=== PATIENT | male | born 1955 | race Caucasian/White ===

== ENCOUNTER 2021-05-30 17:23 | Inpatient (IN) | payer MEDICARE, OTHER ==
[2021-05-30] MEDS ORDERED: Sodium Chloride 0.9% 10 ML Syringe FLUSH PRN (18:23)
[2021-05-30] MEDS ORDERED: Sodium Chloride 0.9% 2.5 ML Syringe FLUSH PRN (18:23)
[2021-05-30] MEDS: Sodium Chloride 0.9% 1,000 ML IV ONE ×2 (18:28→19:17)
[2021-05-30] MEDS ORDERED: Ketorolac 30 MG/ML SDV IVPUSH ONE (18:35)
[2021-05-30] MEDS ORDERED: Ondansetron 4 MG/2 ML SDV IVPUSH ONE (18:35)
[2021-05-30] MEDS ORDERED: HYDROmorphone 2 MG/ML Syringe IVPUSH ONE (18:35)
--- NOTE | 2021-05-30 18:45 | PCM.EKG ---
#1 Interpretation EKG Date: 05/30/21 Time: 18:44 EKG Interpretation Comments: 106, sinus tachycardia, nonspecific ST/T findings
[2021-05-30 19:02] LABS: BLOOD UREA NITROGEN,BUN 15 mg/dL (7.0-18.0); CARBON DIOXIDE,CO2 23.6 mmol/L (21.0-32.0); CHLORIDE,CL 102 mmol/L (98-107); GLUCOSE RANDOM 158 mg/dL (74-106); LIPASE 76 U/L (73-393); POTASSIUM,K 3.6 mmol/L (3.5-5.1); SODIUM,NA 137 mmol/L (136-148)
[2021-05-30] MEDS ORDERED: Sodium Chloride 0.9% 1,000 ML IV ONE ×2 (19:02→22:16)
--- NOTE | 2021-05-30 19:15 | EDM.PDOC ---
ED HPI GENERAL MEDICAL PROBLEM - General Chief Complaint: Abdominal Pain Stated Complaint: STOMACH PAIN Time Seen by Provider: 05/30/21 18:14 Source of Information: Reports: Patient History Limitations: Reports: No Limitations - History of Present Illness INITIAL COMMENTS - FREE TEXT/NARRATIVE: HISTORY AND PHYSICAL: History of present illness: Patient is a 65-year-old male who presents emergency room today with concern of right upper quadrant abdominal pain over the past 3 to 4 days with decrease in appetite and states that he has not been able to eat or drink due to decrease in appetite and nausea. Patient states that his symptoms started after eating a [employer] burger a few days ago. Patient states that he has continued to have worsening pain and nausea and states that he has not tried to eat or drink due to his symptoms. Patient states he has a history of hypertension, hyperlipidemia, and type 2 diabetes on Metformin and denies any other health history. Patient denies any abdominal surgeries. Patient does state the pain does radiate into his chest at times. Patient denies fever, chills, shortness of breath, or cough. Denies headache, neck stiff ness, change in vision, syncope, or near syncope. Denies vomiting, diarrhea, constipation, or dysuria. Has not noted any blood in urine or stool. Review of systems: As per history of present illness and below otherwise all systems reviewed and negative. Past medical history: As per history of present illness and as reviewed below otherwise noncontributory. Surgical history: As per history of present illness and as reviewed below otherwise noncontributory. Social history: See social history for further information Family history: As per history of present illness and as reviewed below otherwise noncontributory. Physical exam: General: Patient is alert, oriented, and in no acute distress. Patient sitting comfortably on exam table. Patient is tachycardic 115's on exam, otherwise vitally stable and reviewed by me. HEENT: Atraumatic, normocephalic, pupils equal and reactive bilaterally, negative for conjunctival pallor or scleral icterus, mucous membranes moist, TMs normal bilaterally, throat clear, neck supple, nontender, trachea midline. No drooling or trismus noted. No meningeal signs. No hot potato voice noted. Lungs: Clear to auscultation, breath sounds equal bilaterally, chest nontender. Heart: S1S2, regular rate and rhythm without overt murmur Abdomen: Soft, nondistended, severe right upper quadrant tenderness with positive Dumont sign and guarding, negative rebound tenderness. Negative for masses or hepatosplenomegaly. Negative for costovertebral tenderness. Pelvis: Stable nontender. Genitourinary: Deferred. Rectal: Deferred. Skin: Intact, warm, dry. No lesions or rashes noted. Extremities: Atraumatic, negative for cords or calf pain. Neurovascular unremarkable. Neuro: Awake, alert, oriented. Cranial nerves II through XII unremarkable. Cerebellum unremarkable. Motor and sensory unremarkable throughout. Exam nonfocal. Notes: Patient is a 65-year-old male who presents emergency room today secondary to right upper quadrant abdominal pain over the past 2 days and decrease in appetite. Upon arrival to the ED, patient is tachycardic 115's on exam otherwise vitally stable. Patient does have significant right upper quadrant tenderness with positive Dumont sign and guarding. Will obtain lab work as well as cardiac evaluation with plan to obtain a right upper quadrant ultrasound abdominal pelvic CT scan with contrast. CBC shows a leukocytosis of 23.32 (will obtain lactate and blood cultures), otherwise mild derangements of CBC unremarkable. CMP shows a mildly elevated glucose at 158, bilirubin elevated at 1.4, alk phos elevated at 121, otherwise CMP unremarkable. Troponin negative. Lipase within normal limits. Lactate within normal limits blood cultures pending. Abd/Pelvic CT shows findings consistent with acute cholecystitis in the correct clinical setting. Hepatomegaly with hepatic steatosis. Colonic diverticulosis without diverticulitis. Abdominal ultrasound shows hepatomegaly with diffuse fatty infiltration. Gallbladder sludge and an otherwise normal-appearing gallbladder. NormalCommon bile duct. Sonographic positive Dumont sign Upon reevaluation of patient, he has improvement of his symptoms with ther apeutics given today in the ED. His tachycardia has now resolved to 93 bpm with therapeutics given today in the emergency room. I did call and speak to the general surgeon on-call, Dr. Quinteros, and thoroughly discussed patient's case. She would like patient to be admitted to the hospitalist with consult to her due to his diabetes. I did call and speak to the hospitalist on-call, Dr. Lomeli, and thoroughly discussed patient's case. Will admit to inpatient to Dr. Lomeli with consult to Dr. Quinteros, general surgery Voices understanding and is agreeable to plan of care. Denies any further questi ons or concerns at this time. Diagnostics: EKG, CBC, CMP, UA, chest x-ray, troponin, abdominal pelvic CT with contrast, right upper quadrant ultrasound, lactate, blood cultures x 2 Therapeutics: Normal saline bolus x2, Zofran, Toradol, Dilaudid, Zosyn Impression: Acute cholecystitis Plan: Admit to inpatient to Dr. Lomeli with consult to general surgeon, Dr. Quinteros Definitive disposition and diagnosis as appropriate pending reevaluation and review of above. epigastric Pain Score (Numeric/FACES): 8 - Related Data Allergies Allergy/AdvReac Type Severity Reaction Status Date / Time No Known Allergies Allergy Verified 05/30/21 18:17 Past Medical History HEENT History: Reports: Impaired Vision Cardiovascular History: Reports: High Cholesterol, Hypertension Respiratory History: Reports: None Gastrointestinal History: Reports: Fatty Liver Genitourinary History: Reports: None Musculoskeletal History: Reports: None Neurological History: Reports: None Psychiatric History: Reports: None Endocrine/Metabolic History: Reports: Diabetes, Type II Hematologic History: Reports: None Immunologic History: Reports: None Oncologic (Cancer) History: Reports: None Dermatologic History: Reports: None - Infectious Disease History Infectious Disease History: Reports: None - Past Surgical History Head Surgeries/Procedures: Reports: None HEENT Surgical History: Reports: None Cardiovascular Surgical History: Reports: None Respiratory Surgical History: Reports: None GI Surgical History: Reports: None Male Surgical History: Reports: None Endocrine Surgical History: Reports: None Neurological Surgical History: Reports: None Musculoskeletal Surgical History: Reports: None Oncologic Surgical History: Reports: None Dermatological Surgical History: Reports: None Social & Family History - Family History Family Medical History: No Pertinent Family History - Tobacco Use Tobacco Use Status *Q: Never Tobacco User Second Hand Smoke Exposure: No - Caffeine Use Caffeine Use: Reports: Soda - Recreational Drug Use Recreational Drug Use: No ED ROS GENERAL - Review of Systems Review Of Systems: Comprehensive ROS is negative, except as noted in HPI. ED EXAM, GENERAL - Physical Exam Exam: See Below (see dictation) Course - Vital Signs Last Recorded V/S: Last Vital Signs Temp 96.8 F L 05/30/21 18:18 Pulse 93 05/30/21 22:55 Resp 16 05/30/21 22:55 BP 130/77 05/30/21 22:55 Pulse Ox 97 05/30/21 22:55 - Orders/Labs/Meds Orders: Active Orders 24 hr Category Date Time Status Admission Status [Patient Status] [ADT] Stat ADT 05/30/21 22:24 Active Cardiac Monitoring [RC] . DIRECTED Care 05/30/21 18:23 Active EKG Documentation Completion [RC] STAT Care 05/30/21 18:23 Active Notify Provider Consults [RC] ASDIRECTED Care 05/30/21 22:11 Active Consult to Physician [CONS] Stat Cons 05/30/21 22:10 Active CULTURE BLOOD [BC] Stat Lab 05/30/21 19:03 Received CULTURE BLOOD [BC] Stat Lab 05/30/21 19:03 Received UA RFX NORMA AND CULT IF INDIC [URIN] Stat Lab 05/30/21 18:23 Ordered Piperacillin/Tazobactam [Piperacil-Tazobact] 3.375 gm Med 05/31/21 04:00 Active Sodium Chloride 0.9% [Normal Saline] 50 ml IV Q6H Sodium Chloride 0.9% [Normal Saline] 1,000 ml Med 05/30/21 22:16 Active IV STAT Sodium Chloride 0.9% [Saline Flush] Med 05/30/21 18:23 Active 10 ml FLUSH ASDIRECTED PRN Sodium Chloride 0.9% [Saline Flush] Med 05/30/21 18:23 Active 2.5 ml FLUSH ASDIRECTED PRN Blood Culture x2 Reflex Set [OM.PC] Stat Oth 05/30/21 18:54 Ordered Saline Lock Insert [OM.PC] Stat Oth 05/30/21 18:23 Ordered Medication Orders Sodium Chloride (Normal Saline) 1,000 mls @ 125 mls/hr IV STAT ONE Stop: 05/31/21 06:15 Last Admin: 05/30/21 22:51 Dose: 125 mls/hr Documented by: [email or web address] Piperacillin Sod/Tazobactam (Sod 3.375 gm/ Sodium Chloride) 50 mls @ 100 mls/hr IV Q6H SHANTELL Sodium Chloride (Sodium Chloride 0.9% 2.5 Ml Syringe) 2.5 ml FLUSH ASDIRECTED PRN PRN Reason: Keep Vein Open Last Admin: 05/30/21 18:29 Dose: 2.5 ml Documented by: [email or web address] Sodium Chloride (Sodium Chloride 0.9% 10 Ml Syringe) 10 ml FLUSH ASDIRECTED PRN PRN Reason: Keep Vein Open Last Admin: 05/30/21 18:29 Dose: 10 ml Documented by: ERNST Labs: Laboratory Tests 05/30/21 05/30/21 05/30/21 Range/Units 18:30 18:30 18:30 WBC 23.32 H (4.0-11.0) K/uL RBC 5.33 (4.50-5.90) M/uL Hgb 15.5 (13.0-17.0) g/dL Hct 45.3 (38.0-50.0) % MCV 85.0 (80.0-98.0) fL MCH 29.1 (27.0-32.0) pg MCHC 34.2 (31.0-37.0) g/dL RDW Std Deviation 46.9 (28.0-62.0) fl RDW Coeff of Ortega 15 (11.0-15.0) % Plt Count 315 (150-400) K/uL MPV 10.30 (7.40-12.00) fL Neut % (Auto) 85.9 H (48.0-80.0) % Lymph % (Auto) 4.9 L (16.0-40.0) % Stevens % (Auto) 8.9 (0.0-15.0) % Eos % (Auto) 0.2 (0.0-7.0) % Baso % (Auto) 0.1 (0.0-1.5) % Neut # (Auto) 20.0 H (1.4-5.7) K/uL Lymph # (Auto) 1.2 (0.6-2.4) K/uL Stevens # (Auto) 2.1 H (0.0-0.8) K/uL Eos # (Auto) 0.0 (0.0-0.7) K/uL Baso # (Auto) 0.0 (0.0-0.1) K/uL Nucleated RBC % 0.0 /100WBC Nucleated RBCs # 0 K/uL Sodium 137 (136-148) mmol/L Potassium 3.6 (3.5-5.1) mmol/L Chloride 102 (98-107) mmol/L Carbon Dioxide 23.6 (21.0-32.0) mmol/L BUN 15 (7.0-18.0) mg/dL Creatinine 1.2 (0.8-1.3) mg/dL Est Cr Clr Drug Dosing 64.49 mL/min Estimated GFR (MDRD) > 60.0 ml/min Glucose 158 H (74-106) mg/dL Hemoglobin A1c (4.5 - 6.2) % Lactic Acid (0.4-2.0) mmol/L Calcium 8.9 (8.5-10.1) mg/dL Magnesium 1.9 (1.8-2.4) mg/dL Total Bilirubin 1.4 H (0.2-1.0) mg/dL AST 15 (15-37) IU/L ALT 29 (14-63) IU/L Alkaline Phosphatase 121 H (46-116) U/L Troponin I < 0.050 (0.000-0.056) ng/mL Total Protein 7.7 (6.4-8.2) g/dL Albumin 3.7 (3.4-5.0) g/dL Globulin 4.0 (2.6-4.0) g/dL Albumin/Globulin Ratio 0.9 (0.9-1.6) Lipase 76 (73-393) U/L 05/30/21 05/30/21 Range/Units 18:30 18:43 WBC (4.0-11.0) K/uL RBC (4.50-5.90) M/uL Hgb (13.0-17.0) g/dL Hct (38.0-50.0) % MCV (80.0-98.0) fL MCH (27.0-32.0) pg MCHC (31.0-37.0) g/dL RDW Std Deviation (28.0-62.0) fl RDW Coeff of Ortega (11.0-15.0) % Plt Count (150-400) K/uL MPV (7.40-12.00) fL Neut % (Auto) (48.0-80.0) % Lymph % (Auto) (16.0-40.0) % Stevens % (Auto) (0.0-15.0) % Eos % (Auto) (0.0-7.0) % Baso % (Auto) (0.0-1.5) % Neut # (Auto) (1.4-5.7) K/uL Lymph # (Auto) (0.6-2.4) K/uL Stevens # (Auto) (0.0-0.8) K/uL Eos # (Auto) (0.0-0.7) K/uL Baso # (Auto) (0.0-0.1) K/uL Nucleated RBC % /100WBC Nucleated RBCs # K/uL Sodium (136-148) mmol/L Potassium (3.5-5.1) mmol/L Chloride (98-107) mmol/L Carbon Dioxide (21.0-32.0) mmol/L BUN (7.0-18.0) mg/dL Creatinine (0.8-1.3) mg/dL Est Cr Clr Drug Dosing mL/min Estimated GFR (MDRD) ml/min Glucose (74-106) mg/dL Hemoglobin A1c 6.2 (4.5 - 6.2) % Lactic Acid 1.3 (0.4-2.0) mmol/L Calcium (8.5-10.1) mg/dL Magnesium (1.8-2.4) mg/dL Total Bilirubin (0.2-1.0) mg/dL AST (15-37) IU/L ALT (14-63) IU/L Alkaline Phosphatase (46-116) U/L Troponin I (0.000-0.056) ng/mL Total Protein (6.4-8.2) g/dL Albumin (3.4-5.0) g/dL Globulin (2.6-4.0) g/dL Albumin/Globulin Ratio (0.9-1.6) Lipase (73-393) U/L Meds: Medications Generic Name Dose Route Start Last Admin Trade Name Freq PRN Reason Stop Dose Admin Sodium Chloride 1,000 mls @ 125 mls/hr 05/30/21 22:16 05/30/21 22:51 Normal Saline IV 05/31/21 06:15 125 mls/hr STAT ONE Administration Piperacillin Sod/Tazobactam 50 mls @ 100 mls/hr 05/31/21 04:00 Sod 3.375 gm/ Sodium Chloride IV Q6H SHANTELL Sodium Chloride 2.5 ml 05/30/21 18:23 05/30/21 18:29 Sodium Chloride 0.9% 2.5 Ml Syringe FLUSH 2.5 ml ASDIRECTED PRN Administration Keep Vein Open Sodium Chloride 10 ml 05/30/21 18:23 05/30/21 18:29 Sodium Chloride 0.9% 10 Ml Syringe FLUSH 10 ml ASDIRECTED PRN Administration Keep Vein Open Discontinued Medications Generic Name Dose Route Start Last Admin Trade Name Freq PRN Reason Stop Dose Admin Hydromorphone HCl 0.5 mg 05/30/21 18:35 05/30/21 18:55 Hydromorphone 2 Mg/Ml Syringe IVPUSH 05/30/21 18:36 0.5 mg ONETIME ONE Administration Sodium Chloride 1,000 mls @ 999 mls/hr 05/30/21 18:24 05/30/21 19:17 Normal Saline IV 05/30/21 19:24 Infused STAT ONE Infusion Sodium Chloride 1,000 mls @ 999 mls/hr 05/30/21 19:02 05/30/21 19:18 Normal Saline IV 05/30/21 20:02 999 mls/hr STAT ONE Administration Piperacillin Sod/Tazobactam 50 mls @ 100 mls/hr 05/30/21 22:06 05/30/21 22:49 Sod 3.375 gm/ Sodium Chloride IV 05/30/21 22:35 100 mls/hr ONETIME ONE Administration Iopamidol 100 ml 05/30/21 20:51 05/30/21 20:51 Iopamidol 755 Mg/Ml 100 Ml Bottle IVPUSH 05/30/21 20:52 100 ml ONETIME ONE Administration Ketorolac Tromethamine 30 mg 05/30/21 18:35 05/30/21 18:56 Ketorolac 30 Mg/Ml Sdv IVPUSH 05/30/21 18:36 30 mg ONETIME ONE Administration Ondansetron HCl 4 mg 05/30/21 18:35 05/30/21 18:57 Ondansetron 4 Mg/2 Ml Sdv IVPUSH 05/30/21 18:36 4 mg ONETIME ONE Administration Departure - Departure Time of Disposition: 22:52 Disposition: Admitted As Inpatient 65 Clinical Impression: Acute cholecystitis - Discharge Information Referrals: PCP,Not In Area [Primary Care Provider] - Forms: ED Department Discharge Sepsis Event Note (ED) - Evaluation Sepsis Screening Result: No Definite Risk - Focused Exam Vital Signs: Vital Signs Temp Pulse Resp BP Pulse Ox 05/30/21 22:55 93 16 130/77 97 05/30/21 18:18 96.8 F L 114 H 18 136/96 H 94 L - My Orders Last 24 Hours: My Active Orders 05/30/21 18:23 Cardiac Monitoring [RC] . DIRECTED EKG Documentation Completion [RC] STAT UA RFX NORMA AND CULT IF INDIC [URIN] Stat Sodium Chloride 0.9% [Saline Flush] 10 ml FLUSH ASDIRECTED PRN Sodium Chloride 0.9% [Saline Flush] 2.5 ml FLUSH ASDIRECTED PRN Saline Lock Insert [OM.PC] Stat 05/30/21 18:54 Blood Culture x2 Reflex Set [OM.PC] Stat 05/30/21 19:03 CULTURE BLOOD [BC] Stat CULTURE BLOOD [BC] Stat 05/30/21 22:10 Consult to Physician [CONS] Stat 05/30/21 22:11 Notify Provider Consults [RC] ASDIRECTED 05/30/21 22:16 Sodium Chloride 0.9% [Normal Saline] 1,000 ml IV STAT 05/30/21 22:24 Admission Status [Patient Status] [ADT] Stat - Assessment/Plan Last 24 Hours: My Active Orders 05/30/21 18:23 Cardiac Monitoring [RC] . DIRECTED EKG Documentation Completion [RC] STAT UA RFX NORMA AND CULT IF INDIC [URIN] Stat Sodium Chloride 0.9% [Saline Flush] 10 ml FLUSH ASDIRECTED PRN Sodium Chloride 0.9% [Saline Flush] 2.5 ml FLUSH ASDIRECTED PRN Saline Lock Insert [OM.PC] Stat 05/30/21 18:54 Blood Culture x2 Reflex Set [OM.PC] Stat 05/30/21 19:03 CULTURE BLOOD [BC] Stat CULTURE BLOOD [BC] Stat 05/30/21 22:10 Consult to Physician [CONS] Stat 05/30/21 22:11 Notify Provider Consults [RC] ASDIRECTED 05/30/21 22:16 Sodium Chloride 0.9% [Normal Saline] 1,000 ml IV STAT 05/30/21 22:24 Admission Status [Patient Status] [ADT] Stat
[2021-05-30] MEDS ORDERED: Iopamidol 755 Mg/ML 100 ML Bottle IVPUSH ONE (20:51)
--- NOTE | 2021-05-30 21:12 | CR ---
INDICATION: Pain and shortness of breath. TECHNIQUE: AP portable chest x-ray. FINDINGS: Prominent fat pad at the cardiac apex. Heart size normal. Tortuous descending thoracic aorta. No focal infiltrate or consolidation in either lung. Mild elevation right hemidiaphragm. Chest otherwise negative without acute disease. Dictated by Anthony Yousif MD @ 05/30/2021 9:09:[address] Anthony Yousif @ May 30 2021 9:09PM
--- NOTE | 2021-05-30 21:43 | CT ---
INDICATION: Abdominal pain TECHNIQUE: CT abdomen and pelvis acquired with IV contrast. 100 mL of Isovue 370 administered. COMPARISON: None available FINDINGS: Lower chest: A 2-3 mm right lower lobe nodule on image 20 of series 201, statistically postinflammatory by size, without history of neoplasm or high risk factors. Sub centimeter distal periesophageal lymph nodes, nonspecific. Liver: Hepatomegaly measuring 22 cm. Hepatic steatosis. Spleen: Unremarkable. Pancreas: Unremarkable. Gallbladder and bile ducts: A distended gallbladder with gallbladder wall thickening, pericholecystic stranding and edema, as well as small regional fluid. Apparent gallbladder sludge, and focal increased attenuation in the proximal cystic duct on image 53 of series 201 and images 50 and 51 of series 203. A small ovoid high attenuation focus near the gallbladder neck on image 55 of series 201 could be pericholecystic and may represent a small enhancing reactive lymph node. No biliary dilatation. Adrenal glands: Unremarkable. Kidneys: Partial duplication of the right renal collecting system. No hydronephrosis. Subcentimeter left renal low-density lesions, statistically small cysts. GI tract: No bowel obstruction. A normal appendix. Left colonic diverticulosis without diverticulitis. Vascular structures: Atherosclerotic changes. Lymph nodes: No abnormally enlarged lymph nodes. Miscellaneous: No free air. Small fat containing inguinal hernias. Pelvic Organs: Mild bladder wall prominence could be related to incomplete distention. A grossly unremarkable prostate. Bones: Degenerative changes in the spine and slight lumbar scoliosis. Mild, early degenerative changes in the hips. IMPRESSION: Findings consistent with acute cholecystitis in the correct clinical setting. Hepatomegaly and hepatic steatosis. Colonic diverticulosis without diverticulitis. Other findings as above. Please note that all CT scans at this facility use dose modulation, iterative reconstruction, and/or weight-based dosing when appropriate to reduce radiation dose to as low as reasonably achievable. Dictated by Rnezo Burroughs MD @ 05/30/2021 9:41:[address] Renzo Burroughs @ May 30 2021 9:41PM
[2021-05-30] MEDS ORDERED: Piperacillin/Tazobactam 3.375 GM in Sodium Chloride 0.9% 50 ML IV ONE (22:06)
--- NOTE | 2021-05-30 22:23 | US ---
INDICATION: Right upper quadrant pain TECHNIQUE: Ultrasound abdomen limited. Sonographic images of the right upper quadrant were obtained using yan-scale and color Doppler images. COMPARISON: None FINDINGS: Liver: Hepatomegaly at 19.2 centimeters with diffuse fatty infiltration. No masses. No intrahepatic biliary dilatation. Hepatopetal portal flow. Gallbladder: Gallbladder sludge is present. Normal wall thickness. No pericholecystic fluid. Positive sonographic Dumont sign. Common bile duct: 2 mm. Pancreas: Normal. Right kidney: 11.4 cm. Normal echotexture and cortex. No masses, stones, or hydronephrosis. IMPRESSION: Hepatomegaly with diffuse fatty infiltration. Gallbladder sludge in an otherwise normal appearing gallbladder. Normal common bile duct. Positive sonographic Dumont sign. Dictated by Loc Lopez MD @ 05/30/2021 10:20:[address] Loc Lopez @ May 30 2021 10:20PM
[2021-05-30 22:24] LABS: HEMOGLOBIN A1C 6.2 %
--- NOTE | 2021-05-30 23:58 | PCM.HP.2 ---
H&P History of Present Illness - General Date of Service: 05/31/21 Admit Problem/Dx: Admission Diagnosis/Problem Admission Diagnosis/Problem Acute cholecystitis - History of Present Illness Initial Comments - Free Text/Narative: 65 yo male with pmh of DM and HTN who presents with three day history of right upper quadrant pain. Patient denies any fevers, nausea or vomiting. CT scan in the ED was suggestive of cholecystitis. epigastric Pain Score (Numeric/FACES): 8 - Related Data Allergies/Adverse Reactions: Allergies Allergy/AdvReac Type Severity Reaction Status Date / Time No Known Allergies Allergy Verified 05/31/21 01:49 Home Medications: Home Meds Aspirin [Ecotrin EC] 81 mg PO DAILY 05/31/21 [History] Escitalopram [Lexapro] 20 mg PO DAILY 05/31/21 [History] Meloxicam PO DAILY 05/31/21 [History] Naproxen Sodium [Naproxen Sodium ER] 500 mg PO BID 05/31/21 [History] atorvaSTATin [Lipitor] 40 mg PO DAILY 05/31/21 [History] metFORMIN [Glucophage XR] 500 mg PO DAILY 05/31/21 [History] Past Medical History HEENT History: Reports: Impaired Vision Cardiovascular History: Reports: High Cholesterol, Hypertension Respiratory History: Reports: None Gastrointestinal History: Reports: Fatty Liver Genitourinary History: Reports: None Musculoskeletal History: Reports: None Neurological History: Reports: None Psychiatric History: Reports: None Endocrine/Metabolic History: Reports: Diabetes, Type II Hematologic History: Reports: None Immunologic History: Reports: None Oncologic (Cancer) History: Reports: None Dermatologic History: Reports: None - Infectious Disease History Infectious Disease History: Reports: None - Past Surgical History Head Surgeries/Procedures: Reports: None HEENT Surgical History: Reports: None Cardiovascular Surgical History: Reports: None Respiratory Surgical History: Reports: None GI Surgical History: Reports: None Male Surgical History: Reports: None Endocrine Surgical History: Reports: None Neurological Surgical History: Reports: None Musculoskeletal Surgical History: Reports: None Oncologic Surgical History: Reports: None Dermatological Surgical History: Reports: None Social & Family History - Family History Family Medical History: No Pertinent Family History - Tobacco Use Tobacco Use Status *Q: Never Tobacco User Second Hand Smoke Exposure: No - Caffeine Use Caffeine Use: Reports: Soda - Recreational Drug Use Recreational Drug Use: No H&P Review of Systems - Review of Systems: Review Of Systems: Comprehensive ROS is negative, except as noted in HPI. Exam - Exam Exam: See Below - Vital Signs Vital Signs: Last Vital Signs Temp 36.0 C L 05/30/21 18:18 Pulse 93 05/30/21 22:55 Resp 16 05/30/21 22:55 BP 130/77 05/30/21 22:55 Pulse Ox 97 05/30/21 22:55 Weight: 102.058 kg - Exam General: Alert, Oriented HEENT: Mucosa Moist & [place] Neck: Supple Lungs: Clear to Auscultation Cardiovascular: Regular Rate, Regular Rhythm GI/Abdominal Exam: Soft, Tender (RUQ). No: No Distention Extremities: Non-Tender, No Pedal Edema - Patient Data Lab Results Last 24 hrs: Laboratory Results - last 24 hr 05/30/21 05/30/21 05/30/21 Range/Units 18:30 18:30 18:30 WBC 23.32 H (4.0-11.0) K/uL RBC 5.33 (4.50-5.90) M/uL Hgb 15.5 (13.0-17.0) g/dL Hct 45.3 (38.0-50.0) % MCV 85.0 (80.0-98.0) fL MCH 29.1 (27.0-32.0) pg MCHC 34.2 (31.0-37.0) g/dL RDW Std Deviation 46.9 (28.0-62.0) fl RDW Coeff of Ortega 15 (11.0-15.0) % Plt Count 315 (150-400) K/uL MPV 10.30 (7.40-12.00) fL Neut % (Auto) 85.9 H (48.0-80.0) % Lymph % (Auto) 4.9 L (16.0-40.0) % [place] % (Auto) 8.9 (0.0-15.0) % Eos % (Auto) 0.2 (0.0-7.0) % Baso % (Auto) 0.1 (0.0-1.5) % Neut # (Auto) 20.0 H (1.4-5.7) K/uL Lymph # (Auto) 1.2 (0.6-2.4) K/uL [place] # (Auto) 2.1 H (0.0-0.8) K/uL Eos # (Auto) 0.0 (0.0-0.7) K/uL Baso # (Auto) 0.0 (0.0-0.1) K/uL Nucleated RBC % 0.0 /100WBC Nucleated RBCs # 0 K/uL Sodium 137 (136-148) mmol/L Potassium 3.6 (3.5-5.1) mmol/L Chloride 102 (98-107) mmol/L Carbon Dioxide 23.6 (21.0-32.0) mmol/L BUN 15 (7.0-18.0) mg/dL Creatinine 1.2 (0.8-1.3) mg/dL Est Cr Clr Drug Dosing 64.49 mL/min Estimated GFR (MDRD) > 60.0 ml/min Glucose 158 H (74-106) mg/dL Hemoglobin A1c (4.5 - 6.2) % Lactic Acid (0.4-2.0) mmol/L Calcium 8.9 (8.5-10.1) mg/dL Magnesium 1.9 (1.8-2.4) mg/dL Total Bilirubin 1.4 H (0.2-1.0) mg/dL AST 15 (15-37) IU/L ALT 29 (14-63) IU/L Alkaline Phosphatase 121 H (46-116) U/L Troponin I < 0.050 (0.000-0.056) ng/mL Total Protein 7.7 (6.4-8.2) g/dL Albumin 3.7 (3.4-5.0) g/dL Globulin 4.0 (2.6-4.0) g/dL Albumin/Globulin Ratio 0.9 (0.9-1.6) Lipase 76 (73-393) U/L 05/30/21 05/30/21 Range/Units 18:30 18:43 WBC (4.0-11.0) K/uL RBC (4.50-5.90) M/uL Hgb (13.0-17.0) g/dL Hct (38.0-50.0) % MCV (80.0-98.0) fL MCH (27.0-32.0) pg MCHC (31.0-37.0) g/dL RDW Std Deviation (28.0-62.0) fl RDW Coeff of Ortega (11.0-15.0) % Plt Count (150-400) K/uL MPV (7.40-12.00) fL Neut % (Auto) (48.0-80.0) % Lymph % (Auto) (16.0-40.0) % [place] % (Auto) (0.0-15.0) % Eos % (Auto) (0.0-7.0) % Baso % (Auto) (0.0-1.5) % Neut # (Auto) (1.4-5.7) K/uL Lymph # (Auto) (0.6-2.4) K/uL [place] # (Auto) (0.0-0.8) K/uL Eos # (Auto) (0.0-0.7) K/uL Baso # (Auto) (0.0-0.1) K/uL Nucleated RBC % /100WBC Nucleated RBCs # K/uL Sodium (136-148) mmol/L Potassium (3.5-5.1) mmol/L Chloride (98-107) mmol/L Carbon Dioxide (21.0-32.0) mmol/L BUN (7.0-18.0) mg/dL Creatinine (0.8-1.3) mg/dL Est Cr Clr Drug Dosing mL/min Estimated GFR (MDRD) ml/min Glucose (74-106) mg/dL Hemoglobin A1c 6.2 (4.5 - 6.2) % Lactic Acid 1.3 (0.4-2.0) mmol/L Calcium (8.5-10.1) mg/dL Magnesium (1.8-2.4) mg/dL Total Bilirubin (0.2-1.0) mg/dL AST (15-37) IU/L ALT (14-63) IU/L Alkaline Phosphatase (46-116) U/L Troponin I (0.000-0.056) ng/mL Total Protein (6.4-8.2) g/dL Albumin (3.4-5.0) g/dL Globulin (2.6-4.0) g/dL Albumin/Globulin Ratio (0.9-1.6) Lipase (73-393) U/L Result Diagrams: 06/01/21 05:00 06/01/21 05:00 Sepsis Event Note - Evaluation Sepsis Screening Result: No Definite Risk - Focused Exam Vital Signs: Vital Signs Temp Pulse Resp BP Pulse Ox 05/30/21 22:55 93 16 130/77 97 05/30/21 18:18 36.0 C L 114 H 18 136/96 H 94 L - Problem List (1) Sepsis SNOMED Code(s): 83574078 ICD Code: A41.9 - SEPSIS, UNSPECIFIED ORGANISM Status: Acute Current Visit: Yes Qualifiers: Sepsis type: sepsis due to unspecified organism Sepsis acute organ dysf unction status: without acute organ dysfunction Qualified Code(s): A41.9 - Sepsis, unspecified organism (2) Acute cholecystitis SNOMED Code(s): 62118822 ICD Code: K81.0 - ACUTE CHOLECYSTITIS Status: Acute Current Visit: Yes Problem List Initiated/Reviewed/Updated: Yes Orders Last 24hrs: Active Orders 24 hr Category Date Time Status Admission Status [Patient Status] [ADT] Stat ADT 05/30/21 22:24 Active Cardiac Monitoring [RC] . DIRECTED Care 05/30/21 18:23 Active Notify Provider Consults [RC] ASDIRECTED Care 05/30/21 22:11 Active Consult to Physician [CONS] Stat Cons 05/30/21 22:10 Active CULTURE BLOOD [BC] Stat Lab 05/30/21 19:03 Received CULTURE BLOOD [BC] Stat Lab 05/30/21 19:03 Received UA RFX NORMA AND CULT IF INDIC [URIN] Stat Lab 05/30/21 18:23 Ordered Piperacillin/Tazobactam [Piperacil-Tazobact] 3.375 gm Med 05/31/21 04:00 Acti ve Sodium Chloride 0.9% [Normal Saline] 50 ml IV Q6H Sodium Chloride 0.9% [Normal Saline] 1,000 ml Med 05/30/21 22:16 Active IV STAT Sodium Chloride 0.9% [Saline Flush] Med 05/30/21 18:23 Active 10 ml FLUSH ASDIRECTED PRN Sodium Chloride 0.9% [Saline Flush] Med 05/30/21 18:23 Active 2.5 ml FLUSH ASDIRECTED PRN Blood Culture x2 Reflex Set [OM.PC] Stat Oth 05/30/21 18:54 Ordered Saline Lock Insert [OM.PC] Stat Oth 05/30/21 18:23 Ordered Medication Orders Sodium Chloride (Normal Saline) 1,000 mls @ 125 mls/hr IV STAT ONE Stop: 05/31/21 06:15 Last Admin: 05/30/21 22:51 Dose: 125 mls/hr Documented by: GISELLE Piperacillin Sod/Tazobactam (Sod 3.375 gm/ Sodium Chloride) 50 mls @ 100 mls/hr IV Q6H SHANTELL Sodium Chloride (Sodium Chloride 0.9% 2.5 Ml Syringe) 2.5 ml FLUSH ASDIRECTED PRN PRN Reason: Keep Vein Open Last Admin: 05/30/21 18:29 Dose: 2.5 ml Documented by: ERNST Sodium Chloride (Sodium Chloride 0.9% 10 Ml Syringe) 10 ml FLUSH ASDIRECTED PRN PRN Reason: Keep Vein Open Last Admin: 05/30/21 18:29 Dose: 10 ml Documented by: ERNST Assessment/Plan Comment:: 65 yo male admitted with acute cholecystitis. We will treat with Zosyn. Will keep NPO for now. Dr. Quinteros was consulted by ED physician.
[2021-05-30] MEDS ORDERED: 50% Dextrose in Water 50 ML Syringe IVPUSH PRN (23:59)
[2021-05-30] MEDS ORDERED: Glucagon,Human Recombinant 1 MG Vial IM PRN (23:59)
[2021-05-31] MEDS ORDERED: Ondansetron 4 MG/2 ML SDV IVPUSH PRN ×2 (00:21→10:31)
[2021-05-31] MEDS: Sodium Chloride 0.9% 1,000 ML IV SCH ×2 (00:59→09:50)
[2021-05-31] MEDS: HYDROmorphone 2 MG/ML Syringe IVPUSH PRN ×3 (01:08→15:12)
[2021-05-31] MEDS: Insulin Aspart 100 Units/ML 3 ML Pen SUBCUT SCH ×4 (01:22→18:42)
[2021-05-31] MEDS: Piperacillin/Tazobactam 3.375 GM in Sodium Chloride 0.9% 50 ML IV SCH ×2 (04:47→19:56)
[2021-05-31 06:18] LABS: BLOOD UREA NITROGEN,BUN 11 mg/dL (7.0-18.0); CARBON DIOXIDE,CO2 21.3 mmol/L (21.0-32.0); CHLORIDE,CL 107 mmol/L (98-107); GLUCOSE RANDOM 111 mg/dL (74-106); POTASSIUM,K 3.5 mmol/L (3.5-5.1); SODIUM,NA 138 mmol/L (136-148)
[2021-05-31] MEDS ORDERED: Naloxone 0.4 MG/ML Syringe IVPUSH PRN (10:31)
[2021-05-31] MEDS ORDERED: HYDROmorphone 2 MG/ML Syringe IVPUSH PRN (10:31)
[2021-05-31] MEDS ORDERED: Metoclopramide 10 MG/2 ML SDV IVPUSH PRN (10:31)
[2021-05-31] MEDS ORDERED: Morphine 2 MG/ML SYRINGE IVPUSH PRN (10:31)
[2021-05-31] MEDS ORDERED: Albuterol 0.083% 2.5 MG/3 ML Neb Soln NEB PRN (10:31)
[2021-05-31] MEDS ORDERED: fentaNYL 100 MCG/2 ML SDV IVPUSH PRN (10:31)
[2021-05-31] MEDS: Piperacillin/Tazobactam 3.375 GM in Sodium Chloride 0.9% 100 ML IV SCH ×3 (10:41→23:05)
--- NOTE | 2021-05-31 10:41 | PCM.PREANE ---
Preanesthetic Assessment - Anesthesia/Transfusion/Family Hx Anesthesia History: Prior Anesthesia Without Reaction Transfusion History: No Prior Transfusion(s) - Review of Systems General: No Symptoms Pulmonary: No Symptoms Cardiovascular: No Symptoms Gastrointestinal: No Symptoms Neurological: No Symptoms Other: Reports: None - Physical Assessment NPO Status Date: 05/31/21 NPO Status Time: 00:00 Vital Signs: Last Vital Signs Temp 99.8 F 05/31/21 04:00 Pulse 89 05/31/21 04:00 Resp 18 05/31/21 04:00 BP 127/72 05/31/21 04:00 Pulse Ox 91 L 05/31/21 04:00 Height: 5 ft 11 in Weight: 226 lb 3.2 oz ASA Class: 3E Mental Status: Alert & Oriented x3 Airway Class: Mallampati = 2 Dentition: Reports: Dentures, Missing Tooth/Teeth, Caries Thyro-Mental Finger Breadths: 3 Mouth Opening Finger Breadths: 3 ROM/Head Extension: Full Lungs: Clear to Auscultation, Normal Respiratory Effort Cardiovascular: Regular Rate, Regular Rhythm - Lab Values: Laboratory Last Values WBC 19.03 K/uL (4.0-11.0) H 05/31/21 05:37 RBC 4.57 M/uL (4.50-5.90) 05/31/21 05:37 Hgb 13.2 g/dL (13.0-17.0) 05/31/21 05:37 Hct 39.0 % (38.0-50.0) 05/31/21 05:37 MCV 85.3 fL (80.0-98.0) 05/31/21 05:37 MCH 28.9 pg (27.0-32.0) 05/31/21 05:37 MCHC 33.8 g/dL (31.0-37.0) 05/31/21 05:37 RDW Std Deviation 47.5 fl (28.0-62.0) 05/31/21 05:37 RDW Coeff of Ortega 15 % (11.0-15.0) 05/31/21 05:37 Plt Count 228 K/uL (150-400) 05/31/21 05:37 MPV 9.90 fL (7.40-12.00) 05/31/21 05:37 Neut % (Auto) 87.3 % (48.0-80.0) H 05/31/21 05:37 Lymph % (Auto) 4.9 % (16.0-40.0) L 05/31/21 05:37 [place] % (Auto) 7.5 % (0.0-15.0) 05/31/21 05:37 Eos % (Auto) 0.2 % (0.0-7.0) 05/31/21 05:37 Baso % (Auto) 0.1 % (0.0-1.5) 05/31/21 05:37 Neut # (Auto) 16.6 K/uL (1.4-5.7) H 05/31/21 05:37 Lymph # (Auto) 0.9 K/uL (0.6-2.4) 05/31/21 05:37 [place] # (Auto) 1.4 K/uL (0.0-0.8) H 05/31/21 05:37 Eos # (Auto) 0.0 K/uL (0.0-0.7) 05/31/21 05:37 Baso # (Auto) 0.0 K/uL (0.0-0.1) 05/31/21 05:37 Nucleated RBC % 0.0 /100WBC 05/31/21 05:37 Nucleated RBCs # 0 K/uL 05/31/21 05:37 Sodium 138 mmol/L (136-148) 05/31/21 05:37 Potassium 3.5 mmol/L (3.5-5.1) 05/31/21 05:37 Chloride 107 mmol/L (98-107) 05/31/21 05:37 Carbon Dioxide 21.3 mmol/L (21.0-32.0) 05/31/21 05:37 BUN 11 mg/dL (7.0-18.0) 05/31/21 05:37 Creatinine 1.1 mg/dL (0.8-1.3) 05/31/21 05:37 Est Cr Clr Drug Dosing 70.36 mL/min 05/31/21 05:37 Estimated GFR (MDRD) > 60.0 ml/min 05/31/21 05:37 Glucose 111 mg/dL (74-106) H 05/31/21 05:37 POC Glucose 110 mg/dL (70-99) H 05/31/21 06:23 Hemoglobin A1c 6.2 % (4.5-6.2) 05/30/21 18:30 Lactic Acid 1.3 mmol/L (0.4-2.0) 05/30/21 18:43 Calcium 7.5 mg/dL (8.5-10.1) L 05/31/21 05:37 Magnesium 1.9 mg/dL (1.8-2.4) 05/30/21 18:30 Total Bilirubin 1.4 mg/dL (0.2-1.0) H 05/31/21 05:37 AST 15 IU/L (15-37) 05/31/21 05:37 ALT 23 IU/L (14-63) 05/31/21 05:37 Alkaline Phosphatase 102 U/L (46-116) 05/31/21 05:37 Troponin I < 0.050 ng/mL (0.000-0.056) 05/30/21 18:30 Total Protein 6.1 g/dL (6.4-8.2) L 05/31/21 05:37 Albumin 2.8 g/dL (3.4-5.0) L 05/31/21 05:37 Globulin 3.3 g/dL (2.6-4.0) 05/31/21 05:37 Albumin/Globulin Ratio 0.9 (0.9-1.6) 05/31/21 05:37 Lipase 76 U/L (73-393) 05/30/21 18:30 Urine Color ORANGE 05/31/21 01:15 Urine Appearance CLEAR 05/31/21 01:15 Urine pH 5.5 (5.0-8.0) 05/31/21 01:15 Ur Specific Bells 1.020 (1.001-1.035) 05/31/21 01:15 Urine Protein TRACE mg/dL (NEGATIVE) H 05/31/21 01:15 Urine Glucose (UA) NEGATIVE mg/dL (NEGATIVE) 05/31/21 01:15 Urine Ketones NEGATIVE mg/dL (NEGATIVE) 05/31/21 01:15 Urine Occult Blood NEGATIVE (NEGATIVE) 05/31/21 01:15 Urine Nitrite NEGATIVE (NEGATIVE) 05/31/21 01:15 Urine Bilirubin NEGATIVE (NEGATIVE) 05/31/21 01:15 Urine Urobilinogen 1.0 EU/dL (<2.0) 05/31/21 01:15 Ur Leukocyte Esterase NEGATIVE (NEGATIVE) 05/31/21 01:15 Urine RBC 0-1 (0-2/HPF) 05/31/21 01:15 Urine WBC 0-1 (0-5/HPF) 05/31/21 01:15 Ur Epithelial Cells RARE (NONE-FEW) 05/31/21 01:15 Urine Bacteria RARE (NEGATIVE) 05/31/21 01:15 - Allergies Allergies/Adverse Reactions: Allergies Allergy/AdvReac Type Severity Reaction Status Date / Time No Known Allergies Allergy Verified 05/31/21 01:49 - Acknowledgements Anesthesia Type Planned: General Anesthesia Pt an Appropriate Candidate for the Planned Anesthesia: Yes Alternatives and Risks of Anesthesia Discussed w Pt/Guardian: Yes Pt/Guardian Understands and Agrees with Anesthesia Plan: Yes PreAnesthesia Questionnaire HEENT History: Reports: Impaired Vision Cardiovascular History: Reports: High Cholesterol, Hypertension Respiratory History: Reports: None Gastrointestinal History: Reports: Fatty Liver Genitourinary History: Reports: None Musculoskeletal History: Reports: None Neurological History: Reports: None Psychiatric History: Reports: None Endocrine/Metabolic History: Reports: Diabetes, Type II Hematologic History: Reports: None Immunologic History: Reports: None Oncologic (Cancer) History: Reports: None Dermatologic History: Reports: None - Infectious Disease History Infectious Disease History: Reports: None - Past Surgical History Head Surgeries/Procedures: Reports: None HEENT Surgical History: Reports: None Cardiovascular Surgical History: Reports: None Respiratory Surgical History: Reports: None GI Surgical History: Reports: None Male Surgical History: Reports: None Endocrine Surgical History: Reports: None Neurological Surgical History: Reports: None Musculoskeletal Surgical History: Reports: None Oncologic Surgical History: Reports: None Dermatological Surgical History: Reports: None - SUBSTANCE USE Tobacco Use Status *Q: Former Tobacco User Tobacco Use Within Last Twelve Months: No Second Hand Smoke Exposure: No Recreational Drug Use History: No - HOME MEDS Home Medications: Home Meds Aspirin [Ecotrin EC] 81 mg PO DAILY 05/31/21 [History] Escitalopram [Lexapro] 20 mg PO DAILY 05/31/21 [History] Meloxicam PO DAILY 05/31/21 [History] Naproxen Sodium [Naproxen Sodium ER] 500 mg PO BID 05/31/21 [History] atorvaSTATin [Lipitor] 40 mg PO DAILY 05/31/21 [History] metFORMIN [Glucophage XR] 500 mg PO DAILY 05/31/21 [History] - CURRENT (IN HOUSE) MEDS Current Meds: Current Medications Albuterol (Albuterol 0.083% 2.5 Mg/3 Ml Neb Soln) 2.5 mg NEB ONETIME PRN PRN Reason: Wheezing Dextrose/Water (50% Dextrose In Water 50 Ml Syringe) 50 ml IVPUSH ASDIRECTED PRN PRN Reason: Hypoglycemia Droperidol (Droperidol 5 Mg/2 Ml Sdv) 0.625 mg IVPUSH ONETIME PRN PRN Reason: Nausea/Vomiting Fentanyl (Fentanyl 100 Mcg/2 Ml Sdv) 50 mcg IVPUSH Q5M PRN PRN Reason: Pain (mild 1-3) Glucagon (Glucagon,Human Recombinant 1 Mg Vial) 1 mg IM ASDIRECTED PRN PRN Reason: Hypoglycemia Hydromorphone HCl (Hydromorphone 2 Mg/Ml Syringe) 0.5 mg IVPUSH Q2H PRN PRN Reason: Pain (severe 7-10) Last Admin: 05/31/21 04:47 Dose: 0.5 mg Documented by: Hydromorphone HCl (Hydromorphone 2 Mg/Ml Syringe) 1 mg IVPUSH Q10M PRN PRN Reason: Pain (moderate 4-6) Sodium Chloride (Normal Saline) 1,000 mls @ 125 mls/hr IV ASDIRECTED [facility] Last Admin: 05/31/21 09:50 Dose: 125 mls/hr Documented by: Piperacillin Sod/Tazobactam (Sod 3.375 gm/ Sodium Chloride) 100 mls @ 200 mls/hr IV Q6H [facility] Insulin Aspart (Insulin Aspart 100 Units/Ml 3 Ml Pen) 0 unit SUBCUT Q6H [facility]; Protocol Last Admin: 05/31/21 06:31 Dose: Not Given Documented by: Metoclopramide HCl (Metoclopramide 10 Mg/2 Ml Sdv) 10 mg IVPUSH ONETIME PRN PRN Reason: Nausea/Vomiting Morphine Sulfate (Morphine 10 Mg/Ml Syringe) 2 mg IVPUSH Q10M PRN PRN Reason: Pain (severe 7-10) Naloxone HCl (Naloxone 0.4 Mg/Ml Syringe) 0.1 mg IVPUSH ASDIRECTED PRN PRN Reason: Respiratory Depression Ondansetron HCl (Ondansetron 4 Mg/2 Ml Sdv) 4 mg IVPUSH Q4H PRN PRN Reason: Nausea Ondansetron HCl (Ondansetron 4 Mg/2 Ml Sdv) 4 mg IVPUSH ONETIME PRN PRN Reason: Nausea/Vomiting Sodium Chloride (Sodium Chloride 0.9% 2.5 Ml Syringe) 2.5 ml FLUSH ASDIRECTED PRN PRN Reason: Keep Vein Open Last Admin: 05/30/21 18:29 Dose: 2.5 ml Documented by: Sodium Chloride (Sodium Chloride 0.9% 10 Ml Syringe) 10 ml FLUSH ASDIRECTED PRN PRN Reason: Keep Vein Open Last Admin: 05/30/21 18:29 Dose: 10 ml Documented by: Discontinued Medications Hydromorphone HCl (Hydromorphone 2 Mg/Ml Syringe) 0.5 mg IVPUSH ONETIME ONE Stop: 05/30/21 18:36 Last Admin: 05/30/21 18:55 Dose: 0.5 mg Documented by: Sodium Chloride (Normal Saline) 1,000 mls @ 999 mls/hr IV STAT ONE Stop: 05/30/21 19:24 Last Infusion: 05/30/21 19:17 Dose: Infused Documented by: Sodium Chloride (Normal Saline) 1,000 mls @ 999 mls/hr IV STAT ONE Stop: 05/30/21 20:02 Last Admin: 05/30/21 19:18 Dose: 999 mls/hr Documented by: Piperacillin Sod/Tazobactam (Sod 3.375 gm/ Sodium Chloride) 50 mls @ 100 mls/hr IV ONETIME ONE Stop: 05/30/21 22:35 Last Admin: 05/30/21 22:49 Dose: 100 mls/hr Documented by: Sodium Chloride (Normal Saline) 1,000 mls @ 125 mls/hr IV STAT ONE Stop: 05/31/21 06:15 Last Admin: 05/30/21 22:51 Dose: 125 mls/hr Documented by: Piperacillin Sod/Tazobactam (Sod 3.375 gm/ Sodium Chloride) 50 mls @ 100 mls/hr IV Q6H SHANTELL Last Admin: 05/31/21 04:47 Dose: 100 mls/hr Documented by: Iopamidol (Iopamidol 755 Mg/Ml 100 Ml Bottle) 100 ml IVPUSH ONETIME ONE Stop: 05/30/21 20:52 Last Admin: 05/30/21 20:51 Dose: 100 ml Documented by: Ketorolac Tromethamine (Ketorolac 30 Mg/Ml Sdv) 30 mg IVPUSH ONETIME ONE Stop: 05/30/21 18:36 Last Admin: 05/30/21 18:56 Dose: 30 mg Documented by: Ondansetron HCl (Ondansetron 4 Mg/2 Ml Sdv) 4 mg IVPUSH ONETIME ONE Stop: 05/30/21 18:36 Last Admin: 05/30/21 18:57 Dose: 4 mg Documented by:
--- NOTE | 2021-05-31 11:56 | PCM.CONS ---
H&P History of Present Illness - General Date of Service: 05/31/21 Admit Problem/Dx: Admission Diagnosis/Problem Admission Diagnosis/Problem Acute cholecystitis Source of Information: Patient History Limitations: Reports: No Limitations - History of Present Illness Initial Comments - Free Text/Narative: Patient is a 65 year old male with a history of DM II, HTN, HLD who presented to the ER with upper abdominal pain and early satiety. He ate at [employer] 2 days ago and afterwards developed upper abdominal pain. He had nausea and early satiety. No vomiting. He drove from [place] and had to make multiple stops because of the discomfort. He came to the ER. He was mildly tachycardic. His WBC was elevated at 23K with a left shift. His glucose was elevated. His bilirubin was 1.4. LFTs were normal. CT scan of the abdomen and pelvis showed a distended thickened edeamtous gallbladder with sludge consistent with acute cholecystitis. A RUQ US was performed which was read as normal other than a positive hart's sign. He was admitted to the hospitalists service. He was given IVF, IV zosyn and kept NPO after midnight. He feels slightly better this am. His wbc is down to 19K. His AST and ALT are mildly elevated. His bilirubin is the same. Vitals are stable. epigastric Pain Score (Numeric/FACES): 7 - Related Data Allergies/Adverse Reactions: Allergies Allergy/AdvReac Type Severity Reaction Status Date / Time No Known Allergies Allergy Verified 05/31/21 01:49 Home Medications: Home Meds Aspirin [Ecotrin EC] 81 mg PO DAILY 05/31/21 [History] Escitalopram [Lexapro] 20 mg PO DAILY 05/31/21 [History] Meloxicam PO DAILY 05/31/21 [History] Naproxen Sodium [Naproxen Sodium ER] 500 mg PO BID 05/31/21 [History] atorvaSTATin [Lipitor] 40 mg PO DAILY 05/31/21 [History] metFORMIN [Glucophage XR] 500 mg PO DAILY 05/31/21 [History] Past Medical History HEENT History: Reports: Impaired Vision Cardiovascular History: Reports: High Cholesterol, Hypertension Respiratory History: Reports: None Gastrointestinal History: Reports: Colon Polyp, Diverticulosis, Fatty Liver, GERD Genitourinary History: Reports: None Musculoskeletal History: Reports: None Neurological History: Reports: None Psychiatric History: Reports: None Endocrine/Metabolic History: Reports: Diabetes, Type II Hematologic History: Reports: None Immunologic History: Reports: None Oncologic (Cancer) History: Reports: None Dermatologic History: Reports: None - Infectious Disease History Infectious Disease History: Reports: None - Past Surgical History Head Surgeries/Procedures: Reports: None HEENT Surgical History: Reports: None Cardiovascular Surgical History: Reports: None Respiratory Surgical History: Reports: None GI Surgical History: Reports: None, Colonoscopy (with polypectomy) Male Surgical History: Reports: None Endocrine Surgical History: Reports: None Neurological Surgical History: Reports: None Musculoskeletal Surgical History: Reports: None Oncologic Surgical History: Reports: None Dermatological Surgical History: Reports: None Social & Family History - Family History Family Medical History: No Pertinent Family History - Tobacco Use Tobacco Use Status *Q: Former Tobacco User Years of Tobacco use: 20 Used Tobacco, but Quit: Yes Month/Year Tobacco Last Used: 8 years ago Second Hand Smoke Exposure: No - Caffeine Use Caffeine Use: Reports: Soda - Recreational Drug Use Recreational Drug Use: No H&P Review of Systems - Review of Systems: Review Of Systems: Comprehensive ROS is negative, except as noted in HPI. Exam - Exam Exam: See Below - Vital Signs Vital Signs: Last Vital Signs Temp 37.7 C 05/31/21 04:00 Pulse 89 05/31/21 04:00 Resp 18 05/31/21 04:00 BP 127/72 05/31/21 04:00 Pulse Ox 91 L 05/31/21 04:00 Weight: 102.603 kg - Exam Quality Assessment: Supplemental Oxygen General: Alert, Oriented HEENT: Conjunctiva Clear, Mucosa Moist & [place], Posterior Pharynx Clear Neck: Supple, Trachea Midline Lungs: Clear to Auscultation, Normal Respiratory Effort Cardiovascular: Regular Rate, Regular Rhythm GI/Abdominal Exam: Soft, Distended, Tender (RUQ) Back Exam: Normal Inspection, Full Range of Motion Extremities: Normal Inspection, Normal Range of Motion Skin: Warm, Dry, Intact Neuro Extensive - Mental Status: Alert, Oriented x3 - Patient Data Lab Results Last 24 hrs: Laboratory Results - last 24 hr 05/30/21 05/30/21 05/30/21 Range/Units 18:30 18:30 18:30 WBC 23.32 H (4.0-11.0) K/uL RBC 5.33 (4.50-5.90) M/uL Hgb 15.5 (13.0-17.0) g/dL Hct 45.3 (38.0-50.0) % MCV 85.0 (80.0-98.0) fL MCH 29.1 (27.0-32.0) pg MCHC 34.2 (31.0-37.0) g/dL RDW Std Deviation 46.9 (28.0-62.0) fl RDW Coeff of [place] 15 (11.0-15.0) % Plt Count 315 (150-400) K/uL MPV 10.30 (7.40-12.00) fL Neut % (Auto) 85.9 H (48.0-80.0) % Lymph % (Auto) 4.9 L (16.0-40.0) % [place] % (Auto) 8.9 (0.0-15.0) % Eos % (Auto) 0.2 (0.0-7.0) % Baso % (Auto) 0.1 (0.0-1.5) % Neut # (Auto) 20.0 H (1.4-5.7) K/uL Lymph # (Auto) 1.2 (0.6-2.4) K/uL [place] # (Auto) 2.1 H (0.0-0.8) K/uL Eos # (Auto) 0.0 (0.0-0.7) K/uL Baso # (Auto) 0.0 (0.0-0.1) K/uL Nucleated RBC % 0.0 /100WBC Nucleated RBCs # 0 K/uL Sodium 137 (136-148) mmol/L Potassium 3.6 (3.5-5.1) mmol/L Chloride 102 (98-107) mmol/L Carbon Dioxide 23.6 (21.0-32.0) mmol/L BUN 15 (7.0-18.0) mg/dL Creatinine 1.2 (0.8-1.3) mg/dL Est Cr Clr Drug Dosing 64.49 mL/min Estimated GFR (MDRD) > 60.0 ml/min Glucose 158 H (74-106) mg/dL POC Glucose (70-99) mg/dL Hemoglobin A1c (4.5 - 6.2) % Lactic Acid (0.4-2.0) mmol/L Calcium 8.9 (8.5-10.1) mg/dL Magnesium 1.9 (1.8-2.4) mg/dL Total Bilirubin 1.4 H (0.2-1.0) mg/dL AST 15 (15-37) IU/L ALT 29 (14-63) IU/L Alkaline Phosphatase 121 H (46-116) U/L Troponin I < 0.050 (0.000-0.056) ng/mL Total Protein 7.7 (6.4-8.2) g/dL Albumin 3.7 (3.4-5.0) g/dL Globulin 4.0 (2.6-4.0) g/dL Albumin/Globulin Ratio 0.9 (0.9-1.6) Lipase 76 (73-393) U/L Urine Color Urine Appearance Urine pH (5.0-8.0) Ur Specific [place] (1.001-1.035) Urine Protein (NEGATIVE) mg/dL Urine Glucose (UA) (NEGATIVE) mg/dL Urine Ketones (NEGATIVE) mg/dL Urine Occult Blood (NEGATIVE) Urine Nitrite (NEGATIVE) Urine Bilirubin (NEGATIVE) Urine Urobilinogen (<2.0) EU/dL Ur Leukocyte Esterase (NEGATIVE) Urine RBC (0-2/HPF) Urine WBC (0-5/HPF) Ur Epithelial Cells (NONE-FEW) Urine Bacteria (NEGATIVE) 05/30/21 05/30/21 05/31/21 Range/Units 18:30 18:43 00:41 WBC (4.0-11.0) K/uL RBC (4.50-5.90) M/uL Hgb (13.0-17.0) g/dL Hct (38.0-50.0) % MCV (80.0-98.0) fL MCH (27.0-32.0) pg MCHC (31.0-37.0) g/dL RDW Std Deviation (28.0-62.0) fl RDW Coeff of [place] (11.0-15.0) % Plt Count (150-400) K/uL MPV (7.40-12.00) fL Neut % (Auto) (48.0-80.0) % Lymph % (Auto) (16.0-40.0) % [place] % (Auto) (0.0-15.0) % Eos % (Auto) (0.0-7.0) % Baso % (Auto) (0.0-1.5) % Neut # (Auto) (1.4-5.7) K/uL Lymph # (Auto) (0.6-2.4) K/uL [place] # (Auto) (0.0-0.8) K/uL Eos # (Auto) (0.0-0.7) K/uL Baso # (Auto) (0.0-0.1) K/uL Nucleated RBC % /100WBC Nucleated RBCs # K/uL Sodium (136-148) mmol/L Potassium (3.5-5.1) mmol/L Chloride (98-107) mmol/L Carbon Dioxide (21.0-32.0) mmol/L BUN (7.0-18.0) mg/dL Creatinine (0.8-1.3) mg/dL Est Cr Clr Drug Dosing mL/min Estimated GFR (MDRD) ml/min Glucose (74-106) mg/dL POC Glucose 113 H (70-99) mg/dL Hemoglobin A1c 6.2 (4.5 - 6.2) % Lactic Acid 1.3 (0.4-2.0) mmol/L Calcium (8.5-10.1) mg/dL Magnesium (1.8-2.4) mg/dL Total Bilirubin (0.2-1.0) mg/dL AST (15-37) IU/L ALT (14-63) IU/L Alkaline Phosphatase (46-116) U/L Troponin I (0.000-0.056) ng/mL Total Protein (6.4-8.2) g/dL Albumin (3.4-5.0) g/dL Globulin (2.6-4.0) g/dL Albumin/Globulin Ratio (0.9-1.6) Lipase (73-393) U/L Urine Color Urine Appearance Urine pH (5.0-8.0) Ur Specific [place] (1.001-1.035) Urine Protein (NEGATIVE) mg/dL Urine Glucose (UA) (NEGATIVE) mg/dL Urine Ketones (NEGATIVE) mg/dL Urine Occult Blood (NEGATIVE) Urine Nitrite (NEGATIVE) Urine Bilirubin (NEGATIVE) Urine Urobilinogen (<2.0) EU/dL Ur Leukocyte Esterase (NEGATIVE) Urine RBC (0-2/HPF) Urine WBC (0-5/HPF) Ur Epithelial Cells (NONE-FEW) Urine Bacteria (NEGATIVE) 05/31/21 05/31/21 05/31/21 Range/Units 01:15 05:37 05:37 WBC 19.03 H (4.0-11.0) K/uL RBC 4.57 (4.50-5.90) M/uL Hgb 13.2 (13.0-17.0) g/dL Hct 39.0 (38.0-50.0) % MCV 85.3 (80.0-98.0) fL MCH 28.9 (27.0-32.0) pg MCHC 33.8 (31.0-37.0) g/dL RDW Std Deviation 47.5 (28.0-62.0) fl RDW Coeff of [place] 15 (11.0-15.0) % Plt Count 228 (150-400) K/uL MPV 9.90 (7.40-12.00) fL Neut % (Auto) 87.3 H (48.0-80.0) % Lymph % (Auto) 4.9 L (16.0-40.0) % [place] % (Auto) 7.5 (0.0-15.0) % Eos % (Auto) 0.2 (0.0-7.0) % Baso % (Auto) 0.1 (0.0-1.5) % Neut # (Auto) 16.6 H (1.4-5.7) K/uL Lymph # (Auto) 0.9 (0.6-2.4) K/uL [place] # (Auto) 1.4 H (0.0-0.8) K/uL Eos # (Auto) 0.0 (0.0-0.7) K/uL Baso # (Auto) 0.0 (0.0-0.1) K/uL Nucleated RBC % 0.0 /100WBC Nucleated RBCs # 0 K/uL Sodium 138 (136-148) mmol/L Potassium 3.5 (3.5-5.1) mmol/L Chloride 107 (98-107) mmol/L Carbon Dioxide 21.3 (21.0-32.0) mmol/L BUN 11 (7.0-18.0) mg/dL Creatinine 1.1 (0.8-1.3) mg/dL Est Cr Clr Drug Dosing 70.36 mL/min Estimated GFR (MDRD) > 60.0 ml/min Glucose 111 H (74-106) mg/dL POC Glucose (70-99) mg/dL Hemoglobin A1c (4.5 - 6.2) % Lactic Acid (0.4-2.0) mmol/L Calcium 7.5 L (8.5-10.1) mg/dL Magnesium (1.8-2.4) mg/dL Total Bilirubin 1.4 H (0.2-1.0) mg/dL AST 15 (15-37) IU/L ALT 23 (14-63) IU/L Alkaline Phosphatase 102 (46-116) U/L Troponin I (0.000-0.056) ng/mL Total Protein 6.1 L (6.4-8.2) g/dL Albumin 2.8 L (3.4-5.0) g/dL Globulin 3.3 (2.6-4.0) g/dL Albumin/Globulin Ratio 0.9 (0.9-1.6) Lipase (73-393) U/L Urine Color ORANGE Urine Appearance CLEAR Urine pH 5.5 (5.0-8.0) Ur Specific [place] 1.020 (1.001-1.035) Urine Protein TRACE H (NEGATIVE) mg/dL Urine Glucose (UA) NEGATIVE (NEGATIVE) mg/dL Urine Ketones NEGATIVE (NEGATIVE) mg/dL Urine Occult Blood NEGATIVE (NEGATIVE) Urine Nitrite NEGATIVE (NEGATIVE) Urine Bilirubin NEGATIVE (NEGATIVE) Urine Urobilinogen 1.0 (<2.0) EU/dL Ur Leukocyte Esterase NEGATIVE (NEGATIVE) Urine RBC 0-1 (0-2/HPF) Urine WBC 0-1 (0-5/HPF) Ur Epithelial Cells RARE (NONE-FEW) Urine Bacteria RARE (NEGATIVE) 05/31/21 Range/Units 06:23 WBC (4.0-11.0) K/uL RBC (4.50-5.90) M/uL Hgb (13.0-17.0) g/dL Hct (38.0-50.0) % MCV (80.0-98.0) fL MCH (27.0-32.0) pg MCHC (31.0-37.0) g/dL RDW Std Deviation (28.0-62.0) fl RDW Coeff of [place] (11.0-15.0) % Plt Count (150-400) K/uL MPV (7.40-12.00) fL Neut % (Auto) (48.0-80.0) % Lymph % (Auto) (16.0-40.0) % [place] % (Auto) (0.0-15.0) % Eos % (Auto) (0.0-7.0) % Baso % (Auto) (0.0-1.5) % Neut # (Auto) (1.4-5.7) K/uL Lymph # (Auto) (0.6-2.4) K/uL [place] # (Auto) (0.0-0.8) K/uL Eos # (Auto) (0.0-0.7) K/uL Baso # (Auto) (0.0-0.1) K/uL Nucleated RBC % /100WBC Nucleated RBCs # K/uL Sodium (136-148) mmol/L Potassium (3.5-5.1) mmol/L Chloride (98-107) mmol/L Carbon Dioxide (21.0-32.0) mmol/L BUN (7.0-18.0) mg/dL Creatinine (0.8-1.3) mg/dL Est Cr Clr Drug Dosing mL/min Estimated GFR (MDRD) ml/min Glucose (74-106) mg/dL POC Glucose 110 H (70-99) mg/dL Hemoglobin A1c (4.5 - 6.2) % Lactic Acid (0.4-2.0) mmol/L Calcium (8.5-10.1) mg/dL Magnesium (1.8-2.4) mg/dL Total Bilirubin (0.2-1.0) mg/dL AST (15-37) IU/L ALT (14-63) IU/L Alkaline Phosphatase (46-116) U/L Troponin I (0.000-0.056) ng/mL Total Protein (6.4-8.2) g/dL Albumin (3.4-5.0) g/dL Globulin (2.6-4.0) g/dL Albumin/Globulin Ratio (0.9-1.6) Lipase (73-393) U/L Urine Color Urine Appearance Urine pH (5.0-8.0) Ur Specific [place] (1.001-1.035) Urine Protein (NEGATIVE) mg/dL Urine Glucose (UA) (NEGATIVE) mg/dL Urine Ketones (NEGATIVE) mg/dL Urine Occult Blood (NEGATIVE) Urine Nitrite (NEGATIVE) Urine Bilirubin (NEGATIVE) Urine Urobilinogen (<2.0) EU/dL Ur Leukocyte Esterase (NEGATIVE) Urine RBC (0-2/HPF) Urine WBC (0-5/HPF) Ur Epithelial Cells (NONE-FEW) Urine Bacteria (NEGATIVE) Result Diagrams: 05/31/21 05:37 05/31/21 05:37 Sepsis Event Note - Evaluation Sepsis Screening Result: No Definite Risk - Focused Exam Vital Signs: Vital Signs Temp Pulse Resp BP Pulse Ox Pulse Ox 05/31/21 04:00 37.7 C 89 18 127/72 91 L 05/31/21 01:00 98 05/31/21 00:40 36.6 C 82 18 151/90 H 97 05/31/21 00:17 84 17 128/71 96 Consult PN Assessment/Plan (1) Acute cholecystitis SNOMED Code(s): 57347324 Code(s): K81.0 - ACUTE CHOLECYSTITIS Current Visit: Yes (2) Sepsis SNOMED Code(s): 71785456 Code(s): A41.9 - SEPSIS, UNSPECIFIED ORGANISM Current Visit: Yes Qualifiers: Sepsis type: sepsis due to unspecified organism Sepsis acute organ dysfunction status: without acute organ dysfunction Qualified Code(s): A41.9 - Sepsis, unspecified organism Problem List Initiated/Reviewed/Updated: Yes Plan: I explained to the patient that he likely has gangrenous cholecystitis given his leukocytosis and history of diabetes. He will need to undergo a cholecystec norma. I will attempt this laparoscopically but will convert to open should I be unable to perform this safely. If his gallbladder is necrotic, there is a possibility I may have to perform a partial cholecystectomy and we discussed the possibility of developing a bile leak with necrotic tissue. We discussed the expected perioperative course and the risks including bleeding infection or damage to surrounding structures. He verbalized understanding and wishes to proceed.
[2021-05-31] MEDS ORDERED: Bupivacaine 0.5% 30 ML SDV ONE ×2 (12:02→14:05)
[2021-05-31] MEDS ORDERED: Octyl 2-Cyanoacrylate 1 Tube ONE (12:03)
[2021-05-31] MEDS ORDERED: Rocuronium Bromide 50 MG/5 ML Syringe ONE ×2 (12:05→13:50)
[2021-05-31] MEDS ORDERED: Propofol 200 MG/20 ML SDV ONE (12:05)
[2021-05-31] MEDS ORDERED: Midazolam 1 MG/ML 2 ML SDV ONE (12:05)
[2021-05-31] MEDS ORDERED: fentaNYL 100 MCG/2 ML SDV ONE ×2 (12:05→13:25)
[2021-05-31] MEDS ORDERED: Succinylcholine/Sod PF 100 MG/5 ML SYRINGE IV ONE (12:05)
[2021-05-31] MEDS ORDERED: Lidocaine 2% 5 ML SDV ONE (12:05)
[2021-05-31] MEDS ORDERED: Ondansetron 4 MG/2 ML SDV ONE (12:06)
[2021-05-31] MEDS ORDERED: Dexamethasone 4 MG/ML 5 ML MDV ONE (12:06)
[2021-05-31] MEDS ORDERED: ceFAZolin 1 GM Vial ONE (13:21)
[2021-05-31] MEDS ORDERED: Sugammadex Sodium 200 MG/2 ML VIAL ONE (14:34)
[2021-05-31] MEDS ORDERED: Ketorolac 30 MG/ML SDV ONE (14:35)
--- NOTE | 2021-05-31 14:55 | PCM.OPNOTE ---
- General Post-Op/Procedure Note Date of Surgery/Procedure: 05/31/21 Operative Procedure(s): Laparoscopic converted to open cholecystectomy Findings: Severe inflammation of the gallbladder. Gallbladder encased in thickened and inflamed omentum. Lumen containing purulent material Pre Op Diagnosis: Acute cholecystitis Post-Op Diagnosis: Same Anesthesia Technique: General ET Tube Primary Surgeon: Cee Quinteros Secondary Surgeon: Robert Stauffer Pathology: gallbladder Fluid Replacement, Intraop: 1,100 Output, Urine Amount: 90 EBL in mLs: 500 Surgical Drain/Tube Type: Hima Drain Condition: Stable Free Text/Narrative:: Intake & Output 05/30/21 05/31/21 05/31/21 22:59 06:59 14:59 Intake Total 0 Output Total 520 Balance -520
--- NOTE | 2021-05-31 14:59 | PCM.POSTAN ---
POST ANESTHESIA ASSESSMENT - MENTAL STATUS Mental Status: Somnolent - VITAL SIGNS Vital Signs: Last Vital Signs Temp 97.0 F 05/31/21 12:00 Pulse 81 05/31/21 12:00 Resp 16 05/31/21 12:00 BP 149/86 H 05/31/21 12:00 Pulse Ox 94 L 05/31/21 12:00 - RESPIRATORY Respiratory Status: Respiratory Rate WNL, Airway Patent, O2 Saturation Stable - CARDIOVASCULAR CV Status: Pulse Rate WNL, Blood Pressure Stable - GASTROINTESTINAL GI Status: No Symptoms - POST OP HYDRATION Hydration Status: Adequate & Stable
[2021-05-31 15:10] LABS: BLOOD UREA NITROGEN,BUN 11 mg/dL (7.0-18.0); CHLORIDE,CL 108 mmol/L (98-107); GLUCOSE RANDOM 106 mg/dL (74-106); POTASSIUM,K 4.1 mmol/L (3.5-5.1); SODIUM,NA 138 mmol/L (136-148)
--- NOTE | 2021-05-31 15:11 | PCM48HPAN ---
Post Anesthesia Note - EVALUATION WITHIN 48HRS OF ANESTHETIC Vital Signs in Normal Range: Yes Patient Participated in Evaluation: Yes Respiratory Function Stable: Yes Airway Patent: Yes Cardiovascular Function Stable: Yes Hydration Status Stable: Yes Pain Control Satisfactory: Yes Nausea and Vomiting Control Satisfactory: Yes Mental Status Recovered: Yes Vital Signs: Last Vital Signs Temp 97.0 F 05/31/21 12:00 Pulse 81 05/31/21 12:00 Resp 16 05/31/21 12:00 BP 149/86 H 05/31/21 12:00 Pulse Ox 94 L 05/31/21 12:00
--- NOTE | 2021-05-31 16:00 | PCM.PN ---
- General Info Date of Service: 05/31/21 Admission Dx/Problem (Free Text): Admission Diagnosis/Problem Admission Diagnosis/Problem Acute cholecystitis Subjective Update: 65-year-old male with a history of diabetes mellitus and hypertension presents to the ED complaining of 3 days of right upper quadrant pain. Patient denies history of cholelithiasis or abdominal pain after greasy meals. 3 days ago he had a hamburger which triggered his right upper quadrant pain. He was admitted for acute cholecystitis. Patient on Zosyn. Patient has been n.p.o. Normal saline at 125 mL/h. Patient's pain is well controlled with Dilaudid 0.5 mg every 2 hours as needed. Blood cultures are pending. Surgery has been consulted and will be taking the patient for a cholecystectomy later today. Patient reports pain is well controlled. Home medications include Metformin, lisinopril, and baby aspirin. Patient has a smoking history of a pack per day for 25 years. Patient stopped smoking 5 years ago. Patient denies alcohol use. Patient denies drug use. Patient is . - Review of Systems General: Denies: Fever, Chills HEENT: Reports: No Symptoms Pulmonary: Denies: Shortness of Breath, Pleuritic Chest Pain, Cough, Wheezing Cardiovascular: Denies: Chest Pain, Palpitations, Edema Gastrointestinal: Reports: Abdominal Pain. Denies: Diarrhea, Difficulty Swallowing, Melena, Nausea, Vomiting Genitourinary: Denies: Dysuria Musculoskeletal: Reports: No Symptoms Skin: Reports: No Symptoms. Denies: Jaundice Neurological: Reports: No Symptoms - Patient Data Vitals - Most Recent: Last Vital Signs Temp 99.0 F 05/31/21 14:54 Pulse 94 05/31/21 15:35 Resp 18 05/31/21 15:35 BP 122/59 L 05/31/21 15:35 Pulse Ox 96 05/31/21 15:35 Weight - Most Recent: 226 lb 3.2 oz I&O - Last 24 Hours: Intake & Output 05/31/21 05/31/21 05/31/21 06:59 14:59 22:59 Intake Total 0 1100 Output Total 520 180 Balance -520 920 Lab Results Last 24 Hours: Laboratory Results - last 24 hr 05/30/21 05/30/21 05/30/21 Range/Units 18:30 18:30 18:30 WBC 23.32 H (4.0-11.0) K/uL RBC 5.33 (4.50-5.90) M/uL Hgb 15.5 (13.0-17.0) g/dL Hct 45.3 (38.0-50.0) % MCV 85.0 (80.0-98.0) fL MCH 29.1 (27.0-32.0) pg MCHC 34.2 (31.0-37.0) g/dL RDW Std Deviation 46.9 (28.0-62.0) fl RDW Coeff of Ortega 15 (11.0-15.0) % Plt Count 315 (150-400) K/uL MPV 10.30 (7.40-12.00) fL Neut % (Auto) 85.9 H (48.0-80.0) % Lymph % (Auto) 4.9 L (16.0-40.0) % Mineral % (Auto) 8.9 (0.0-15.0) % Eos % (Auto) 0.2 (0.0-7.0) % Baso % (Auto) 0.1 (0.0-1.5) % Neut # (Auto) 20.0 H (1.4-5.7) K/uL Lymph # (Auto) 1.2 (0.6-2.4) K/uL Mineral # (Auto) 2.1 H (0.0-0.8) K/uL Eos # (Auto) 0.0 (0.0-0.7) K/uL Baso # (Auto) 0.0 (0.0-0.1) K/uL Nucleated RBC % 0.0 /100WBC Nucleated RBCs # 0 K/uL Sodium 137 (136-148) mmol/L Potassium 3.6 (3.5-5.1) mmol/L Chloride 102 (98-107) mmol/L Carbon Dioxide 23.6 (21.0-32.0) mmol/L BUN 15 (7.0-18.0) mg/dL Creatinine 1.2 (0.8-1.3) mg/dL Est Cr Clr Drug Dosing 64.49 mL/min Estimated GFR (MDRD) > 60.0 ml/min Glucose 158 H (74-106) mg/dL POC Glucose (70-99) mg/dL Hemoglobin A1c (4.5 - 6.2) % Lactic Acid (0.4-2.0) mmol/L Calcium 8.9 (8.5-10.1) mg/dL Magnesium 1.9 (1.8-2.4) mg/dL Total Bilirubin 1.4 H (0.2-1.0) mg/dL AST 15 (15-37) IU/L ALT 29 (14-63) IU/L Alkaline Phosphatase 121 H (46-116) U/L Troponin I < 0.050 (0.000-0.056) ng/mL Total Protein 7.7 (6.4-8.2) g/dL Albumin 3.7 (3.4-5.0) g/dL Globulin 4.0 (2.6-4.0) g/dL Albumin/Globulin Ratio 0.9 (0.9-1.6) Lipase 76 (73-393) U/L Urine Color Urine Appearance Urine pH (5.0-8.0) Ur Specific [place] (1.001-1.035) Urine Protein (NEGATIVE) mg/dL Urine Glucose (UA) (NEGATIVE) mg/dL Urine Ketones (NEGATIVE) mg/dL Urine Occult Blood (NEGATIVE) Urine Nitrite (NEGATIVE) Urine Bilirubin (NEGATIVE) Urine Urobilinogen (<2.0) EU/dL Ur Leukocyte Esterase (NEGATIVE) Urine RBC (0-2/HPF) Urine WBC (0-5/HPF) Ur Epithelial Cells (NONE-FEW) Urine Bacteria (NEGATIVE) Blood Type Antibody Screen 05/30/21 05/30/21 05/31/21 Range/Units 18:30 18:43 00:41 WBC (4.0-11.0) K/uL RBC (4.50-5.90) M/uL Hgb (13.0-17.0) g/dL Hct (38.0-50.0) % MCV (80.0-98.0) fL MCH (27.0-32.0) pg MCHC (31.0-37.0) g/dL RDW Std Deviation (28.0-62.0) fl RDW Coeff of Ortega (11.0-15.0) % Plt Count (150-400) K/uL MPV (7.40-12.00) fL Neut % (Auto) (48.0-80.0) % Lymph % (Auto) (16.0-40.0) % Mineral % (Auto) (0.0-15.0) % Eos % (Auto) (0.0-7.0) % Baso % (Auto) (0.0-1.5) % Neut # (Auto) (1.4-5.7) K/uL Lymph # (Auto) (0.6-2.4) K/uL Mineral # (Auto) (0.0-0.8) K/uL Eos # (Auto) (0.0-0.7) K/uL Baso # (Auto) (0.0-0.1) K/uL Nucleated RBC % /100WBC Nucleated RBCs # K/uL Sodium (136-148) mmol/L Potassium (3.5-5.1) mmol/L Chloride (98-107) mmol/L Carbon Dioxide (21.0-32.0) mmol/L BUN (7.0-18.0) mg/dL Creatinine (0.8-1.3) mg/dL Est Cr Clr Drug Dosing mL/min Estimated GFR (MDRD) ml/min Glucose (74-106) mg/dL POC Glucose 113 H (70-99) mg/dL Hemoglobin A1c 6.2 (4.5 - 6.2) % Lactic Acid 1.3 (0.4-2.0) mmol/L Calcium (8.5-10.1) mg/dL Magnesium (1.8-2.4) mg/dL Total Bilirubin (0.2-1.0) mg/dL AST (15-37) IU/L ALT (14-63) IU/L Alkaline Phosphatase (46-116) U/L Troponin I (0.000-0.056) ng/mL Total Protein (6.4-8.2) g/dL Albumin (3.4-5.0) g/dL Globulin (2.6-4.0) g/dL Albumin/Globulin Ratio (0.9-1.6) Lipase (73-393) U/L Urine Color Urine Appearance Urine pH (5.0-8.0) Ur Specific [place] (1.001-1.035) Urine Protein (NEGATIVE) mg/dL Urine Glucose (UA) (NEGATIVE) mg/dL Urine Ketones (NEGATIVE) mg/dL Urine Occult Blood (NEGATIVE) Urine Nitrite (NEGATIVE) Urine Bilirubin (NEGATIVE) Urine Urobilinogen (<2.0) EU/dL Ur Leukocyte Esterase (NEGATIVE) Urine RBC (0-2/HPF) Urine WBC (0-5/HPF) Ur Epithelial Cells (NONE-FEW) Urine Bacteria (NEGATIVE) Blood Type Antibody Screen 05/31/21 05/31/21 05/31/21 Range/Units 01:15 05:37 05:37 WBC 19.03 H (4.0-11.0) K/uL RBC 4.57 (4.50-5.90) M/uL Hgb 13.2 (13.0-17.0) g/dL Hct 39.0 (38.0-50.0) % MCV 85.3 (80.0-98.0) fL MCH 28.9 (27.0-32.0) pg MCHC 33.8 (31.0-37.0) g/dL RDW Std Deviation 47.5 (28.0-62.0) fl RDW Coeff of Ortega 15 (11.0-15.0) % Plt Count 228 (150-400) K/uL MPV 9.90 (7.40-12.00) fL Neut % (Auto) 87.3 H (48.0-80.0) % Lymph % (Auto) 4.9 L (16.0-40.0) % Mineral % (Auto) 7.5 (0.0-15.0) % Eos % (Auto) 0.2 (0.0-7.0) % Baso % (Auto) 0.1 (0.0-1.5) % Neut # (Auto) 16.6 H (1.4-5.7) K/uL Lymph # (Auto) 0.9 (0.6-2.4) K/uL Mineral # (Auto) 1.4 H (0.0-0.8) K/uL Eos # (Auto) 0.0 (0.0-0.7) K/uL Baso # (Auto) 0.0 (0.0-0.1) K/uL Nucleated RBC % 0.0 /100WBC Nucleated RBCs # 0 K/uL Sodium 138 (136-148) mmol/L Potassium 3.5 (3.5-5.1) mmol/L Chloride 107 (98-107) mmol/L Carbon Dioxide 21.3 (21.0-32.0) mmol/L BUN 11 (7.0-18.0) mg/dL Creatinine 1.1 (0.8-1.3) mg/dL Est Cr Clr Drug Dosing 70.36 mL/min Estimated GFR (MDRD) > 60.0 ml/min Glucose 111 H (74-106) mg/dL POC Glucose (70-99) mg/dL Hemoglobin A1c (4.5 - 6.2) % Lactic Acid (0.4-2.0) mmol/L Calcium 7.5 L (8.5-10.1) mg/dL Magnesium (1.8-2.4) mg/dL Total Bilirubin 1.4 H (0.2-1.0) mg/dL AST 15 (15-37) IU/L ALT 23 (14-63) IU/L Alkaline Phosphatase 102 (46-116) U/L Troponin I (0.000-0.056) ng/mL Total Protein 6.1 L (6.4-8.2) g/dL Albumin 2.8 L (3.4-5.0) g/dL Globulin 3.3 (2.6-4.0) g/dL Albumin/Globulin Ratio 0.9 (0.9-1.6) Lipase (73-393) U/L Urine Color ORANGE Urine Appearance CLEAR Urine pH 5.5 (5.0-8.0) Ur Specific [place] 1.020 (1.001-1.035) Urine Protein TRACE H (NEGATIVE) mg/dL Urine Glucose (UA) NEGATIVE (NEGATIVE) mg/dL Urine Ketones NEGATIVE (NEGATIVE) mg/dL Urine Occult Blood NEGATIVE (NEGATIVE) Urine Nitrite NEGATIVE (NEGATIVE) Urine Bilirubin NEGATIVE (NEGATIVE) Urine Urobilinogen 1.0 (<2.0) EU/dL Ur Leukocyte Esterase NEGATIVE (NEGATIVE) Urine RBC 0-1 (0-2/HPF) Urine WBC 0-1 (0-5/HPF) Ur Epithelial Cells RARE (NONE-FEW) Urine Bacteria RARE (NEGATIVE) Blood Type Antibody Screen 05/31/21 05/31/21 05/31/21 Range/Units 06:23 13:44 13:44 WBC 19.59 H (4.0-11.0) K/uL RBC 4.39 L (4.50-5.90) M/uL Hgb 12.9 L (13.0-17.0) g/dL Hct 38.0 (38.0-50.0) % MCV 86.6 (80.0-98.0) fL MCH 29.4 (27.0-32.0) pg MCHC 33.9 (31.0-37.0) g/dL RDW Std Deviation 49.2 (28.0-62.0) fl RDW Coeff of Ortega 16 H (11.0-15.0) % Plt Count 223 (150-400) K/uL MPV 9.60 (7.40-12.00) fL Neut % (Auto) (48.0-80.0) % Lymph % (Auto) (16.0-40.0) % Mineral % (Auto) (0.0-15.0) % Eos % (Auto) (0.0-7.0) % Baso % (Auto) (0.0-1.5) % Neut # (Auto) (1.4-5.7) K/uL Lymph # (Auto) (0.6-2.4) K/uL Mineral # (Auto) (0.0-0.8) K/uL Eos # (Auto) (0.0-0.7) K/uL Baso # (Auto) (0.0-0.1) K/uL Nucleated RBC % 0.0 /100WBC Nucleated RBCs # 0 K/uL Sodium (136-148) mmol/L Potassium (3.5-5.1) mmol/L Chloride (98-107) mmol/L Carbon Dioxide (21.0-32.0) mmol/L BUN (7.0-18.0) mg/dL Creatinine (0.8-1.3) mg/dL Est Cr Clr Drug Dosing mL/min Estimated GFR (MDRD) ml/min Glucose (74-106) mg/dL POC Glucose 110 H (70-99) mg/dL Hemoglobin A1c (4.5 - 6.2) % Lactic Acid (0.4-2.0) mmol/L Calcium (8.5-10.1) mg/dL Magnesium (1.8-2.4) mg/dL Total Bilirubin (0.2-1.0) mg/dL AST (15-37) IU/L ALT (14-63) IU/L Alkaline Phosphatase (46-116) U/L Troponin I (0.000-0.056) ng/mL Total Protein (6.4-8.2) g/dL Albumin (3.4-5.0) g/dL Globulin (2.6-4.0) g/dL Albumin/Globulin Ratio (0.9-1.6) Lipase (73-393) U/L Urine Color Urine Appearance Urine pH (5.0-8.0) Ur Specific [place] (1.001-1.035) Urine Protein (NEGATIVE) mg/dL Urine Glucose (UA) (NEGATIVE) mg/dL Urine Ketones (NEGATIVE) mg/dL Urine Occult Blood (NEGATIVE) Urine Nitrite (NEGATIVE) Urine Bilirubin (NEGATIVE) Urine Urobilinogen (<2.0) EU/dL Ur Leukocyte Esterase (NEGATIVE) Urine RBC (0-2/HPF) Urine WBC (0-5/HPF) Ur Epithelial Cells (NONE-FEW) Urine Bacteria (NEGATIVE) Blood Type O POSITIVE Antibody Screen NEGATIVE 05/31/21 Range/Units 13:44 WBC (4.0-11.0) K/uL RBC (4.50-5.90) M/uL Hgb (13.0-17.0) g/dL Hct (38.0-50.0) % MCV (80.0-98.0) fL MCH (27.0-32.0) pg MCHC (31.0-37.0) g/dL RDW Std Deviation (28.0-62.0) fl RDW Coeff of Ortega (11.0-15.0) % Plt Count (150-400) K/uL MPV (7.40-12.00) fL Neut % (Auto) (48.0-80.0) % Lymph % (Auto) (16.0-40.0) % Mineral % (Auto) (0.0-15.0) % Eos % (Auto) (0.0-7.0) % Baso % (Auto) (0.0-1.5) % Neut # (Auto) (1.4-5.7) K/uL Lymph # (Auto) (0.6-2.4) K/uL Mineral # (Auto) (0.0-0.8) K/uL Eos # (Auto) (0.0-0.7) K/uL Baso # (Auto) (0.0-0.1) K/uL Nucleated RBC % /100WBC Nucleated RBCs # K/uL Sodium 138 (136-148) mmol/L Potassium 4.1 (3.5-5.1) mmol/L Chloride 108 H (98-107) mmol/L Carbon Dioxide 19.0 L (21.0-32.0) mmol/L BUN 11 (7.0-18.0) mg/dL Creatinine 0.9 (0.8-1.3) mg/dL Est Cr Clr Drug Dosing 85.99 mL/min Estimated GFR (MDRD) > 60.0 ml/min Glucose 106 (74-106) mg/dL POC Glucose (70-99) mg/dL Hemoglobin A1c (4.5 - 6.2) % Lactic Acid (0.4-2.0) mmol/L Calcium 7.2 L (8.5-10.1) mg/dL Magnesium (1.8-2.4) mg/dL Total Bilirubin (0.2-1.0) mg/dL AST (15-37) IU/L ALT (14-63) IU/L Alkaline Phosphatase (46-116) U/L Troponin I (0.000-0.056) ng/mL Total Protein (6.4-8.2) g/dL Albumin (3.4-5.0) g/dL Globulin (2.6-4.0) g/dL Albumin/Globulin Ratio (0.9-1.6) Lipase (73-393) U/L Urine Color Urine Appearance Urine pH (5.0-8.0) Ur Specific [place] (1.001-1.035) Urine Protein (NEGATIVE) mg/dL Urine Glucose (UA) (NEGATIVE) mg/dL Urine Ketones (NEGATIVE) mg/dL Urine Occult Blood (NEGATIVE) Urine Nitrite (NEGATIVE) Urine Bilirubin (NEGATIVE) Urine Urobilinogen (<2.0) EU/dL Ur Leukocyte Esterase (NEGATIVE) Urine RBC (0-2/HPF) Urine WBC (0-5/HPF) Ur Epithelial Cells (NONE-FEW) Urine Bacteria (NEGATIVE) Blood Type Antibody Screen Med Orders - Current: Current Medications Albuterol (Albuterol 0.083% 2.5 Mg/3 Ml Neb Soln) 2.5 mg NEB ONETIME PRN PRN Reason: Wheezing Cyclobenzaprine HCl (Cyclobenzaprine 5 Mg Tab) 5 mg PO TID [facility] Dextrose/Water (50% Dextrose In Water 50 Ml Syringe) 50 ml IVPUSH ASDIRECTED PRN PRN Reason: Hypoglycemia Droperidol (Droperidol 5 Mg/2 Ml Sdv) 0.625 mg IVPUSH ONETIME PRN PRN Reason: Nausea/Vomiting Fentanyl (Fentanyl 100 Mcg/2 Ml Sdv) 50 mcg IVPUSH Q5M PRN PRN Reason: Pain (mild 1-3) Glucagon (Glucagon,Human Recombinant 1 Mg Vial) 1 mg IM ASDIRECTED PRN PRN Reason: Hypoglycemia Hydromorphone HCl (Hydromorphone 2 Mg/Ml Syringe) 0.5 mg IVPUSH Q2H PRN PRN Reason: Pain (severe 7-10) Last Admin: 05/31/21 15:12 Dose: 0.5 mg Documented by: Hydromorphone HCl (Hydromorphone 2 Mg/Ml Syringe) 1 mg IVPUSH Q10M PRN PRN Reason: Pain (moderate 4-6) Last Admin: 05/31/21 15:20 Dose: 0.5 mg Documented by: Sodium Chloride (Normal Saline) 1,000 mls @ 125 mls/hr IV ASDIRECTED [facility] Last Admin: 05/31/21 09:50 Dose: 125 mls/hr Documented by: Piperacillin Sod/Tazobactam (Sod 3.375 gm/ Sodium Chloride) 100 mls @ 200 mls/hr IV Q6H [facility] Last Admin: 05/31/21 10:41 Dose: 200 mls/hr Documented by: Insulin Aspart (Insulin Aspart 100 Units/Ml 3 Ml Pen) 0 unit SUBCUT Q6H [facility]; Protocol Last Admin: 05/31/21 11:43 Dose: Not Given Documented by: Ketorolac Tromethamine (Ketorolac 15 Mg/Ml Sdv) 15 mg IVPUSH Q6H [facility] Stop: 06/01/21 15:01 Metoclopramide HCl (Metoclopramide 10 Mg/2 Ml Sdv) 10 mg IVPUSH ONETIME PRN PRN Reason: Nausea/Vomiting Morphine Sulfate (Morphine 2 Mg/Ml Syringe) 2 mg IVPUSH Q10M PRN PRN Reason: Pain (severe 7-10) Naloxone HCl (Naloxone 0.4 Mg/Ml Syringe) 0.1 mg IVPUSH ASDIRECTED PRN PRN Reason: Respiratory Depression Ondansetron HCl (Ondansetron 4 Mg/2 Ml Sdv) 4 mg IVPUSH Q4H PRN PRN Reason: Nausea Ondansetron HCl (Ondansetron 4 Mg/2 Ml Sdv) 4 mg IVPUSH ONETIME PRN PRN Reason: Nausea/Vomiting Oxycodone/Acetaminophen (Acetaminophen/Oxycodone 325-5 Mg Tab) 2 tab PO Q4H PRN PRN Reason: Pain (severe 7-10) Sodium Chloride (Sodium Chloride 0.9% 2.5 Ml Syringe) 2.5 ml FLUSH ASDIRECTED PRN PRN Reason: Keep Vein Open Last Admin: 05/30/21 18:29 Dose: 2.5 ml Documented by: Sodium Chloride (Sodium Chloride 0.9% 10 Ml Syringe) 10 ml FLUSH ASDIRECTED PRN PRN Reason: Keep Vein Open Last Admin: 05/30/21 18:29 Dose: 10 ml Documented by: Discontinued Medications Bupivacaine HCl (Bupivacaine 0.5% 30 Ml Sdv) Confirm Administered Dose 30 ml .ROUTE .STK-MED ONE Stop: 05/31/21 12:03 Bupivacaine HCl (Bupivacaine 0.5% 30 Ml Sdv) Confirm Administered Dose 120 ml .ROUTE .STK-MED ONE Stop: 05/31/21 14:06 Cefazolin Sodium (Cefazolin 1 Gm Vial) Confirm Administered Dose 1 gm .ROUTE .STK-MED ONE Stop: 05/31/21 13:22 Dexamethasone (Dexamethasone 4 Mg/Ml 5 Ml Mdv) Confirm Administered Dose 20 mg .ROUTE .STK-MED ONE Stop: 05/31/21 12:07 Fentanyl (Fentanyl 100 Mcg/2 Ml Sdv) Confirm Administered Dose 100 mcg .ROUTE .STK-MED ONE Stop: 05/31/21 12:06 Fentanyl (Fentanyl 100 Mcg/2 Ml Sdv) Confirm Administered Dose 100 mcg .ROUTE .STK-MED ONE Stop: 05/31/21 13:26 Hydromorphone HCl (Hydromorphone 2 Mg/Ml Syringe) 0.5 mg IVPUSH ONETIME ONE Stop: 05/30/21 18:36 Last Admin: 05/30/21 18:55 Dose: 0.5 mg Documented by: Sodium Chloride (Normal Saline) 1,000 mls @ 999 mls/hr IV STAT ONE Stop: 05/30/21 19:24 Last Infusion: 05/30/21 19:17 Dose: Infused Documented by: Sodium Chloride (Normal Saline) 1,000 mls @ 999 mls/hr IV STAT ONE Stop: 05/30/21 20:02 Last Admin: 05/30/21 19:18 Dose: 999 mls/hr Documented by: Piperacillin Sod/Tazobactam (Sod 3.375 gm/ Sodium Chloride) 50 mls @ 100 mls/hr IV ONETIME ONE Stop: 05/30/21 22:35 Last Admin: 05/30/21 22:49 Dose: 100 mls/hr Documented by: Sodium Chloride (Normal Saline) 1,000 mls @ 125 mls/hr IV STAT ONE Stop: 05/31/21 06:15 Last Admin: 05/30/21 22:51 Dose: 125 mls/hr Documented by: Piperacillin Sod/Tazobactam (Sod 3.375 gm/ Sodium Chloride) 50 mls @ 100 mls/hr IV Q6H [facility] Last Admin: 05/31/21 04:47 Dose: 100 mls/hr Documented by: Acetaminophen (Ofirmev 1000 Mg/100 Ml) Confirm Administered Dose 100 mls @ as directed .ROUTE .STK-MED ONE Stop: 05/31/21 12:53 Iopamidol (Iopamidol 755 Mg/Ml 100 Ml Bottle) 100 ml IVPUSH ONETIME ONE Stop: 05/30/21 20:52 Last Admin: 05/30/21 20:51 Dose: 100 ml Documented by: Ketorolac Tromethamine (Ketorolac 30 Mg/Ml Sdv) 30 mg IVPUSH ONETIME ONE Stop: 05/30/21 18:36 Last Admin: 05/30/21 18:56 Dose: 30 mg Documented by: Ketorolac Tromethamine (Ketorolac 30 Mg/Ml Sdv) Confirm Administered Dose 30 mg .ROUTE .STK-MED ONE Stop: 05/31/21 14:36 Lidocaine (Lidocaine 2% 5 Ml Sdv) Confirm Administered Dose 5 ml .ROUTE .STK-MED ONE Stop: 05/31/21 12:06 Midazolam HCl (Midazolam 1 Mg/Ml 2 Ml Sdv) Confirm Administered Dose 2 mg .ROUTE .STK-MED ONE Stop: 05/31/21 12:06 Octyl Cyanoacrylate (Octyl 2-Cyanoacrylate 1 Tube) Confirm Administered Dose 1 applic .ROUTE .K-MED ONE Stop: 05/31/21 12:04 Ondansetron HCl (Ondansetron 4 Mg/2 Ml Sdv) 4 mg IVPUSH ONETIME ONE Stop: 05/30/21 18:36 Last Admin: 05/30/21 18:57 Dose: 4 mg Documented by: Ondansetron HCl (Ondansetron 4 Mg/2 Ml Sdv) Confirm Administered Dose 4 mg .ROUTE .K-MED ONE Stop: 05/31/21 12:07 Propofol (Propofol 200 Mg/20 Ml Sdv) Confirm Administered Dose 200 mg .ROUTE .[facility]-MED ONE Stop: 05/31/21 12:06 Rocuronium Sultan (Rocuronium [place] 50 Mg/5 Ml Syringe) Confirm Administered Dose 50 mg .ROUTE .STK-MED ONE Stop: 05/31/21 12:06 Rocuronium Sultan (Rocuronium [place] 50 Mg/5 Ml Syringe) Confirm Administered Dose 50 mg .ROUTE .[facility]-MED ONE Stop: 05/31/21 13:51 Sugammadex Sodium (Sugammadex Sodium 200 Mg/2 Ml Vial) Confirm Administered Dose 200 mg .ROUTE .[facility]-MED ONE Stop: 05/31/21 14:35 - Exam General: Alert, Oriented, Cooperative, No Acute Distress HEENT: EOMI. No: Scleral Icterus Neck: Supple Lungs: Clear to Auscultation, Normal Respiratory Effort. No: Wheezing Cardiovascular: Regular Rate, Regular Rhythm GI/Abdominal Exam: Guarding, Tender. No: Distended, Rigid, Rebound Extremities: Normal Inspection, Normal Range of Motion Peripheral Pulses: 2+: Dorsalis Pedis (L), Dorsalis Pedis (R) Skin: Warm, Dry, Intact Psy/Mental Status: Alert, Normal Affect - Patient Data Lab Results Last 24 hrs: Laboratory Results - last 24 hr 05/30/21 05/30/21 05/30/21 Range/Units 18:30 18:30 18:30 WBC 23.32 H (4.0-11.0) K/uL RBC 5.33 (4.50-5.90) M/uL Hgb 15.5 (13.0-17.0) g/dL Hct 45.3 (38.0-50.0) % MCV 85.0 (80.0-98.0) fL MCH 29.1 (27.0-32.0) pg MCHC 34.2 (31.0-37.0) g/dL RDW Std Deviation 46.9 (28.0-62.0) fl RDW Coeff of Ortega 15 (11.0-15.0) % Plt Count 315 (150-400) K/uL MPV 10.30 (7.40-12.00) fL Neut % (Auto) 85.9 H (48.0-80.0) % Lymph % (Auto) 4.9 L (16.0-40.0) % Mineral % (Auto) 8.9 (0.0-15.0) % Eos % (Auto) 0.2 (0.0-7.0) % Baso % (Auto) 0.1 (0.0-1.5) % Neut # (Auto) 20.0 H (1.4-5.7) K/uL Lymph # (Auto) 1.2 (0.6-2.4) K/uL Mineral # (Auto) 2.1 H (0.0-0.8) K/uL Eos # (Auto) 0.0 (0.0-0.7) K/uL Baso # (Auto) 0.0 (0.0-0.1) K/uL Nucleated RBC % 0.0 /100WBC Nucleated RBCs # 0 K/uL Sodium 137 (136-148) mmol/L Potassium 3.6 (3.5-5.1) mmol/L Chloride 102 (98-107) mmol/L Carbon Dioxide 23.6 (21.0-32.0) mmol/L BUN 15 (7.0-18.0) mg/dL Creatinine 1.2 (0.8-1.3) mg/dL Est Cr Clr Drug Dosing 64.49 mL/min Estimated GFR (MDRD) > 60.0 ml/min Glucose 158 H (74-106) mg/dL POC Glucose (70-99) mg/dL Hemoglobin A1c (4.5 - 6.2) % Lactic Acid (0.4-2.0) mmol/L Calcium 8.9 (8.5-10.1) mg/dL Magnesium 1.9 (1.8-2.4) mg/dL Total Bilirubin 1.4 H (0.2-1.0) mg/dL AST 15 (15-37) IU/L ALT 29 (14-63) IU/L Alkaline Phosphatase 121 H (46-116) U/L Troponin I < 0.050 (0.000-0.056) ng/mL Total Protein 7.7 (6.4-8.2) g/dL Albumin 3.7 (3.4-5.0) g/dL Globulin 4.0 (2.6-4.0) g/dL Albumin/Globulin Ratio 0.9 (0.9-1.6) Lipase 76 (73-393) U/L Urine Color Urine Appearance Urine pH (5.0-8.0) Ur Specific [place] (1.001-1.035) Urine Protein (NEGATIVE) mg/dL Urine Glucose (UA) (NEGATIVE) mg/dL Urine Ketones (NEGATIVE) mg/dL Urine Occult Blood (NEGATIVE) Urine Nitrite (NEGATIVE) Urine Bilirubin (NEGATIVE) Urine Urobilinogen (<2.0) EU/dL Ur Leukocyte Esterase (NEGATIVE) Urine RBC (0-2/HPF) Urine WBC (0-5/HPF) Ur Epithelial Cells (NONE-FEW) Urine Bacteria (NEGATIVE) Blood Type Antibody Screen 05/30/21 05/30/21 05/31/21 Range/Units 18:30 18:43 00:41 WBC (4.0-11.0) K/uL RBC (4.50-5.90) M/uL Hgb (13.0-17.0) g/dL Hct (38.0-50.0) % MCV (80.0-98.0) fL MCH (27.0-32.0) pg MCHC (31.0-37.0) g/dL RDW Std Deviation (28.0-62.0) fl RDW Coeff of Ortega (11.0-15.0) % Plt Count (150-400) K/uL MPV (7.40-12.00) fL Neut % (Auto) (48.0-80.0) % Lymph % (Auto) (16.0-40.0) % Mineral % (Auto) (0.0-15.0) % Eos % (Auto) (0.0-7.0) % Baso % (Auto) (0.0-1.5) % Neut # (Auto) (1.4-5.7) K/uL Lymph # (Auto) (0.6-2.4) K/uL Mineral # (Auto) (0.0-0.8) K/uL Eos # (Auto) (0.0-0.7) K/uL Baso # (Auto) (0.0-0.1) K/uL Nucleated RBC % /100WBC Nucleated RBCs # K/uL Sodium (136-148) mmol/L Potassium (3.5-5.1) mmol/L Chloride (98-107) mmol/L Carbon Dioxide (21.0-32.0) mmol/L BUN (7.0-18.0) mg/dL Creatinine (0.8-1.3) mg/dL Est Cr Clr Drug Dosing mL/min Estimated GFR (MDRD) ml/min Glucose (74-106) mg/dL POC Glucose 113 H (70-99) mg/dL Hemoglobin A1c 6.2 (4.5 - 6.2) % Lactic Acid 1.3 (0.4-2.0) mmol/L Calcium (8.5-10.1) mg/dL Magnesium (1.8-2.4) mg/dL Total Bilirubin (0.2-1.0) mg/dL AST (15-37) IU/L ALT (14-63) IU/L Alkaline Phosphatase (46-116) U/L Troponin I (0.000-0.056) ng/mL Total Protein (6.4-8.2) g/dL Albumin (3.4-5.0) g/dL Globulin (2.6-4.0) g/dL Albumin/Globulin Ratio (0.9-1.6) Lipase (73-393) U/L Urine Color Urine Appearance Urine pH (5.0-8.0) Ur Specific [place] (1.001-1.035) Urine Protein (NEGATIVE) mg/dL Urine Glucose (UA) (NEGATIVE) mg/dL Urine Ketones (NEGATIVE) mg/dL Urine Occult Blood (NEGATIVE) Urine Nitrite (NEGATIVE) Urine Bilirubin (NEGATIVE) Urine Urobilinogen (<2.0) EU/dL Ur Leukocyte Esterase (NEGATIVE) Urine RBC (0-2/HPF) Urine WBC (0-5/HPF) Ur Epithelial Cells (NONE-FEW) Urine Bacteria (NEGATIVE) Blood Type Antibody Screen 05/31/21 05/31/21 05/31/21 Range/Units 01:15 05:37 05:37 WBC 19.03 H (4.0-11.0) K/uL RBC 4.57 (4.50-5.90) M/uL Hgb 13.2 (13.0-17.0) g/dL Hct 39.0 (38.0-50.0) % MCV 85.3 (80.0-98.0) fL MCH 28.9 (27.0-32.0) pg MCHC 33.8 (31.0-37.0) g/dL RDW Std Deviation 47.5 (28.0-62.0) fl RDW Coeff of Ortega 15 (11.0-15.0) % Plt Count 228 (150-400) K/uL MPV 9.90 (7.40-12.00) fL Neut % (Auto) 87.3 H (48.0-80.0) % Lymph % (Auto) 4.9 L (16.0-40.0) % Mineral % (Auto) 7.5 (0.0-15.0) % Eos % (Auto) 0.2 (0.0-7.0) % Baso % (Auto) 0.1 (0.0-1.5) % Neut # (Auto) 16.6 H (1.4-5.7) K/uL Lymph # (Auto) 0.9 (0.6-2.4) K/uL Mineral # (Auto) 1.4 H (0.0-0.8) K/uL Eos # (Auto) 0.0 (0.0-0.7) K/uL Baso # (Auto) 0.0 (0.0-0.1) K/uL Nucleated RBC % 0.0 /100WBC Nucleated RBCs # 0 K/uL Sodium 138 (136-148) mmol/L Potassium 3.5 (3.5-5.1) mmol/L Chloride 107 (98-107) mmol/L Carbon Dioxide 21.3 (21.0-32.0) mmol/L BUN 11 (7.0-18.0) mg/dL Creatinine 1.1 (0.8-1.3) mg/dL Est Cr Clr Drug Dosing 70.36 mL/min Estimated GFR (MDRD) > 60.0 ml/min Glucose 111 H (74-106) mg/dL POC Glucose (70-99) mg/dL Hemoglobin A1c (4.5 - 6.2) % Lactic Acid (0.4-2.0) mmol/L Calcium 7.5 L (8.5-10.1) mg/dL Magnesium (1.8-2.4) mg/dL Total Bilirubin 1.4 H (0.2-1.0) mg/dL AST 15 (15-37) IU/L ALT 23 (14-63) IU/L Alkaline Phosphatase 102 (46-116) U/L Troponin I (0.000-0.056) ng/mL Total Protein 6.1 L (6.4-8.2) g/dL Albumin 2.8 L (3.4-5.0) g/dL Globulin 3.3 (2.6-4.0) g/dL Albumin/Globulin Ratio 0.9 (0.9-1.6) Lipase (73-393) U/L Urine Color ORANGE Urine Appearance CLEAR Urine pH 5.5 (5.0-8.0) Ur Specific [place] 1.020 (1.001-1.035) Urine Protein TRACE H (NEGATIVE) mg/dL Urine Glucose (UA) NEGATIVE (NEGATIVE) mg/dL Urine Ketones NEGATIVE (NEGATIVE) mg/dL Urine Occult Blood NEGATIVE (NEGATIVE) Urine Nitrite NEGATIVE (NEGATIVE) Urine Bilirubin NEGATIVE (NEGATIVE) Urine Urobilinogen 1.0 (<2.0) EU/dL Ur Leukocyte Esterase NEGATIVE (NEGATIVE) Urine RBC 0-1 (0-2/HPF) Urine WBC 0-1 (0-5/HPF) Ur Epithelial Cells RARE (NONE-FEW) Urine Bacteria RARE (NEGATIVE) Blood Type Antibody Screen 0705/31/21 05/31/21 Range/Units 06:23 13:44 13:44 WBC 19.59 H (4.0-11.0) K/uL RBC 4.39 L (4.50-5.90) M/uL Hgb 12.9 L (13.0-17.0) g/dL Hct 38.0 (38.0-50.0) % MCV 86.6 (80.0-98.0) fL MCH 29.4 (27.0-32.0) pg MCHC 33.9 (31.0-37.0) g/dL RDW Std Deviation 49.2 (28.0-62.0) fl RDW Coeff of Ortega 16 H (11.0-15.0) % Plt Count 223 (150-400) K/uL MPV 9.60 (7.40-12.00) fL Neut % (Auto) (48.0-80.0) % Lymph % (Auto) (16.0-40.0) % Mineral % (Auto) (0.0-15.0) % Eos % (Auto) (0.0-7.0) % Baso % (Auto) (0.0-1.5) % Neut # (Auto) (1.4-5.7) K/uL Lymph # (Auto) (0.6-2.4) K/uL Mineral # (Auto) (0.0-0.8) K/uL Eos # (Auto) (0.0-0.7) K/uL Baso # (Auto) (0.0-0.1) K/uL Nucleated RBC % 0.0 /100WBC Nucleated RBCs # 0 K/uL Sodium (136-148) mmol/L Potassium (3.5-5.1) mmol/L Chloride (98-107) mmol/L Carbon Dioxide (21.0-32.0) mmol/L BUN (7.0-18.0) mg/dL Creatinine (0.8-1.3) mg/dL Est Cr Clr Drug Dosing mL/min Estimated GFR (MDRD) ml/min Glucose (74-106) mg/dL POC Glucose 110 H (70-99) mg/dL Hemoglobin A1c (4.5 - 6.2) % Lactic Acid (0.4-2.0) mmol/L Calcium (8.5-10.1) mg/dL Magnesium (1.8-2.4) mg/dL Total Bilirubin (0.2-1.0) mg/dL AST (15-37) IU/L ALT (14-63) IU/L Alkaline Phosphatase (46-116) U/L Troponin I (0.000-0.056) ng/mL Total Protein (6.4-8.2) g/dL Albumin (3.4-5.0) g/dL Globulin (2.6-4.0) g/dL Albumin/Globulin Ratio (0.9-1.6) Lipase (73-393) U/L Urine Color Urine Appearance Urine pH (5.0-8.0) Ur Specific [place] (1.001-1.035) Urine Protein (NEGATIVE) mg/dL Urine Glucose (UA) (NEGATIVE) mg/dL Urine Ketones (NEGATIVE) mg/dL Urine Occult Blood (NEGATIVE) Urine Nitrite (NEGATIVE) Urine Bilirubin (NEGATIVE) Urine Urobilinogen (<2.0) EU/dL Ur Leukocyte Esterase (NEGATIVE) Urine RBC (0-2/HPF) Urine WBC (0-5/HPF) Ur Epithelial Cells (NONE-FEW) Urine Bacteria (NEGATIVE) Blood Type O POSITIVE Antibody Screen NEGATIVE 05/31/21 Range/Units 13:44 WBC (4.0-11.0) K/uL RBC (4.50-5.90) M/uL Hgb (13.0-17.0) g/dL Hct (38.0-50.0) % MCV (80.0-98.0) fL MCH (27.0-32.0) pg MCHC (31.0-37.0) g/dL RDW Std Deviation (28.0-62.0) fl RDW Coeff of Ortega (11.0-15.0) % Plt Count (150-400) K/uL MPV (7.40-12.00) fL Neut % (Auto) (48.0-80.0) % Lymph % (Auto) (16.0-40.0) % Mineral % (Auto) (0.0-15.0) % Eos % (Auto) (0.0-7.0) % Baso % (Auto) (0.0-1.5) % Neut # (Auto) (1.4-5.7) K/uL Lymph # (Auto) (0.6-2.4) K/uL Mineral # (Auto) (0.0-0.8) K/uL Eos # (Auto) (0.0-0.7) K/uL Baso # (Auto) (0.0-0.1) K/uL Nucleated RBC % /100WBC Nucleated RBCs # K/uL Sodium 138 (136-148) mmol/L Potassium 4.1 (3.5-5.1) mmol/L Chloride 108 H (98-107) mmol/L Carbon Dioxide 19.0 L (21.0-32.0) mmol/L BUN 11 (7.0-18.0) mg/dL Creatinine 0.9 (0.8-1.3) mg/dL Est Cr Clr Drug Dosing 85.99 mL/min Estimated GFR (MDRD) > 60.0 ml/min Glucose 106 (74-106) mg/dL POC Glucose (70-99) mg/dL Hemoglobin A1c (4.5 - 6.2) % Lactic Acid (0.4-2.0) mmol/L Calcium 7.2 L (8.5-10.1) mg/dL Magnesium (1.8-2.4) mg/dL Total Bilirubin (0.2-1.0) mg/dL AST (15-37) IU/L ALT (14-63) IU/L Alkaline Phosphatase (46-116) U/L Troponin I (0.000-0.056) ng/mL Total Protein (6.4-8.2) g/dL Albumin (3.4-5.0) g/dL Globulin (2.6-4.0) g/dL Albumin/Globulin Ratio (0.9-1.6) Lipase (73-393) U/L Urine Color Urine Appearance Urine pH (5.0-8.0) Ur Specific [place] (1.001-1.035) Urine Protein (NEGATIVE) mg/dL Urine Glucose (UA) (NEGATIVE) mg/dL Urine Ketones (NEGATIVE) mg/dL Urine Occult Blood (NEGATIVE) Urine Nitrite (NEGATIVE) Urine Bilirubin (NEGATIVE) Urine Urobilinogen (<2.0) EU/dL Ur Leukocyte Esterase (NEGATIVE) Urine RBC (0-2/HPF) Urine WBC (0-5/HPF) Ur Epithelial Cells (NONE-FEW) Urine Bacteria (NEGATIVE) Blood Type Antibody Screen Result Diagrams: 05/31/21 13:44 05/31/21 13:44 Sepsis Event Note - Evaluation Sepsis Screening Result: No Definite Risk - Focused Exam Vital Signs: Vital Signs Temp Pulse Resp BP Pulse Ox 05/31/21 15:35 94 18 122/59 L 96 05/31/21 15:20 96 18 123/55 L 94 L 05/31/21 15:10 95 18 122/63 96 05/31/21 15:05 78 24 H 151/96 H 95 05/31/21 14:59 91 22 H 171/84 H 95 05/31/21 14:54 99.0 F 84 16 96 05/31/21 12:00 97.0 F 81 16 149/86 H 94 L 05/31/21 08:00 99.4 F 74 16 151/76 H 94 L 05/31/21 04:00 99.8 F 89 18 127/72 91 L - Problem List & Annotations (1) Acute cholecystitis SNOMED Code(s): 93959869 Code(s): K81.0 - ACUTE CHOLECYSTITIS Status: Acute Current Visit: Yes - Problem List Review Problem List Initiated/Reviewed/Updated: Yes - Plan Plan:: 89-mok[age]-ohj-male admitted with acute cholecystitis. He is being treated with Z osyn, we will continue this. He remains NPO. Dr. Quinteros will be taking him for surgery later today. We will begin Lovenox after his surgery. Pain is managed with Dilaudid. Will follow up on blood cultures.
[2021-05-31] MEDS ORDERED: Enoxaparin 40 MG/0.4 ML Syringe SUBCUT SCH (18:00)
--- NOTE | 2021-05-31 18:33 | OR ---
SURGEON: CEE GARNER MD DATE OF PROCEDURE: 05/31/2021 PREOPERATIVE DIAGNOSIS: Acute cholecystitis. POSTOPERATIVE DIAGNOSIS: Acute cholecystitis. PROCEDURE PERFORMED: Laparoscopic converted to open cholecystectomy. PRIMARY SURGEON: Cee Garner MD SECONDARY SURGEON: Robert Stauffer MD FLUIDS: 1100 mL crystalloid. ESTIMATED BLOOD LOSS: 500 mL. URINE OUTPUT: 90 mL. FINDINGS: Severely inflamed gallbladder encased in thickened surrounding omentum. Gallbladder lumen contained purulent material. COMPLICATIONS: None. INDICATIONS: The patient is a 65-year-old male who presented to the emergency room last night with epigastric abdominal pain. Workup revealed acute cholecystitis. The patient and I discussed the need for a laparoscopic possible open cholecystectomy. His imaging showed severe inflammation, and I warned the patient that with these findings, there is a high probability we may end up going open. I would attempt the procedure laparoscopically, but convert to open should I be unable to perform it safely. I explained the expected perioperative course and the risks. The patient verbalized understanding and wished to proceed. PROCEDURE IN DETAIL: The patient was brought into the OR suite and placed on the OR table in supine position. A time-out was completed verifying the patient's name, age, date of , allergies, and procedure to be performed. General endotracheal anesthesia was induced. The left arm was tucked to the patient's side and a Smyth catheter placed. The abdomen was shaved, then prepped and draped in usual standard fashion. I anesthetized the infraumbilical fold with 0.5% Marcaine plain. An 11 blade was used to make an incision along the infraumbilical fold. Cautery was used to dissect down through the level of subcutaneous fat. I then reached the fascia using blunt dissection. The fascia was grasped with Kochers and incised sharply with curved Cheatham scissors. Entry into the abdomen was palpated digitally. Stay sutures were placed on either side of the fascia using 0 Vicryl suture. A 12 mm Glenis trocar was inserted in the abdomen and it was insufflated. I inspected the area underneath my initial trocar placement. No damage to surrounding structures was noted. The patient was placed into reverse Trendelenburg position and airplaned slightly to the left. 5 mm trocars were placed in the following locations under direct visualization; one in the epigastric area, one 2 fingerbreadths below the right subcostal margin in the midclavicular line, and one in the right flank. I attempted to sweep away the omentum overlying the gallbladder; however, it was thickly encased around the gallbladder itself. I tried using blunt dissection using a suction device as well as graspers, but I could not create a window between the gallbladder and the surrounding inflamed omentum. The decision was made to convert to open to allow better exposure and dissection along the gallbladder. The abdomen was desufflated and the 5 mm trocars were removed. The 12 mm Glenis trocar was removed as well. The fascia at the infraumbilical port site was closed with interrupted 0 Vicryl sutures. Using a 15 blade, I made an oblique incision along the right upper quadrant 2 fingerbreadths along the costal margin. Electrocautery was used to dissect down to the layer of the anterior fascia. The anterior fascia was incised sharply. I then opened the fascia using electrocautery. The rectus muscle was opened meticulously using electrocautery as well. The posterior fascia and peritoneum were grasped with hemostats and incised sharply with a Jesus. I then extended my incision both medially and laterally. Moistened laps were placed in the abdomen to retract the surrounding structures. Retractors were put in place to expose the gallbladder itself. Using finger dissection, I was able to dissect the gallbladder away from the surrounding encased omentum. A metal trocar was then placed through the dome of the gallbladder and this was placed on suction. Cloudy purulent material was aspirated from the gallbladder. The trocar was removed. I then grasped the gallbladder with a Carmalt in order to manipulate it. My partner, Dr. Robert Stauffer was called to assist on the case. Given how thickened and inflamed the tissue was along the proximal half of the gallbladder, I decided to start my dissection in a dome-down manner. Using a Metzenbaum scissors, I created a window between the gallbladder and the gallbladder fossa. Using gentle blunt dissection with a Kittner as well as finger dissection and cautery, I took down the adhesions of the gallbladder to the liver bed from distal to proximal. This allowed more mobilization of the gallbladder allowing me to better view the proximal half. Once I had taken the gallbladder down about two- thirds of the way, I turned my attention to the proximal gallbladder. The cystic duct and artery were encased in inflamed fatty tissue. Using a Kittner and a Jesus, we began to create a window along the structures. A right angle was used to separate the tissues. At one point, brisk arterial bleeding was noted. This appeared to be the cystic artery. This was grasped with a right angle and the bleeding controlled with a medium-sized clip. We then took down the remainder of the attachments of the gallbladder to the gallbladder fossa. We could then clearly see the cystic duct as it inserted on the gallbladder and see where it inserted on the common bile duct as well. We cleared away all the tissue around the cystic duct. We then ligated the cystic duct with 2, interrupted 0 Vicryl sutures. A clamp was placed along the proximal gallbladder and the Jesus used to cut the gallbladder where it inserted on the cystic duct. The gallbladder was then passed off the field and sent to Pathology. There was no evidence of bile leakage. Pressure was held within the gallbladder fossa for 2 minutes. Afterwards, there appeared to be hemostasis. Surgicel and Avitene were placed in the gallbladder fossa. We irrigated the right upper quadrant copiously with a normal saline Ancef solution. A 19-Nepali Hima drain was brought through the right lateral port site and placed along the gallbladder fossa. It was secured to the skin using a 2-0 silk suture. The peritoneum and posterior fascia were closed with running 0 Vicryl sutures. The anterior rectus sheath was closed with interrupted 0 Ethibond sutures. An On-Q pump was placed over the top of the anterior rectus sheath. The subcutaneous fat layer was closed with a running 3-0 Vicryl stitch. The skin was then closed with dominique. The infraumbilical port site was closed with interrupted 3-0 Vicryl suture in the subcutaneous fat layer and skin with dominique. Sterile dressings were applied. The patient was extubated and taken to PACU in stable condition. All counts were complete and correct at the end of the case. CHUCKIE / PARISH /[id number] NAKIA
[2021-05-31] MEDS: Ketorolac 15 MG/ML SDV IVPUSH SCH (20:44)
[2021-05-31] MEDS: atorvaSTATin 40 MG Tab PO SCH (20:45)
[2021-05-31] MEDS: Cyclobenzaprine 5 MG Tab PO SCH (23:04)
[2021-06-01] MEDS: Insulin Aspart 100 Units/ML 3 ML Pen SUBCUT SCH ×6 (00:36→23:50)
[2021-06-01] MEDS: Ketorolac 15 MG/ML SDV IVPUSH SCH ×3 (03:52→14:58)
[2021-06-01] MEDS: Piperacillin/Tazobactam 3.375 GM in Sodium Chloride 0.9% 100 ML IV SCH ×2 (03:53→09:39)
[2021-06-01] MEDS: Cyclobenzaprine 5 MG Tab PO SCH ×3 (06:19→21:00)
[2021-06-01 06:30] LABS: BLOOD UREA NITROGEN,BUN 16 mg/dL (7.0-18.0); CHLORIDE,CL 106 mmol/L (98-107); GLUCOSE RANDOM 154 mg/dL (74-106); SODIUM,NA 140 mmol/L (136-148)
[2021-06-01] MEDS: Escitalopram 10 MG Tab PO SCH (08:49)
[2021-06-01] MEDS: Polyethylene Glycol 3350 Powder 17 GM Packet PO SCH (08:51)
--- NOTE | 2021-06-01 09:32 | PCM.SURGPN ---
- General Info Date of Service: 06/01/21 Date of Surgery/Procedure: 05/31/21 POD#: 1 Functional Status: Reports: Pain Controlled, Tolerating Diet - Review of Systems General: Reports: No Symptoms HEENT: Reports: No Symptoms Pulmonary: Reports: No Symptoms Cardiovascular: Reports: No Symptoms Gastrointestinal: Reports: No Symptoms Musculoskeletal: Reports: No Symptoms Skin: Reports: No Symptoms - Patient Data Vitals - Most Recent: Last Vital Signs Temp 36.5 C 06/01/21 04:00 Pulse 64 06/01/21 04:00 Resp 19 06/01/21 04:00 BP 125/65 06/01/21 04:00 Pulse Ox 95 06/01/21 04:00 Weight - Most Recent: 102.603 kg I&O - Last 24 Hours: Intake & Output 05/31/21 06/01/21 06/01/21 22:59 06:59 14:59 Intake Total 1600 520 Output Total 880 840 Balance 720 -320 Lab Results Last 24 Hrs: Laboratory Results - last 24 hr 05/31/21 05/31/21 05/31/21 Range/Units 13:44 13:44 13:44 WBC 19.59 H (4.0-11.0) K/uL RBC 4.39 L (4.50-5.90) M/uL Hgb 12.9 L (13.0-17.0) g/dL Hct 38.0 (38.0-50.0) % MCV 86.6 (80.0-98.0) fL MCH 29.4 (27.0-32.0) pg MCHC 33.9 (31.0-37.0) g/dL RDW Std Deviation 49.2 (28.0-62.0) fl RDW Coeff of Ortega 16 H (11.0-15.0) % Plt Count 223 (150-400) K/uL MPV 9.60 (7.40-12.00) fL Nucleated RBC % 0.0 /100WBC Nucleated RBCs # 0 K/uL Sodium 138 (136-148) mmol/L Potassium 4.1 (3.5-5.1) mmol/L Chloride 108 H (98-107) mmol/L Carbon Dioxide 19.0 L (21.0-32.0) mmol/L BUN 11 (7.0-18.0) mg/dL Creatinine 0.9 (0.8-1.3) mg/dL Est Cr Clr Drug Dosing 85.99 mL/min Estimated GFR (MDRD) > 60.0 ml/min Glucose 106 (74-106) mg/dL POC Glucose (70-99) mg/dL Calcium 7.2 L (8.5-10.1) mg/dL Phosphorus (2.6-4.7) mg/dL Magnesium (1.8-2.4) mg/dL Total Bilirubin (0.2-1.0) mg/dL AST (15-37) IU/L ALT (14-63) IU/L Alkaline Phosphatase (46-116) U/L Total Protein (6.4-8.2) g/dL Albumin (3.4-5.0) g/dL Globulin (2.6-4.0) g/dL Albumin/Globulin Ratio (0.9-1.6) Blood Type O POSITIVE Antibody Screen NEGATIVE 05/31/21 06/01/21 06/01/21 Range/Units 17:39 00:03 05:00 WBC 16.16 H (4.0-11.0) K/uL RBC 4.25 L (4.50-5.90) M/uL Hgb 12.3 L (13.0-17.0) g/dL Hct 36.8 L (38.0-50.0) % MCV 86.6 (80.0-98.0) fL MCH 28.9 (27.0-32.0) pg MCHC 33.4 (31.0-37.0) g/dL RDW Std Deviation 49.4 (28.0-62.0) fl RDW Coeff of Ortega 16 H (11.0-15.0) % Plt Count 245 (150-400) K/uL MPV 10.30 (7.40-12.00) fL Nucleated RBC % 0.0 /100WBC Nucleated RBCs # 0 K/uL Sodium (136-148) mmol/L Potassium (3.5-5.1) mmol/L Chloride (98-107) mmol/L Carbon Dioxide (21.0-32.0) mmol/L BUN (7.0-18.0) mg/dL Creatinine (0.8-1.3) mg/dL Est Cr Clr Drug Dosing mL/min Estimated GFR (MDRD) ml/min Glucose (74-106) mg/dL POC Glucose 148 H 176 H (70-99) mg/dL Calcium (8.5-10.1) mg/dL Phosphorus (2.6-4.7) mg/dL Magnesium (1.8-2.4) mg/dL Total Bilirubin (0.2-1.0) mg/dL AST (15-37) IU/L ALT (14-63) IU/L Alkaline Phosphatase (46-116) U/L Total Protein (6.4-8.2) g/dL Albumin (3.4-5.0) g/dL Globulin (2.6-4.0) g/dL Albumin/Globulin Ratio (0.9-1.6) Blood Type Antibody Screen 06/01/21 06/01/21 Range/Units 05:00 06:16 WBC (4.0-11.0) K/uL RBC (4.50-5.90) M/uL Hgb (13.0-17.0) g/dL Hct (38.0-50.0) % MCV (80.0-98.0) fL MCH (27.0-32.0) pg MCHC (31.0-37.0) g/dL RDW Std Deviation (28.0-62.0) fl RDW Coeff of Ortega (11.0-15.0) % Plt Count (150-400) K/uL MPV (7.40-12.00) fL Nucleated RBC % /100WBC Nucleated RBCs # K/uL Sodium 140 (136-148) mmol/L Potassium 4.0 (3.5-5.1) mmol/L Chloride 106 (98-107) mmol/L Carbon Dioxide 25.0 (21.0-32.0) mmol/L BUN 16 (7.0-18.0) mg/dL Creatinine 1.2 (0.8-1.3) mg/dL Est Cr Clr Drug Dosing 64.49 mL/min Estimated GFR (MDRD) > 60.0 ml/min Glucose 154 H (74-106) mg/dL POC Glucose 150 H (70-99) mg/dL Calcium 7.7 L (8.5-10.1) mg/dL Phosphorus 2.2 L (2.6-4.7) mg/dL Magnesium 2.1 (1.8-2.4) mg/dL Total Bilirubin 0.7 (0.2-1.0) mg/dL AST 28 (15-37) IU/L ALT 37 (14-63) IU/L Alkaline Phosphatase 99 (46-116) U/L Total Protein 6.0 L (6.4-8.2) g/dL Albumin 2.5 L (3.4-5.0) g/dL Globulin 3.5 (2.6-4.0) g/dL Albumin/Globulin Ratio 0.7 L (0.9-1.6) Blood Type Antibody Screen Marvin Results Last 24 Hrs: Microbiology 05/30/21 19:03 Aerobic Blood Culture - Preliminary Blood - Venous - Lab Draw NO GROWTH AFTER 1 DAY Anaerobic Blood Culture - Preliminary NO GROWTH AFTER 1 DAY 05/30/21 19:03 Aerobic Blood Culture - Preliminary Blood - Venous NO GROWTH AFTER 1 DAY Anaerobic Blood Culture - Preliminary NO GROWTH AFTER 1 DAY Med Orders - Current: Current Medications Atorvastatin Calcium (Atorvastatin 40 Mg Tab) 40 mg PO BEDTIME [facility] Last Admin: 05/31/21 20:45 Dose: 40 mg Documented by: Cyclobenzaprine HCl (Cyclobenzaprine 5 Mg Tab) 5 mg PO TID [facility] Last Admin: 06/01/21 06:19 Dose: 5 mg Documented by: Dextrose/Water (50% Dextrose In Water 50 Ml Syringe) 50 ml IVPUSH ASDIRECTED PRN PRN Reason: Hypoglycemia Escitalopram Oxalate (Escitalopram 10 Mg Tab) 20 mg PO DAILY [facility] Last Admin: 06/01/21 08:49 Dose: 20 mg Documented by: Glucagon (Glucagon,Human Recombinant 1 Mg Vial) 1 mg IM ASDIRECTED PRN PRN Reason: Hypoglycemia Piperacillin Sod/Tazobactam (Sod 3.375 gm/ Sodium Chloride) 100 mls @ 200 mls/hr IV Q6H [facility] Last Admin: 06/01/21 03:53 Dose: 200 mls/hr Documented by: Insulin Aspart (Insulin Aspart 100 Units/Ml 3 Ml Pen) 0 unit SUBCUT Q6H [facility]; Protocol Last Admin: 06/01/21 06:36 Dose: Not Given Documented by: Ketorolac Tromethamine (Ketorolac 15 Mg/Ml Sdv) 15 mg IVPUSH Q6H [facility] Stop: 06/01/21 15:01 Last Admin: 06/01/21 08:50 Dose: 15 mg Documented by: Oxycodone/Acetaminophen (Acetaminophen/Oxycodone 325-5 Mg Tab) 2 tab PO Q4H PRN PRN Reason: Pain (severe 7-10) Polyethylene Glycol (Polyethylene Glycol 3350 Powder 17 Gm Packet) 17 gm PO DAILY [facility] Last Admin: 06/01/21 08:51 Dose: 17 gm Documented by: Sodium Chloride (Sodium Chloride 0.9% 2.5 Ml Syringe) 2.5 ml FLUSH ASDIRECTED PRN PRN Reason: Keep Vein Open Last Admin: 05/30/21 18:29 Dose: 2.5 ml Documented by: Sodium Chloride (Sodium Chloride 0.9% 10 Ml Syringe) 10 ml FLUSH ASDIRECTED PRN PRN Reason: Keep Vein Open Last Admin: 05/30/21 18:29 Dose: 10 ml Documented by: Discontinued Medications Albuterol (Albuterol 0.083% 2.5 Mg/3 Ml Neb Soln) 2.5 mg NEB ONETIME PRN PRN Reason: Wheezing Bupivacaine HCl (Bupivacaine 0.5% 30 Ml Sdv) Confirm Administered Dose 30 ml .ROUTE .STK-MED ONE Stop: 05/31/21 12:03 Bupivacaine HCl (Bupivacaine 0.5% 30 Ml Sdv) Confirm Administered Dose 120 ml .ROUTE .STK-MED ONE Stop: 05/31/21 14:06 Cefazolin Sodium (Cefazolin 1 Gm Vial) Confirm Administered Dose 1 gm .ROUTE .STK-MED ONE Stop: 05/31/21 13:22 Dexamethasone (Dexamethasone 4 Mg/Ml 5 Ml Mdv) Confirm Administered Dose 20 mg .ROUTE .STK-MED ONE Stop: 05/31/21 12:07 Droperidol (Droperidol 5 Mg/2 Ml Sdv) 0.625 mg IVPUSH ONETIME PRN PRN Reason: Nausea/Vomiting Enoxaparin Sodium (Enoxaparin 40 Mg/0.4 Ml Syringe) 40 mg SUBCUT Q24H [facility] Last Admin: 05/31/21 18:51 Dose: 40 mg Documented by: Fentanyl (Fentanyl 100 Mcg/2 Ml Sdv) 50 mcg IVPUSH Q5M PRN PRN Reason: Pain (mild 1-3) Fentanyl (Fentanyl 100 Mcg/2 Ml Sdv) Confirm Administered Dose 100 mcg .ROUTE .STK-MED ONE Stop: 05/31/21 12:06 Fentanyl (Fentanyl 100 Mcg/2 Ml Sdv) Confirm Administered Dose 100 mcg .ROUTE .STK-MED ONE Stop: 05/31/21 13:26 Hydromorphone HCl (Hydromorphone 2 Mg/Ml Syringe) 0.5 mg IVPUSH ONETIME ONE Stop: 05/30/21 18:36 Last Admin: 05/30/21 18:55 Dose: 0.5 mg Documented by: Hydromorphone HCl (Hydromorphone 2 Mg/Ml Syringe) 0.5 mg IVPUSH Q2H PRN PRN Reason: Pain (severe 7-10) Last Admin: 05/31/21 15:12 Dose: 0.5 mg Documented by: Hydromorphone HCl (Hydromorphone 2 Mg/Ml Syringe) 1 mg IVPUSH Q10M PRN PRN Reason: Pain (moderate 4-6) Last Admin: 05/31/21 15:20 Dose: 0.5 mg Documented by: Sodium Chloride (Normal Saline) 1,000 mls @ 999 mls/hr IV STAT ONE Stop: 05/30/21 19:24 Last Infusion: 05/30/21 19:17 Dose: Infused Documented by: Sodium Chloride (Normal Saline) 1,000 mls @ 999 mls/hr IV STAT ONE Stop: 05/30/21 20:02 Last Admin: 05/30/21 19:18 Dose: 999 mls/hr Documented by: Piperacillin Sod/Tazobactam (Sod 3.375 gm/ Sodium Chloride) 50 mls @ 100 mls/hr IV ONETIME ONE Stop: 05/30/21 22:35 Last Admin: 05/30/21 22:49 Dose: 100 mls/hr Documented by: Sodium Chloride (Normal Saline) 1,000 mls @ 125 mls/hr IV STAT ONE Stop: 05/31/21 06:15 Last Admin: 05/30/21 22:51 Dose: 125 mls/hr Documented by: Piperacillin Sod/Tazobactam (Sod 3.375 gm/ Sodium Chloride) 50 mls @ 100 mls/hr IV Q6H [facility] Last Admin: 05/31/21 19:56 Dose: Not Given Documented by: Sodium Chloride (Normal Saline) 1,000 mls @ 125 mls/hr IV ASDIRECTED [facility] Last Admin: 05/31/21 09:50 Dose: 125 mls/hr Documented by: Acetaminophen (Ofirmev 1000 Mg/100 Ml) Confirm Administered Dose 100 mls @ as directed .ROUTE .STK-MED ONE Stop: 05/31/21 12:53 Iopamidol (Iopamidol 755 Mg/Ml 100 Ml Bottle) 100 ml IVPUSH ONETIME ONE Stop: 05/30/21 20:52 Last Admin: 05/30/21 20:51 Dose: 100 ml Documented by: Ketorolac Tromethamine (Ketorolac 30 Mg/Ml Sdv) 30 mg IVPUSH ONETIME ONE Stop: 05/30/21 18:36 Last Admin: 05/30/21 18:56 Dose: 30 mg Documented by: Ketorolac Tromethamine (Ketorolac 30 Mg/Ml Sdv) Confirm Administered Dose 30 mg .ROUTE .STK-MED ONE Stop: 05/31/21 14:36 Lidocaine (Lidocaine 2% 5 Ml Sdv) Confirm Administered Dose 5 ml .ROUTE .STK-MED ONE Stop: 05/31/21 12:06 Metoclopramide HCl (Metoclopramide 10 Mg/2 Ml Sdv) 10 mg IVPUSH ONETIME PRN PRN Reason: Nausea/Vomiting Midazolam HCl (Midazolam 1 Mg/Ml 2 Ml Sdv) Confirm Administered Dose 2 mg .ROUTE .STK-MED ONE Stop: 05/31/21 12:06 Morphine Sulfate (Morphine 2 Mg/Ml Syringe) 2 mg IVPUSH Q10M PRN PRN Reason: Pain (severe 7-10) Naloxone HCl (Naloxone 0.4 Mg/Ml Syringe) 0.1 mg IVPUSH ASDIRECTED PRN PRN Reason: Respiratory Depression Octyl Cyanoacrylate (Octyl 2-Cyanoacrylate 1 Tube) Confirm Administered Dose 1 applic .ROUTE .STK-MED ONE Stop: 05/31/21 12:04 Ondansetron HCl (Ondansetron 4 Mg/2 Ml Sdv) 4 mg IVPUSH ONETIME ONE Stop: 05/30/21 18:36 Last Admin: 05/30/21 18:57 Dose: 4 mg Documented by: Ondansetron HCl (Ondansetron 4 Mg/2 Ml Sdv) 4 mg IVPUSH Q4H PRN PRN Reason: Nausea Ondansetron HCl (Ondansetron 4 Mg/2 Ml Sdv) 4 mg IVPUSH ONETIME PRN PRN Reason: Nausea/Vomiting Ondansetron HCl (Ondansetron 4 Mg/2 Ml Sdv) Confirm Administered Dose 4 mg .ROUTE .STK-MED ONE Stop: 05/31/21 12:07 Propofol (Propofol 200 Mg/20 Ml Sdv) Confirm Administered Dose 200 mg .ROUTE .STK-MED ONE Stop: 05/31/21 12:06 Rocuronium Lewis (Rocuronium Lewis 50 Mg/5 Ml Syringe) Confirm Administered Dose 50 mg .ROUTE .STK-MED ONE Stop: 05/31/21 12:06 Rocuronium Lewis (Rocuronium Lewis 50 Mg/5 Ml Syringe) Confirm Administered Dose 50 mg .ROUTE .STK-MED ONE Stop: 05/31/21 13:51 Sugammadex Sodium (Sugammadex Sodium 200 Mg/2 Ml Vial) Confirm Administered Dose 200 mg .ROUTE .STK-MED ONE Stop: 05/31/21 14:35 - Exam Wound/Incisions: Dressing Dry and Intact, Other (drain with scant serosanguinous drainage ) General: Alert, Oriented, Cooperative Lungs: Normal Respiratory Effort Cardiovascular: Regular Rate GI/Abdominal Exam: Soft, Non-Tender, No Distention, No Mass Extremities: Normal Inspection Skin: Warm, Dry, Intact Psy/Mental Status: Alert, Normal Affect, Normal Mood Sepsis Event Note - Evaluation Sepsis Screening Result: No Definite Risk - Focused Exam Vital Signs: Vital Signs Temp Pulse Resp BP Pulse Ox 06/01/21 04:00 36.5 C 64 19 125/65 95 06/01/21 00:00 37.2 C 62 18 135/68 97 - Problem List & Annotations (1) Acute cholecystitis SNOMED Code(s): 32430851 Code(s): K81.0 - ACUTE CHOLECYSTITIS Status: Acute Current Visit: Yes (2) Sepsis SNOMED Code(s): 11399114 Code(s): A41.9 - SEPSIS, UNSPECIFIED ORGANISM Status: Acute Current Visit: Yes Qualifiers: Sepsis type: sepsis due to unspecified organism Sepsis acute organ dysfunction status: without acute organ dysfunction Qualified Code(s): A41.9 - Sepsis, unspecified organism - Problem List Review Problem List Initiated/Reviewed/Updated: Yes - My Orders Last 24 Hours: Active Orders 24 hr Category Date Time Status Overnight Pulse Oximetry [RC] Click to Edit Care 05/31/21 10:31 Active Oxygen Therapy [RC] PRN Care 05/31/21 10:31 Active Remove Smyth Catheter [Urinary Catheter Removal] [RC] Care 06/01/21 07:42 Active PER UNIT ROUTINE Clear Liquid Diet [DIET] Diet 05/31/21 Dinner Active Regular Diet [DIET] Diet 06/01/21 Lunch Active CBC W/O DIFF,HEMOGRAM [HEME] AM Lab 06/02/21 05:11 Ordered CMP [COMPREHENSIVE METABOLIC PN,CMP] [CHEM] AM Lab 06/02/21 05:11 Ordered Acetaminophen/oxyCODONE [Percocet 325-5 MG] Med 05/31/21 14:52 Active 2 tab PO Q4H PRN Cyclobenzaprine [Flexeril] Med 05/31/21 22:00 Active 5 mg PO TID Escitalopram [Lexapro] Med 06/01/21 09:00 Active 20 mg PO DAILY Ketorolac [Toradol] Med 05/31/21 21:00 Active 15 mg IVPUSH Q6H Piperacillin/Tazobactam [Piperacil-Tazobact] 3.375 gm Med 05/31/21 10:30 Active Sodium Chloride 0.9% [Normal Saline] 100 ml IV Q6H atorvaSTATin [Lipitor] Med 05/31/21 21:00 Active 40 mg PO BEDTIME polyethylene glycoL 3350 [MiraLAX] Med 06/01/21 09:00 Active 17 gm PO DAILY Pulse Oximetry Continuous Monitoring [OM.PC] Routine Oth 05/31/21 10:31 Ordered Medication Orders Atorvastatin Calcium (Atorvastatin 40 Mg Tab) 40 mg PO BEDTIME [facility] Last Admin: 05/31/21 20:45 Dose: 40 mg Documented by: XENIA Cyclobenzaprine HCl (Cyclobenzaprine 5 Mg Tab) 5 mg PO TID [facility] Last Admin: 06/01/21 06:19 Dose: 5 mg Documented by: Admin: 05/31/21 23:04 Dose: 5 mg Documented by: XENIA Dextrose/Water (50% Dextrose In Water 50 Ml Syringe) 50 ml IVPUSH ASDIRECTED PRN PRN Reason: Hypoglycemia Escitalopram Oxalate (Escitalopram 10 Mg Tab) 20 mg PO DAILY [facility] Last Admin: 06/01/21 08:49 Dose: 20 mg Documented by: BENITO Glucagon (Glucagon,Human Recombinant 1 Mg Vial) 1 mg IM ASDIRECTED PRN PRN Reason: Hypoglycemia Piperacillin Sod/Tazobactam (Sod 3.375 gm/ Sodium Chloride) 100 mls @ 200 mls/hr IV Q6H [facility] Last Admin: 06/01/21 03:53 Dose: 200 mls/hr Documented by: Infusion: 05/31/21 23:35 Dose: 200 mls/hr Documented by: Admin: 05/31/21 23:05 Dose: 200 mls/hr Documented by: Infusion: 05/31/21 17:28 Dose: 200 mls/hr Documented by: Admin: 05/31/21 16:58 Dose: 200 mls/hr Documented by: Infusion: 05/31/21 11:11 Dose: 200 mls/hr Documented by: Admin: 05/31/21 10:41 Dose: 200 mls/hr Documented by: OCTAVIO Insulin Aspart (Insulin Aspart 100 Units/Ml 3 Ml Pen) 0 unit SUBCUT Q6H [facility]; Protocol Last Admin: 06/01/21 06:36 Dose: Not Given Documented by: Admin: 06/01/21 00:36 Dose: Not Given Documented by: Admin: 05/31/21 18:42 Dose: Not Given Documented by: Admin: 05/31/21 11:43 Dose: Not Given Documented by: Admin: 05/31/21 06:31 Dose: Not Given Documented by: Admin: 05/31/21 01:22 Dose: Not Given Documented by: XENIA Ketorolac Tromethamine (Ketorolac 15 Mg/Ml Sdv) 15 mg IVPUSH Q6H [facility] Stop: 06/01/21 15:01 Last Admin: 06/01/21 08:50 Dose: 15 mg Documented by: Admin: 06/01/21 03:52 Dose: 15 mg Documented by: Admin: 05/31/21 20:44 Dose: 15 mg Documented by: XENIA Oxycodone/Acetaminophen (Acetaminophen/Oxycodone 325-5 Mg Tab) 2 tab PO Q4H PRN PRN Reason: Pain (severe 7-10) Polyethylene Glycol (Polyethylene Glycol 3350 Powder 17 Gm Packet) 17 gm PO DAILY [facility] Last Admin: 06/01/21 08:51 Dose: 17 gm Documented by: BENITO Sodium Chloride (Sodium Chloride 0.9% 2.5 Ml Syringe) 2.5 ml FLUSH ASDIRECTED PRN PRN Reason: Keep Vein Open Last Admin: 05/30/21 18:29 Dose: 2.5 ml Documented by: ERNST Sodium Chloride (Sodium Chloride 0.9% 10 Ml Syringe) 10 ml FLUSH ASDIRECTED PRN PRN Reason: Keep Vein Open Last Admin: 05/30/21 18:29 Dose: 10 ml Documented by: ERNST - Plan Plan (Free Text/Narrative):: Patient is doing well on POD #1. I encouraged him to ambulate and be out of bed often today. Pain: Percocet 53 25 mg 1-2 tablets every 4 hours when necessary pain, scheduled Toradol for 4 doses. IV Dilaudid when necessary severe pain. Scheduled Flexeril. Okay to remove Smyth today. Regular diet. Started MiraLAX daily to begin a bowel regiment. Remainder of care as per medicine team. Greatly appreciate their assistance in caring for this patient. Okay to start Lovenox for DVT prophylaxis. Would place the patient on a daily PPI given his history of GERD.
[2021-06-01] MEDS: Ciprofloxacin 500 MG Tab PO SCH ×2 (12:36→21:00)
[2021-06-01] MEDS: metroNIDAZOLE 250 MG Tab PO SCH ×2 (12:36→20:59)
--- NOTE | 2021-06-01 14:30 | PCM.PN ---
- General Info Date of Service: 06/01/21 Admission Dx/Problem (Free Text): Admission Diagnosis/Problem Admission Diagnosis/Problem Acute cholecystitis Subjective Update: 65-year-old male with a history of diabetes mellitus and hypertension is postop day 1 for cholecystectomy done for acute cholecystitis. Patient tolerated the procedure well and denies abdominal pain this morning. He tolerated liquid diet yesterday. Patient's pain is well controlled. Patient denies fever, chills, chest pain, palpitations or leg pain. Dr. Quinteros has advance the patient to reg ular diet for lunch today. She would like to switch him to oral ciprofloxacin and Flagyl. Patient will likely be discharged tomorrow. - Review of Systems General: Denies: Fever, Chills HEENT: Reports: No Symptoms Pulmonary: Denies: Shortness of Breath, Pleuritic Chest Pain, Cough, Sputum Cardiovascular: Denies: Chest Pain, Palpitations Gastrointestinal: Reports: Abdominal Pain. Denies: Diarrhea, Difficulty Swallowing, Hematochezia, Melena, Nausea, Vomiting Genitourinary: Denies: Dysuria, Frequency Musculoskeletal: Denies: Leg Pain, Joint Pain, Joint Swelling Skin: Reports: No Symptoms Neurological: Reports: No Symptoms - Patient Data Vitals - Most Recent: Last Vital Signs Temp 96.1 F L 06/01/21 12:00 Pulse 56 L 06/01/21 12:00 Resp 16 06/01/21 12:00 BP 129/75 06/01/21 12:00 Pulse Ox 92 L 06/01/21 12:00 Weight - Most Recent: 226 lb 3.2 oz I&O - Last 24 Hours: Intake & Output 05/31/21 06/01/21 06/01/21 22:59 06:59 14:59 Intake Total 1600 520 150 Output Total 880 840 Balance 720 -320 150 Lab Results Last 24 Hours: Laboratory Results - last 24 hr 05/31/21 05/31/21 05/31/21 Range/Units 13:44 13:44 13:44 WBC 19.59 H (4.0-11.0) K/uL RBC 4.39 L (4.50-5.90) M/uL Hgb 12.9 L (13.0-17.0) g/dL Hct 38.0 (38.0-50.0) % MCV 86.6 (80.0-98.0) fL MCH 29.4 (27.0-32.0) pg MCHC 33.9 (31.0-37.0) g/dL RDW Std Deviation 49.2 (28.0-62.0) fl RDW Coeff of Ortega 16 H (11.0-15.0) % Plt Count 223 (150-400) K/uL MPV 9.60 (7.40-12.00) fL Nucleated RBC % 0.0 /100WBC Nucleated RBCs # 0 K/uL Sodium 138 (136-148) mmol/L Potassium 4.1 (3.5-5.1) mmol/L Chloride 108 H (98-107) mmol/L Carbon Dioxide 19.0 L (21.0-32.0) mmol/L BUN 11 (7.0-18.0) mg/dL Creatinine 0.9 (0.8-1.3) mg/dL Est Cr Clr Drug Dosing 85.99 mL/min Estimated GFR (MDRD) > 60.0 ml/min Glucose 106 (74-106) mg/dL POC Glucose (70-99) mg/dL Calcium 7.2 L (8.5-10.1) mg/dL Phosphorus (2.6-4.7) mg/dL Magnesium (1.8-2.4) mg/dL Total Bilirubin (0.2-1.0) mg/dL AST (15-37) IU/L ALT (14-63) IU/L Alkaline Phosphatase (46-116) U/L Total Protein (6.4-8.2) g/dL Albumin (3.4-5.0) g/dL Globulin (2.6-4.0) g/dL Albumin/Globulin Ratio (0.9-1.6) Blood Type O POSITIVE Antibody Screen NEGATIVE 05/31/21 06/01/21 06/01/21 Range/Units 17:39 00:03 05:00 WBC 16.16 H (4.0-11.0) K/uL RBC 4.25 L (4.50-5.90) M/uL Hgb 12.3 L (13.0-17.0) g/dL Hct 36.8 L (38.0-50.0) % MCV 86.6 (80.0-98.0) fL MCH 28.9 (27.0-32.0) pg MCHC 33.4 (31.0-37.0) g/dL RDW Std Deviation 49.4 (28.0-62.0) fl RDW Coeff of Ortega 16 H (11.0-15.0) % Plt Count 245 (150-400) K/uL MPV 10.30 (7.40-12.00) fL Nucleated RBC % 0.0 /100WBC Nucleated RBCs # 0 K/uL Sodium (136-148) mmol/L Potassium (3.5-5.1) mmol/L Chloride (98-107) mmol/L Carbon Dioxide (21.0-32.0) mmol/L BUN (7.0-18.0) mg/dL Creatinine (0.8-1.3) mg/dL Est Cr Clr Drug Dosing mL/min Estimated GFR (MDRD) ml/min Glucose (74-106) mg/dL POC Glucose 148 H 176 H (70-99) mg/dL Calcium (8.5-10.1) mg/dL Phosphorus (2.6-4.7) mg/dL Magnesium (1.8-2.4) mg/dL Total Bilirubin (0.2-1.0) mg/dL AST (15-37) IU/L ALT (14-63) IU/L Alkaline Phosphatase (46-116) U/L Total Protein (6.4-8.2) g/dL Albumin (3.4-5.0) g/dL Globulin (2.6-4.0) g/dL Albumin/Globulin Ratio (0.9-1.6) Blood Type Antibody Screen 06/01/21 06/01/21 06/01/21 Range/Units 05:00 06:16 11:58 WBC (4.0-11.0) K/uL RBC (4.50-5.90) M/uL Hgb (13.0-17.0) g/dL Hct (38.0-50.0) % MCV (80.0-98.0) fL MCH (27.0-32.0) pg MCHC (31.0-37.0) g/dL RDW Std Deviation (28.0-62.0) fl RDW Coeff of Ortega (11.0-15.0) % Plt Count (150-400) K/uL MPV (7.40-12.00) fL Nucleated RBC % /100WBC Nucleated RBCs # K/uL Sodium 140 (136-148) mmol/L Potassium 4.0 (3.5-5.1) mmol/L Chloride 106 (98-107) mmol/L Carbon Dioxide 25.0 (21.0-32.0) mmol/L BUN 16 (7.0-18.0) mg/dL Creatinine 1.2 (0.8-1.3) mg/dL Est Cr Clr Drug Dosing 64.49 mL/min Estimated GFR (MDRD) > 60.0 ml/min Glucose 154 H (74-106) mg/dL POC Glucose 150 H 228 H (70-99) mg/dL Calcium 7.7 L (8.5-10.1) mg/dL Phosphorus 2.2 L (2.6-4.7) mg/dL Magnesium 2.1 (1.8-2.4) mg/dL Total Bilirubin 0.7 (0.2-1.0) mg/dL AST 28 (15-37) IU/L ALT 37 (14-63) IU/L Alkaline Phosphatase 99 (46-116) U/L Total Protein 6.0 L (6.4-8.2) g/dL Albumin 2.5 L (3.4-5.0) g/dL Globulin 3.5 (2.6-4.0) g/dL Albumin/Globulin Ratio 0.7 L (0.9-1.6) Blood Type Antibody Screen Marvin Results Last 24 Hours: Microbiology 05/30/21 19:03 Aerobic Blood Culture - Preliminary Blood - Venous - Lab Draw NO GROWTH AFTER 1 DAY Anaerobic Blood Culture - Preliminary NO GROWTH AFTER 1 DAY 05/30/21 19:03 Aerobic Blood Culture - Preliminary Blood - Venous NO GROWTH AFTER 1 DAY Anaerobic Blood Culture - Preliminary NO GROWTH AFTER 1 DAY Med Orders - Current: Current Medications Atorvastatin Calcium (Atorvastatin 40 Mg Tab) 40 mg PO BEDTIME ON LICENSE OF [facility] Last Admin: 05/31/21 20:45 Dose: 40 mg Documented by: Ciprofloxacin (Ciprofloxacin 500 Mg Tab) 500 mg PO BID ON LICENSE OF [facility] Last Admin: 06/01/21 12:36 Dose: 500 mg Documented by: Cyclobenzaprine HCl (Cyclobenzaprine 5 Mg Tab) 5 mg PO TID ON LICENSE OF [facility] Last Admin: 06/01/21 13:47 Dose: 5 mg Documented by: Dextrose/Water (50% Dextrose In Water 50 Ml Syringe) 50 ml IVPUSH ASDIRECTED PRN PRN Reason: Hypoglycemia Enoxaparin Sodium (Enoxaparin 40 Mg/0.4 Ml Syringe) 40 mg SUBCUT Q24H ON LICENSE OF [facility] Escitalopram Oxalate (Escitalopram 10 Mg Tab) 20 mg PO DAILY ON LICENSE OF [facility] Last Admin: 06/01/21 08:49 Dose: 20 mg Documented by: Glucagon (Glucagon,Human Recombinant 1 Mg Vial) 1 mg IM ASDIRECTED PRN PRN Reason: Hypoglycemia Insulin Aspart (Insulin Aspart 100 Units/Ml 3 Ml Pen) 0 unit SUBCUT Q6H ON LICENSE OF [facility]; Protocol Last Admin: 06/01/21 12:01 Dose: 2 unit Documented by: Ketorolac Tromethamine (Ketorolac 15 Mg/Ml Sdv) 15 mg IVPUSH Q6H ON LICENSE OF [facility] Stop: 06/01/21 15:01 Last Admin: 06/01/21 08:50 Dose: 15 mg Documented by: Metronidazole (Metronidazole 250 Mg Tab) 500 mg PO Q8H ON LICENSE OF [facility] Last Admin: 06/01/21 12:36 Dose: 500 mg Documented by: Oxycodone/Acetaminophen (Acetaminophen/Oxycodone 325-5 Mg Tab) 2 tab PO Q4H PRN PRN Reason: Pain (severe 7-10) Polyethylene Glycol (Polyethylene Glycol 3350 Powder 17 Gm Packet) 17 gm PO DAILY ON LICENSE OF [facility] Last Admin: 06/01/21 08:51 Dose: 17 gm Documented by: Sodium Chloride (Sodium Chloride 0.9% 2.5 Ml Syringe) 2.5 ml FLUSH ASDIRECTED PRN PRN Reason: Keep Vein Open Last Admin: 05/30/21 18:29 Dose: 2.5 ml Documented by: Sodium Chloride (Sodium Chloride 0.9% 10 Ml Syringe) 10 ml FLUSH ASDIRECTED PRN PRN Reason: Keep Vein Open Last Admin: 05/30/21 18:29 Dose: 10 ml Documented by: Discontinued Medications Albuterol (Albuterol 0.083% 2.5 Mg/3 Ml Neb Soln) 2.5 mg NEB ONETIME PRN PRN Reason: Wheezing Bupivacaine HCl (Bupivacaine 0.5% 30 Ml Sdv) Confirm Administered Dose 30 ml .ROUTE .[facility]-MED ONE Stop: 05/31/21 12:03 Bupivacaine HCl (Bupivacaine 0.5% 30 Ml Sdv) Confirm Administered Dose 120 ml .ROUTE .[facility]-MED ONE Stop: 05/31/21 14:06 Cefazolin Sodium (Cefazolin 1 Gm Vial) Confirm Administered Dose 1 gm .ROUTE .STK-MED ONE Stop: 05/31/21 13:22 Dexamethasone (Dexamethasone 4 Mg/Ml 5 Ml Mdv) Confirm Administered Dose 20 mg .ROUTE .STK-MED ONE Stop: 05/31/21 12:07 Droperidol (Droperidol 5 Mg/2 Ml Sdv) 0.625 mg IVPUSH ONETIME PRN PRN Reason: Nausea/Vomiting Enoxaparin Sodium (Enoxaparin 40 Mg/0.4 Ml Syringe) 40 mg SUBCUT Q24H [facility] Last Admin: 05/31/21 18:51 Dose: 40 mg Documented by: Fentanyl (Fentanyl 100 Mcg/2 Ml Sdv) 50 mcg IVPUSH Q5M PRN PRN Reason: Pain (mild 1-3) Fentanyl (Fentanyl 100 Mcg/2 Ml Sdv) Confirm Administered Dose 100 mcg .ROUTE .ST[facility]-MED ONE Stop: 05/31/21 12:06 Fentanyl (Fentanyl 100 Mcg/2 Ml Sdv) Confirm Administered Dose 100 mcg .ROUTE .STK-MED ONE Stop: 05/31/21 13:26 Hydromorphone HCl (Hydromorphone 2 Mg/Ml Syringe) 0.5 mg IVPUSH ONETIME ONE Stop: 05/30/21 18:36 Last Admin: 05/30/21 18:55 Dose: 0.5 mg Documented by: Hydromorphone HCl (Hydromorphone 2 Mg/Ml Syringe) 0.5 mg IVPUSH Q2H PRN PRN Reason: Pain (severe 7-10) Last Admin: 05/31/21 15:12 Dose: 0.5 mg Documented by: Hydromorphone HCl (Hydromorphone 2 Mg/Ml Syringe) 1 mg IVPUSH Q10M PRN PRN Reason: Pain (moderate 4-6) Last Admin: 05/31/21 15:20 Dose: 0.5 mg Documented by: Sodium Chloride (Normal Saline) 1,000 mls @ 999 mls/hr IV STAT ONE Stop: 05/30/21 19:24 Last Infusion: 05/30/21 19:17 Dose: Infused Documented by: Sodium Chloride (Normal Saline) 1,000 mls @ 999 mls/hr IV STAT ONE Stop: 05/30/21 20:02 Last Admin: 05/30/21 19:18 Dose: 999 mls/hr Documented by: Piperacillin Sod/Tazobactam (Sod 3.375 gm/ Sodium Chloride) 50 mls @ 100 mls/hr IV ONETIME ONE Stop: 05/30/21 22:35 Last Admin: 05/30/21 22:49 Dose: 100 mls/hr Documented by: Sodium Chloride (Normal Saline) 1,000 mls @ 125 mls/hr IV STAT ONE Stop: 05/31/21 06:15 Last Admin: 05/30/21 22:51 Dose: 125 mls/hr Documented by: Piperacillin Sod/Tazobactam (Sod 3.375 gm/ Sodium Chloride) 50 mls @ 100 mls/hr IV Q6H ON LICENSE OF [facility] Last Admin: 05/31/21 19:56 Dose: Not Given Documented by: Sodium Chloride (Normal Saline) 1,000 mls @ 125 mls/hr IV ASDIRECTED ON LICENSE OF [facility] Last Admin: 05/31/21 09:50 Dose: 125 mls/hr Documented by: Piperacillin Sod/Tazobactam (Sod 3.375 gm/ Sodium Chloride) 100 mls @ 200 mls/hr IV Q6H ON LICENSE OF [facility] Last Admin: 06/01/21 09:39 Dose: 200 mls/hr Documented by: Acetaminophen (Ofirmev 1000 Mg/100 Ml) Confirm Administered Dose 100 mls @ as directed .ROUTE .STK-MED ONE Stop: 05/31/21 12:53 Iopamidol (Iopamidol 755 Mg/Ml 100 Ml Bottle) 100 ml IVPUSH ONETIME ONE Stop: 05/30/21 20:52 Last Admin: 05/30/21 20:51 Dose: 100 ml Documented by: Ketorolac Tromethamine (Ketorolac 30 Mg/Ml Sdv) 30 mg IVPUSH ONETIME ONE Stop: 05/30/21 18:36 Last Admin: 05/30/21 18:56 Dose: 30 mg Documented by: Ketorolac Tromethamine (Ketorolac 30 Mg/Ml Sdv) Confirm Administered Dose 30 mg .ROUTE .STK-MED ONE Stop: 05/31/21 14:36 Lidocaine (Lidocaine 2% 5 Ml Sdv) Confirm Administered Dose 5 ml .ROUTE .[employer]-MED ONE Stop: 05/31/21 12:06 Metoclopramide HCl (Metoclopramide 10 Mg/2 Ml Sdv) 10 mg IVPUSH ONETIME PRN PRN Reason: Nausea/Vomiting Midazolam HCl (Midazolam 1 Mg/Ml 2 Ml Sdv) Confirm Administered Dose 2 mg .ROUTE .[employer]-MED ONE Stop: 05/31/21 12:06 Morphine Sulfate (Morphine 2 Mg/Ml Syringe) 2 mg IVPUSH Q10M PRN PRN Reason: Pain (severe 7-10) Naloxone HCl (Naloxone 0.4 Mg/Ml Syringe) 0.1 mg IVPUSH ASDIRECTED PRN PRN Reason: Respiratory Depression Octyl Cyanoacrylate (Octyl 2-Cyanoacrylate 1 Tube) Confirm Administered Dose 1 applic .ROUTE .[employer] ONE Stop: 05/31/21 12:04 Ondansetron HCl (Ondansetron 4 Mg/2 Ml Sdv) 4 mg IVPUSH ONETIME ONE Stop: 05/30/21 18:36 Last Admin: 05/30/21 18:57 Dose: 4 mg Documented by: Ondansetron HCl (Ondansetron 4 Mg/2 Ml Sdv) 4 mg IVPUSH Q4H PRN PRN Reason: Nausea Ondansetron HCl (Ondansetron 4 Mg/2 Ml Sdv) 4 mg IVPUSH ONETIME PRN PRN Reason: Nausea/Vomiting Ondansetron HCl (Ondansetron 4 Mg/2 Ml Sdv) Confirm Administered Dose 4 mg .ROUTE .[employer]-MED ONE Stop: 05/31/21 12:07 Propofol (Propofol 200 Mg/20 Ml Sdv) Confirm Administered Dose 200 mg .ROUTE .[employer] ONE Stop: 05/31/21 12:06 Rocuronium Ruth (Rocuronium Ruth 50 Mg/5 Ml Syringe) Confirm Administered Dose 50 mg .ROUTE .[employer]-MED ONE Stop: 05/31/21 12:06 Rocuronium Ruth (Rocuronium Ruth 50 Mg/5 Ml Syringe) Confirm Administered Dose 50 mg .ROUTE .[employer]-MED ONE Stop: 05/31/21 13:51 Sugammadex Sodium (Sugammadex Sodium 200 Mg/2 Ml Vial) Confirm Administered Dose 200 mg .ROUTE .[employer] ONE Stop: 05/31/21 14:35 - Exam Urinary Catheter Total Time: 0Days 23Hours General: Alert, Oriented, Cooperative, No Acute Distress HEENT: Pupils Reactive Neck: Supple Lungs: Clear to Auscultation, Normal Respiratory Effort. No: Crackles, Rales Cardiovascular: Regular Rate, Regular Rhythm, No Murmurs GI/Abdominal Exam: No Distention, Other (Surgical incision is clean dry and intact. Patient has MAURICE drain in place.) Extremities: Normal Inspection, Non-Tender, No Pedal Edema. No: Del's Sign Peripheral Pulses: 2+: Dorsalis Pedis (L), Dorsalis Pedis (R) - Patient Data Lab Results Last 24 hrs: Laboratory Results - last 24 hr 05/31/21 05/31/21 05/31/21 Range/Units 13:44 13:44 13:44 WBC 19.59 H (4.0-11.0) K/uL RBC 4.39 L (4.50-5.90) M/uL Hgb 12.9 L (13.0-17.0) g/dL Hct 38.0 (38.0-50.0) % MCV 86.6 (80.0-98.0) fL MCH 29.4 (27.0-32.0) pg MCHC 33.9 (31.0-37.0) g/dL RDW Std Deviation 49.2 (28.0-62.0) fl RDW Coeff of Ortega 16 H (11.0-15.0) % Plt Count 223 (150-400) K/uL MPV 9.60 (7.40-12.00) fL Nucleated RBC % 0.0 /100WBC Nucleated RBCs # 0 K/uL Sodium 138 (136-148) mmol/L Potassium 4.1 (3.5-5.1) mmol/L Chloride 108 H (98-107) mmol/L Carbon Dioxide 19.0 L (21.0-32.0) mmol/L BUN 11 (7.0-18.0) mg/dL Creatinine 0.9 (0.8-1.3) mg/dL Est Cr Clr Drug Dosing 85.99 mL/min Estimated GFR (MDRD) > 60.0 ml/min Glucose 106 (74-106) mg/dL POC Glucose (70-99) mg/dL Calcium 7.2 L (8.5-10.1) mg/dL Phosphorus (2.6-4.7) mg/dL Magnesium (1.8-2.4) mg/dL Total Bilirubin (0.2-1.0) mg/dL AST (15-37) IU/L ALT (14-63) IU/L Alkaline Phosphatase (46-116) U/L Total Protein (6.4-8.2) g/dL Albumin (3.4-5.0) g/dL Globulin (2.6-4.0) g/dL Albumin/Globulin Ratio (0.9-1.6) Blood Type O POSITIVE Antibody Screen NEGATIVE 05/31/21 06/01/21 06/01/21 Range/Units 17:39 00:03 05:00 WBC 16.16 H (4.0-11.0) K/uL RBC 4.25 L (4.50-5.90) M/uL Hgb 12.3 L (13.0-17.0) g/dL Hct 36.8 L (38.0-50.0) % MCV 86.6 (80.0-98.0) fL MCH 28.9 (27.0-32.0) pg MCHC 33.4 (31.0-37.0) g/dL RDW Std Deviation 49.4 (28.0-62.0) fl RDW Coeff of Ortega 16 H (11.0-15.0) % Plt Count 245 (150-400) K/uL MPV 10.30 (7.40-12.00) fL Nucleated RBC % 0.0 /100WBC Nucleated RBCs # 0 K/uL Sodium (136-148) mmol/L Potassium (3.5-5.1) mmol/L Chloride (98-107) mmol/L Carbon Dioxide (21.0-32.0) mmol/L BUN (7.0-18.0) mg/dL Creatinine (0.8-1.3) mg/dL Est Cr Clr Drug Dosing mL/min Estimated GFR (MDRD) ml/min Glucose (74-106) mg/dL POC Glucose 148 H 176 H (70-99) mg/dL Calcium (8.5-10.1) mg/dL Phosphorus (2.6-4.7) mg/dL Magnesium (1.8-2.4) mg/dL Total Bilirubin (0.2-1.0) mg/dL AST (15-37) IU/L ALT (14-63) IU/L Alkaline Phosphatase (46-116) U/L Total Protein (6.4-8.2) g/dL Albumin (3.4-5.0) g/dL Globulin (2.6-4.0) g/dL Albumin/Globulin Ratio (0.9-1.6) Blood Type Antibody Screen 06/01/21 06/01/21 06/01/21 Range/Units 05:00 06:16 11:58 WBC (4.0-11.0) K/uL RBC (4.50-5.90) M/uL Hgb (13.0-17.0) g/dL Hct (38.0-50.0) % MCV (80.0-98.0) fL MCH (27.0-32.0) pg MCHC (31.0-37.0) g/dL RDW Std Deviation (28.0-62.0) fl RDW Coeff of Ortega (11.0-15.0) % Plt Count (150-400) K/uL MPV (7.40-12.00) fL Nucleated RBC % /100WBC Nucleated RBCs # K/uL Sodium 140 (136-148) mmol/L Potassium 4.0 (3.5-5.1) mmol/L Chloride 106 (98-107) mmol/L Carbon Dioxide 25.0 (21.0-32.0) mmol/L BUN 16 (7.0-18.0) mg/dL Creatinine 1.2 (0.8-1.3) mg/dL Est Cr Clr Drug Dosing 64.49 mL/min Estimated GFR (MDRD) > 60.0 ml/min Glucose 154 H (74-106) mg/dL POC Glucose 150 H 228 H (70-99) mg/dL Calcium 7.7 L (8.5-10.1) mg/dL Phosphorus 2.2 L (2.6-4.7) mg/dL Magnesium 2.1 (1.8-2.4) mg/dL Total Bilirubin 0.7 (0.2-1.0) mg/dL AST 28 (15-37) IU/L ALT 37 (14-63) IU/L Alkaline Phosphatase 99 (46-116) U/L Total Protein 6.0 L (6.4-8.2) g/dL Albumin 2.5 L (3.4-5.0) g/dL Globulin 3.5 (2.6-4.0) g/dL Albumin/Globulin Ratio 0.7 L (0.9-1.6) Blood Type Antibody Screen Result Diagrams: 06/01/21 05:00 06/01/21 05:00 Marvin Results Last 24 hrs: Microbiology 05/30/21 19:03 Aerobic Blood Culture - Preliminary Blood - Venous - Lab Draw NO GROWTH AFTER 1 DAY Anaerobic Blood Culture - Preliminary NO GROWTH AFTER 1 DAY 05/30/21 19:03 Aerobic Blood Culture - Preliminary Blood - Venous NO GROWTH AFTER 1 DAY Anaerobic Blood Culture - Preliminary NO GROWTH AFTER 1 DAY Sepsis Event Note - Evaluation Sepsis Screening Result: No Definite Risk - Focused Exam Vital Signs: Vital Signs Temp Pulse Resp BP Pulse Ox 06/01/21 12:00 96.1 F L 56 L 16 129/75 92 L 06/01/21 08:00 95.4 F L 62 16 123/73 94 L 06/01/21 04:00 97.7 F 64 19 125/65 95 - Problem List & Annotations (1) Acute cholecystitis SNOMED Code(s): 20204545 Code(s): K81.0 - ACUTE CHOLECYSTITIS Status: Acute Current Visit: Yes - Problem List Review Problem List Initiated/Reviewed/Updated: Yes - My Orders Last 24 Hours: My Active Orders 05/31/21 21:00 atorvaSTATin [Lipitor] 40 mg PO BEDTIME 06/01/21 09:00 Escitalopram [Lexapro] 20 mg PO DAILY 06/01/21 12:30 metroNIDAZOLE 500 mg PO Q8H 06/01/21 13:00 Ciprofloxacin [Ciprofloxacin HCl] 500 mg PO BID 06/01/21 18:00 Enoxaparin [Lovenox] 40 mg SUBCUT Q24H - Plan Plan:: 65-year-old male admitted for acute cholecystitis and is postop day 1 for cholecystectomy. Patient tolerated procedure well and denies abdominal pain. As per surgery, patient will be advanced to a regular diet at lunch today. We will start the patient on Lovenox 40 mg daily. We will switch the patient to p.o. ciprofloxacin and Flagyl. Patient is on a sliding scale for hyperglycemia. Blood cultures were negative. Patient likely to be discharged tomorrow.
[2021-06-01] MEDS: Enoxaparin 40 MG/0.4 ML Syringe SUBCUT SCH (18:27)
[2021-06-01] MEDS: Acetaminophen/oxyCODONE 325-5 MG Tab PO PRN (20:58)
[2021-06-01] MEDS: atorvaSTATin 40 MG Tab PO SCH (21:00)
[2021-06-02] MEDS: Cyclobenzaprine 5 MG Tab PO SCH ×3 (05:07→21:40)
[2021-06-02] MEDS: metroNIDAZOLE 250 MG Tab PO SCH ×3 (05:07→20:37)
[2021-06-02] MEDS: Pantoprazole 40 MG Tab.CR PO SCH (06:47)
[2021-06-02] MEDS: Insulin Aspart 100 Units/ML 3 ML Pen SUBCUT SCH ×3 (07:01→17:21)
[2021-06-02 07:20] LABS: CARBON DIOXIDE,CO2 25.4 mmol/L (21.0-32.0); POTASSIUM,K 3.9 mmol/L (3.5-5.1)
[2021-06-02] MEDS: Escitalopram 10 MG Tab PO SCH (08:33)
[2021-06-02] MEDS: Ciprofloxacin 500 MG Tab PO SCH ×2 (08:34→20:37)
[2021-06-02] MEDS: Polyethylene Glycol 3350 Powder 17 GM Packet PO SCH (08:34)
--- NOTE | 2021-06-02 11:52 | PCM.SURGPN ---
- General Info Date of Service: 06/02/21 Date of Surgery/Procedure: 05/31/21 POD#: 2 Functional Status: Reports: Pain Controlled, Tolerating Diet, Ambulating, Urinating. Denies: New Symptoms - Review of Systems General: Reports: No Symptoms HEENT: Reports: No Symptoms Pulmonary: Reports: No Symptoms Cardiovascular: Reports: No Symptoms Gastrointestinal: Reports: No Symptoms Genitourinary: Reports: No Symptoms Musculoskeletal: Reports: No Symptoms Skin: Reports: No Symptoms - Patient Data Vitals - Most Recent: Last Vital Signs Temp 35.4 C L 06/02/21 07:55 Pulse 69 06/02/21 07:55 Resp 22 H 06/02/21 07:55 BP 147/93 H 06/02/21 07:55 Pulse Ox 92 L 06/02/21 07:55 Weight - Most Recent: 102.603 kg I&O - Last 24 Hours: Intake & Output 06/01/21 06/02/21 06/02/21 22:59 06:59 14:59 Intake Total 200 420 Output Total 530 580 Balance -330 -160 Lab Results Last 24 Hrs: Laboratory Results - last 24 hr 06/01/21 06/01/21 06/02/21 Range/Units 11:58 17:29 06:20 WBC 12.07 H (4.0-11.0) K/uL RBC 4.31 L (4.50-5.90) M/uL Hgb 12.3 L (13.0-17.0) g/dL Hct 37.1 L (38.0-50.0) % MCV 86.1 (80.0-98.0) fL MCH 28.5 (27.0-32.0) pg MCHC 33.2 (31.0-37.0) g/dL RDW Std Deviation 48.7 (28.0-62.0) fl RDW Coeff of Ortega 15 (11.0-15.0) % Plt Count 300 (150-400) K/uL MPV 10.30 (7.40-12.00) fL Nucleated RBC % 0.0 /100WBC Nucleated RBCs # 0 K/uL Sodium (136-148) mmol/L Potassium (3.5-5.1) mmol/L Chloride (98-107) mmol/L Carbon Dioxide (21.0-32.0) mmol/L BUN (7.0-18.0) mg/dL Creatinine (0.8-1.3) mg/dL Est Cr Clr Drug Dosing mL/min Estimated GFR (MDRD) ml/min Glucose (74-106) mg/dL POC Glucose 228 H 146 H (70-99) mg/dL Calcium (8.5-10.1) mg/dL Total Bilirubin (0.2-1.0) mg/dL AST (15-37) IU/L ALT (14-63) IU/L Alkaline Phosphatase (46-116) U/L Total Protein (6.4-8.2) g/dL Albumin (3.4-5.0) g/dL Globulin (2.6-4.0) g/dL Albumin/Globulin Ratio (0.9-1.6) 06/02/21 06/02/21 Range/Units 06:20 06:46 WBC (4.0-11.0) K/uL RBC (4.50-5.90) M/uL Hgb (13.0-17.0) g/dL Hct (38.0-50.0) % MCV (80.0-98.0) fL MCH (27.0-32.0) pg MCHC (31.0-37.0) g/dL RDW Std Deviation (28.0-62.0) fl RDW Coeff of Ortega (11.0-15.0) % Plt Count (150-400) K/uL MPV (7.40-12.00) fL Nucleated RBC % /100WBC Nucleated RBCs # K/uL Sodium 141 (136-148) mmol/L Potassium 3.9 (3.5-5.1) mmol/L Chloride 108 H (98-107) mmol/L Carbon Dioxide 25.4 (21.0-32.0) mmol/L BUN 27 H (7.0-18.0) mg/dL Creatinine 1.3 (0.8-1.3) mg/dL Est Cr Clr Drug Dosing 59.53 mL/min Estimated GFR (MDRD) 55.2 ml/min Glucose 118 H (74-106) mg/dL POC Glucose 111 H (70-99) mg/dL Calcium 7.8 L (8.5-10.1) mg/dL Total Bilirubin 0.5 (0.2-1.0) mg/dL AST 27 (15-37) IU/L ALT 43 (14-63) IU/L Alkaline Phosphatase 98 (46-116) U/L Total Protein 6.0 L (6.4-8.2) g/dL Albumin 2.6 L (3.4-5.0) g/dL Globulin 3.4 (2.6-4.0) g/dL Albumin/Globulin Ratio 0.8 L (0.9-1.6) Marvin Results Last 24 Hrs: Microbiology 05/30/21 19:03 Aerobic Blood Culture - Preliminary Blood - Venous - Lab Draw NO GROWTH AFTER 2 DAYS Anaerobic Blood Culture - Preliminary NO GROWTH AFTER 2 DAYS 05/30/21 19:03 Aerobic Blood Culture - Preliminary Blood - Venous NO GROWTH AFTER 2 DAYS Anaerobic Blood Culture - Preliminary NO GROWTH AFTER 2 DAYS Med Orders - Current: Current Medications Atorvastatin Calcium (Atorvastatin 40 Mg Tab) 40 mg PO BEDTIME [facility] Last Admin: 06/01/21 21:00 Dose: 40 mg Documented by: Ciprofloxacin (Ciprofloxacin 500 Mg Tab) 500 mg PO BID [facility] Last Admin: 06/02/21 08:34 Dose: 500 mg Documented by: Cyclobenzaprine HCl (Cyclobenzaprine 5 Mg Tab) 5 mg PO TID [facility] Last Admin: 06/02/21 05:07 Dose: 5 mg Documented by: Dextrose/Water (50% Dextrose In Water 50 Ml Syringe) 50 ml IVPUSH ASDIRECTED PRN PRN Reason: Hypoglycemia Enoxaparin Sodium (Enoxaparin 40 Mg/0.4 Ml Syringe) 40 mg SUBCUT Q24H [facility] Last Admin: 06/01/21 18:27 Dose: 40 mg Documented by: Escitalopram Oxalate (Escitalopram 10 Mg Tab) 20 mg PO DAILY [facility] Last Admin: 06/02/21 08:33 Dose: 20 mg Documented by: Glucagon (Glucagon,Human Recombinant 1 Mg Vial) 1 mg IM ASDIRECTED PRN PRN Reason: Hypoglycemia Insulin Aspart (Insulin Aspart 100 Units/Ml 3 Ml Pen) 0 unit SUBCUT TIDAC [facility]; Protocol Last Admin: 06/02/21 07:01 Dose: Not Given Documented by: Metronidazole (Metronidazole 250 Mg Tab) 500 mg PO Q8H [facility] Last Admin: 06/02/21 05:07 Dose: 500 mg Documented by: Oxycodone/Acetaminophen (Acetaminophen/Oxycodone 325-5 Mg Tab) 2 tab PO Q4H PRN PRN Reason: Pain (severe 7-10) Last Admin: 06/01/21 20:58 Dose: 2 tab Documented by: Pantoprazole Sodium (Pantoprazole 40 Mg Tab.Cr) 40 mg PO ACBREAKFAST [facility] Last Admin: 06/02/21 06:47 Dose: 40 mg Documented by: Polyethylene Glycol (Polyethylene Glycol 3350 Powder 17 Gm Packet) 17 gm PO DAILY [facility] Last Admin: 06/02/21 08:34 Dose: 17 gm Documented by: Sodium Chloride (Sodium Chloride 0.9% 2.5 Ml Syringe) 2.5 ml FLUSH ASDIRECTED PRN PRN Reason: Keep Vein Open Last Admin: 05/30/21 18:29 Dose: 2.5 ml Documented by: Sodium Chloride (Sodium Chloride 0.9% 10 Ml Syringe) 10 ml FLUSH ASDIRECTED PRN PRN Reason: Keep Vein Open Last Admin: 05/30/21 18:29 Dose: 10 ml Documented by: Discontinued Medications Albuterol (Albuterol 0.083% 2.5 Mg/3 Ml Neb Soln) 2.5 mg NEB ONETIME PRN PRN Reason: Wheezing Bupivacaine HCl (Bupivacaine 0.5% 30 Ml Sdv) Confirm Administered Dose 30 ml .ROUTE .STK-MED ONE Stop: 05/31/21 12:03 Bupivacaine HCl (Bupivacaine 0.5% 30 Ml Sdv) Confirm Administered Dose 120 ml .ROUTE .STK-MED ONE Stop: 05/31/21 14:06 Cefazolin Sodium (Cefazolin 1 Gm Vial) Confirm Administered Dose 1 gm .ROUTE .STK-MED ONE Stop: 05/31/21 13:22 Dexamethasone (Dexamethasone 4 Mg/Ml 5 Ml Mdv) Confirm Administered Dose 20 mg .ROUTE .STK-MED ONE Stop: 05/31/21 12:07 Droperidol (Droperidol 5 Mg/2 Ml Sdv) 0.625 mg IVPUSH ONETIME PRN PRN Reason: Nausea/Vomiting Enoxaparin Sodium (Enoxaparin 40 Mg/0.4 Ml Syringe) 40 mg SUBCUT Q24H [facility] Last Admin: 05/31/21 18:51 Dose: 40 mg Documented by: Fentanyl (Fentanyl 100 Mcg/2 Ml Sdv) 50 mcg IVPUSH Q5M PRN PRN Reason: Pain (mild 1-3) Fentanyl (Fentanyl 100 Mcg/2 Ml Sdv) Confirm Administered Dose 100 mcg .ROUTE .STK-MED ONE Stop: 05/31/21 12:06 Fentanyl (Fentanyl 100 Mcg/2 Ml Sdv) Confirm Administered Dose 100 mcg .ROUTE .STK-MED ONE Stop: 05/31/21 13:26 Hydromorphone HCl (Hydromorphone 2 Mg/Ml Syringe) 0.5 mg IVPUSH ONETIME ONE Stop: 05/30/21 18:36 Last Admin: 05/30/21 18:55 Dose: 0.5 mg Documented by: Hydromorphone HCl (Hydromorphone 2 Mg/Ml Syringe) 0.5 mg IVPUSH Q2H PRN PRN Reason: Pain (severe 7-10) Last Admin: 05/31/21 15:12 Dose: 0.5 mg Documented by: Hydromorphone HCl (Hydromorphone 2 Mg/Ml Syringe) 1 mg IVPUSH Q10M PRN PRN Reason: Pain (moderate 4-6) Last Admin: 05/31/21 15:20 Dose: 0.5 mg Documented by: Sodium Chloride (Normal Saline) 1,000 mls @ 999 mls/hr IV STAT ONE Stop: 05/30/21 19:24 Last Infusion: 05/30/21 19:17 Dose: Infused Documented by: Sodium Chloride (Normal Saline) 1,000 mls @ 999 mls/hr IV STAT ONE Stop: 05/30/21 20:02 Last Admin: 05/30/21 19:18 Dose: 999 mls/hr Documented by: Piperacillin Sod/Tazobactam (Sod 3.375 gm/ Sodium Chloride) 50 mls @ 100 mls/hr IV ONETIME ONE Stop: 05/30/21 22:35 Last Admin: 05/30/21 22:49 Dose: 100 mls/hr Documented by: Sodium Chloride (Normal Saline) 1,000 mls @ 125 mls/hr IV STAT ONE Stop: 05/31/21 06:15 Last Admin: 05/30/21 22:51 Dose: 125 mls/hr Documented by: Piperacillin Sod/Tazobactam (Sod 3.375 gm/ Sodium Chloride) 50 mls @ 100 mls/hr IV Q6H [facility] Last Admin: 05/31/21 19:56 Dose: Not Given Documented by: Sodium Chloride (Normal Saline) 1,000 mls @ 125 mls/hr IV ASDIRECTED [facility] Last Admin: 05/31/21 09:50 Dose: 125 mls/hr Documented by: Piperacillin Sod/Tazobactam (Sod 3.375 gm/ Sodium Chloride) 100 mls @ 200 mls/hr IV Q6H [facility] Last Admin: 06/01/21 09:39 Dose: 200 mls/hr Documented by: Acetaminophen (Ofirmev 1000 Mg/100 Ml) Confirm Administered Dose 100 mls @ as directed .ROUTE .STK-MED ONE Stop: 05/31/21 12:53 Insulin Aspart (Insulin Aspart 100 Units/Ml 3 Ml Pen) 0 unit SUBCUT Q6H [facility]; Protocol Last Admin: 06/01/21 23:50 Dose: Not Given Documented by: Iopamidol (Iopamidol 755 Mg/Ml 100 Ml Bottle) 100 ml IVPUSH ONETIME ONE Stop: 05/30/21 20:52 Last Admin: 05/30/21 20:51 Dose: 100 ml Documented by: Ketorolac Tromethamine (Ketorolac 30 Mg/Ml Sdv) 30 mg IVPUSH ONETIME ONE Stop: 05/30/21 18:36 Last Admin: 05/30/21 18:56 Dose: 30 mg Documented by: Ketorolac Tromethamine (Ketorolac 30 Mg/Ml Sdv) Confirm Administered Dose 30 mg .ROUTE .STK-MED ONE Stop: 05/31/21 14:36 Ketorolac Tromethamine (Ketorolac 15 Mg/Ml Sdv) 15 mg IVPUSH Q6H [facility] Stop: 06/01/21 15:01 Last Admin: 06/01/21 14:58 Dose: 15 mg Documented by: Lidocaine (Lidocaine 2% 5 Ml Sdv) Confirm Administered Dose 5 ml .ROUTE .STK-MED ONE Stop: 05/31/21 12:06 Metoclopramide HCl (Metoclopramide 10 Mg/2 Ml Sdv) 10 mg IVPUSH ONETIME PRN PRN Reason: Nausea/Vomiting Midazolam HCl (Midazolam 1 Mg/Ml 2 Ml Sdv) Confirm Administered Dose 2 mg .ROUTE .STK-MED ONE Stop: 05/31/21 12:06 Morphine Sulfate (Morphine 2 Mg/Ml Syringe) 2 mg IVPUSH Q10M PRN PRN Reason: Pain (severe 7-10) Naloxone HCl (Naloxone 0.4 Mg/Ml Syringe) 0.1 mg IVPUSH ASDIRECTED PRN PRN Reason: Respiratory Depression Octyl Cyanoacrylate (Octyl 2-Cyanoacrylate 1 Tube) Confirm Administered Dose 1 applic .ROUTE .STK-MED ONE Stop: 05/31/21 12:04 Ondansetron HCl (Ondansetron 4 Mg/2 Ml Sdv) 4 mg IVPUSH ONETIME ONE Stop: 05/30/21 18:36 Last Admin: 05/30/21 18:57 Dose: 4 mg Documented by: Ondansetron HCl (Ondansetron 4 Mg/2 Ml Sdv) 4 mg IVPUSH Q4H PRN PRN Reason: Nausea Ondansetron HCl (Ondansetron 4 Mg/2 Ml Sdv) 4 mg IVPUSH ONETIME PRN PRN Reason: Nausea/Vomiting Ondansetron HCl (Ondansetron 4 Mg/2 Ml Sdv) Confirm Administered Dose 4 mg .ROUTE .STK-MED ONE Stop: 05/31/21 12:07 Propofol (Propofol 200 Mg/20 Ml Sdv) Confirm Administered Dose 200 mg .ROUTE .STK-MED ONE Stop: 05/31/21 12:06 Rocuronium [place] (Rocuronium [place] 50 Mg/5 Ml Syringe) Confirm Administered Dose 50 mg .ROUTE .STK-MED ONE Stop: 05/31/21 12:06 Rocuronium [place] (Rocuronium [place] 50 Mg/5 Ml Syringe) Confirm Administered Dose 50 mg .ROUTE .STK-MED ONE Stop: 05/31/21 13:51 Sugammadex Sodium (Sugammadex Sodium 200 Mg/2 Ml Vial) Confirm Administered Dose 200 mg .ROUTE .STK-MED ONE Stop: 05/31/21 14:35 - Exam Wound/Incisions: Healing Well, Dressing Dry and Intact HEENT: Pupils Equal, Pupils Reactive Lungs: Normal Respiratory Effort Cardiovascular: Regular Rate GI/Abdominal Exam: Soft, Non-Tender, No Distention Skin: Warm, Dry, Intact Sepsis Event Note - Evaluation Sepsis Screening Result: No Definite Risk - Focused Exam Vital Signs: Vital Signs Temp Pulse Resp BP Pulse Ox 06/02/21 07:55 35.4 C L 69 22 H 147/93 H 92 L 06/02/21 04:00 36.5 C 62 18 132/68 94 L 06/02/21 00:00 36.7 C 58 L 18 125/68 93 L - Problem List & Annotations (1) Acute cholecystitis SNOMED Code(s): 79990721 Code(s): K81.0 - ACUTE CHOLECYSTITIS Status: Acute Current Visit: Yes (2) Sepsis SNOMED Code(s): 49702511 Code(s): A41.9 - SEPSIS, UNSPECIFIED ORGANISM Status: Acute Current Visit: Yes Qualifiers: Sepsis type: sepsis due to unspecified organism Sepsis acute organ dysfunction status: without acute organ dysfunction Qualified Code(s): A41.9 - Sepsis, unspecified organism - Problem List Review Problem List Initiated/Reviewed/Updated: Yes - My Orders Last 24 Hours: Active Orders 24 hr Category Date Time Status Accu Check [Blood Glucose Check, Bedside] [RC] TIDAC Care 06/02/21 07:30 Active Activity as Tolerated [RC] .Routine Care 06/01/21 11:46 Active Regular Diet [DIET] Diet 06/01/21 Lunch Active Ciprofloxacin [Ciprofloxacin HCl] Med 06/01/21 13:00 Active 500 mg PO BID Enoxaparin [Lovenox] Med 06/01/21 18:00 Active 40 mg SUBCUT Q24H Insulin Aspart [NovoLOG] Med 06/02/21 07:30 Active See Protocol SUBCUT TIDAC Pantoprazole [ProTONIX] Med 06/02/21 07:30 Active 40 mg PO ACBREAKFAST metroNIDAZOLE Med 06/01/21 12:30 Active 500 mg PO Q8H Medication Orders Atorvastatin Calcium (Atorvastatin 40 Mg Tab) 40 mg PO BEDTIME [facility] Last Admin: 06/01/21 21:00 Dose: 40 mg Documented by: Admin: 05/31/21 20:45 Dose: 40 mg Documented by: XENIA Ciprofloxacin (Ciprofloxacin 500 Mg Tab) 500 mg PO BID [facility] Last Admin: 06/02/21 08:34 Dose: 500 mg Documented by: Admin: 06/01/21 21:00 Dose: 500 mg Documented by: Admin: 06/01/21 12:36 Dose: 500 mg Documented by: BENITO Cyclobenzaprine HCl (Cyclobenzaprine 5 Mg Tab) 5 mg PO TID [facility] Last Admin: 06/02/21 05:07 Dose: 5 mg Documented by: Admin: 06/01/21 21:00 Dose: 5 mg Documented by: Admin: 06/01/21 13:47 Dose: 5 mg Documented by: Admin: 06/01/21 06:19 Dose: 5 mg Documented by: Admin: 05/31/21 23:04 Dose: 5 mg Documented by: XENIA Dextrose/Water (50% Dextrose In Water 50 Ml Syringe) 50 ml IVPUSH ASDIRECTED PRN PRN Reason: Hypoglycemia Enoxaparin Sodium (Enoxaparin 40 Mg/0.4 Ml Syringe) 40 mg SUBCUT Q24H [facility] Last Admin: 06/01/21 18:27 Dose: 40 mg Documented by: BENITO Escitalopram Oxalate (Escitalopram 10 Mg Tab) 20 mg PO DAILY [facility] Last Admin: 06/02/21 08:33 Dose: 20 mg Documented by: Admin: 06/01/21 08:49 Dose: 20 mg Documented by: BENITO Glucagon (Glucagon,Human Recombinant 1 Mg Vial) 1 mg IM ASDIRECTED PRN PRN Reason: Hypoglycemia Insulin Aspart (Insulin Aspart 100 Units/Ml 3 Ml Pen) 0 unit SUBCUT TIDAC [facility]; Protocol Last Admin: 06/02/21 07:01 Dose: Not Given Documented by: XENIA Metronidazole (Metronidazole 250 Mg Tab) 500 mg PO Q8H [facility] Last Admin: 06/02/21 05:07 Dose: 500 mg Documented by: Admin: 06/01/21 20:59 Dose: 500 mg Documented by: Admin: 06/01/21 12:36 Dose: 500 mg Documented by: BENITO Oxycodone/Acetaminophen (Acetaminophen/Oxycodone 325-5 Mg Tab) 2 tab PO Q4H PRN PRN Reason: Pain (severe 7-10) Last Admin: 06/01/21 20:58 Dose: 2 tab Documented by: XENIA Pantoprazole Sodium (Pantoprazole 40 Mg Tab.Cr) 40 mg PO ACBREAKFAST [facility] Last Admin: 06/02/21 06:47 Dose: 40 mg Documented by: XENIA Polyethylene Glycol (Polyethylene Glycol 3350 Powder 17 Gm Packet) 17 gm PO DAILY [facility] Last Admin: 06/02/21 08:34 Dose: 17 gm Documented by: Admin: 06/01/21 08:51 Dose: 17 gm Documented by: BENITO Sodium Chloride (Sodium Chloride 0.9% 2.5 Ml Syringe) 2.5 ml FLUSH ASDIRECTED PRN PRN Reason: Keep Vein Open Last Admin: 05/30/21 18:29 Dose: 2.5 ml Documented by: ERNST Sodium Chloride (Sodium Chloride 0.9% 10 Ml Syringe) 10 ml FLUSH ASDIRECTED PRN PRN Reason: Keep Vein Open Last Admin: 05/30/21 18:29 Dose: 10 ml Documented by: ERNST - Plan Plan (Free Text/Narrative):: Drain removed today. OnQ pump will come out tomorrow. Ok to shower after that. Incisions appear to be healing well. WBC improving, but still elevated. D/C home likely tomorrow morning.
--- NOTE | 2021-06-02 12:22 | PCM.PN ---
- General Info Date of Service: 06/02/21 Admission Dx/Problem (Free Text): Admission Diagnosis/Problem Admission Diagnosis/Problem Acute cholecystitis Subjective Update: 65-year-old male with a history of diabetes mellitus and hypertension is postop day 2 for cholecystectomy done for acute cholecystitis. Patient has been up and walking around. Patient had a bowel movement. Patient's pain is well controlled. Patient complains of mild pain with movement. Patient is tolerating diet and denies diarrhea, nausea, vomiting or abdominal pain. Patient denies fever, chills, chest pain, palpitations or leg pain. Patient is tolerating ciprofloxacin and Flagyl. As per surgery patient will likely be discharged tomorrow. - Review of Systems General: Denies: Fever, Chills HEENT: Reports: No Symptoms Pulmonary: Denies: Shortness of Breath, Pleuritic Chest Pain, Cough Cardiovascular: Denies: Chest Pain, Palpitations, Edema Gastrointestinal: Reports: Abdominal Pain. Denies: Constipation, Decreased Appetite, Diarrhea, Difficulty Swallowing, Hematochezia, Melena, Nausea, Vomiting Genitourinary: Denies: Dysuria, Hematuria, Flank Pain Musculoskeletal: Reports: No Symptoms - Patient Data Vitals - Most Recent: Last Vital Signs Temp 97.0 F 06/02/21 11:00 Pulse 62 06/02/21 11:00 Resp 18 06/02/21 11:00 BP 156/93 H 06/02/21 11:00 Pulse Ox 92 L 06/02/21 11:00 Weight - Most Recent: 226 lb 3.2 oz I&O - Last 24 Hours: Intake & Output 06/01/21 06/02/21 06/02/21 22:59 06:59 14:59 Intake Total 200 420 Output Total 530 580 Balance -330 -160 Lab Results Last 24 Hours: Laboratory Results - last 24 hr 06/01/21 06/02/21 06/02/21 Range/Units 17:29 06:20 06:20 WBC 12.07 H (4.0-11.0) K/uL RBC 4.31 L (4.50-5.90) M/uL Hgb 12.3 L (13.0-17.0) g/dL Hct 37.1 L (38.0-50.0) % MCV 86.1 (80.0-98.0) fL MCH 28.5 (27.0-32.0) pg MCHC 33.2 (31.0-37.0) g/dL RDW Std Deviation 48.7 (28.0-62.0) fl RDW Coeff of Ortega 15 (11.0-15.0) % Plt Count 300 (150-400) K/uL MPV 10.30 (7.40-12.00) fL Nucleated RBC % 0.0 /100WBC Nucleated RBCs # 0 K/uL Sodium 141 (136-148) mmol/L Potassium 3.9 (3.5-5.1) mmol/L Chloride 108 H (98-107) mmol/L Carbon Dioxide 25.4 (21.0-32.0) mmol/L BUN 27 H (7.0-18.0) mg/dL Creatinine 1.3 (0.8-1.3) mg/dL Est Cr Clr Drug Dosing 59.53 mL/min Estimated GFR (MDRD) 55.2 ml/min Glucose 118 H (74-106) mg/dL POC Glucose 146 H (70-99) mg/dL Calcium 7.8 L (8.5-10.1) mg/dL Total Bilirubin 0.5 (0.2-1.0) mg/dL AST 27 (15-37) IU/L ALT 43 (14-63) IU/L Alkaline Phosphatase 98 (46-116) U/L Total Protein 6.0 L (6.4-8.2) g/dL Albumin 2.6 L (3.4-5.0) g/dL Globulin 3.4 (2.6-4.0) g/dL Albumin/Globulin Ratio 0.8 L (0.9-1.6) 06/02/21 Range/Units 06:46 WBC (4.0-11.0) K/uL RBC (4.50-5.90) M/uL Hgb (13.0-17.0) g/dL Hct (38.0-50.0) % MCV (80.0-98.0) fL MCH (27.0-32.0) pg MCHC (31.0-37.0) g/dL RDW Std Deviation (28.0-62.0) fl RDW Coeff of Ortega (11.0-15.0) % Plt Count (150-400) K/uL MPV (7.40-12.00) fL Nucleated RBC % /100WBC Nucleated RBCs # K/uL Sodium (136-148) mmol/L Potassium (3.5-5.1) mmol/L Chloride (98-107) mmol/L Carbon Dioxide (21.0-32.0) mmol/L BUN (7.0-18.0) mg/dL Creatinine (0.8-1.3) mg/dL Est Cr Clr Drug Dosing mL/min Estimated GFR (MDRD) ml/min Glucose (74-106) mg/dL POC Glucose 111 H (70-99) mg/dL Calcium (8.5-10.1) mg/dL Total Bilirubin (0.2-1.0) mg/dL AST (15-37) IU/L ALT (14-63) IU/L Alkaline Phosphatase (46-116) U/L Total Protein (6.4-8.2) g/dL Albumin (3.4-5.0) g/dL Globulin (2.6-4.0) g/dL Albumin/Globulin Ratio (0.9-1.6) Marvin Results Last 24 Hours: Microbiology 05/30/21 19:03 Aerobic Blood Culture - Preliminary Blood - Venous - Lab Draw NO GROWTH AFTER 2 DAYS Anaerobic Blood Culture - Preliminary NO GROWTH AFTER 2 DAYS 05/30/21 19:03 Aerobic Blood Culture - Preliminary Blood - Venous NO GROWTH AFTER 2 DAYS Anaerobic Blood Culture - Preliminary NO GROWTH AFTER 2 DAYS Med Orders - Current: Current Medications Atorvastatin Calcium (Atorvastatin 40 Mg Tab) 40 mg PO BEDTIME [facility] Last Admin: 06/01/21 21:00 Dose: 40 mg Documented by: Ciprofloxacin (Ciprofloxacin 500 Mg Tab) 500 mg PO BID [facility] Last Admin: 06/02/21 08:34 Dose: 500 mg Documented by: Cyclobenzaprine HCl (Cyclobenzaprine 5 Mg Tab) 5 mg PO TID [facility] Last Admin: 06/02/21 05:07 Dose: 5 mg Documented by: Dextrose/Water (50% Dextrose In Water 50 Ml Syringe) 50 ml IVPUSH ASDIRECTED PRN PRN Reason: Hypoglycemia Enoxaparin Sodium (Enoxaparin 40 Mg/0.4 Ml Syringe) 40 mg SUBCUT Q24H [facility] Last Admin: 06/01/21 18:27 Dose: 40 mg Documented by: Escitalopram Oxalate (Escitalopram 10 Mg Tab) 20 mg PO DAILY [facility] Last Admin: 06/02/21 08:33 Dose: 20 mg Documented by: Glucagon (Glucagon,Human Recombinant 1 Mg Vial) 1 mg IM ASDIRECTED PRN PRN Reason: Hypoglycemia Insulin Aspart (Insulin Aspart 100 Units/Ml 3 Ml Pen) 0 unit SUBCUT TIDAC [facility]; Protocol Last Admin: 06/02/21 07:01 Dose: Not Given Documented by: Metronidazole (Metronidazole 250 Mg Tab) 500 mg PO Q8H [facility] Last Admin: 06/02/21 05:07 Dose: 500 mg Documented by: Oxycodone/Acetaminophen (Acetaminophen/Oxycodone 325-5 Mg Tab) 2 tab PO Q4H PRN PRN Reason: Pain (severe 7-10) Last Admin: 06/01/21 20:58 Dose: 2 tab Documented by: Pantoprazole Sodium (Pantoprazole 40 Mg Tab.Cr) 40 mg PO ACBREAKFAST [facility] Last Admin: 06/02/21 06:47 Dose: 40 mg Documented by: Polyethylene Glycol (Polyethylene Glycol 3350 Powder 17 Gm Packet) 17 gm PO DAILY [facility] Last Admin: 06/02/21 08:34 Dose: 17 gm Documented by: Sodium Chloride (Sodium Chloride 0.9% 2.5 Ml Syringe) 2.5 ml FLUSH ASDIRECTED PRN PRN Reason: Keep Vein Open Last Admin: 05/30/21 18:29 Dose: 2.5 ml Documented by: Sodium Chloride (Sodium Chloride 0.9% 10 Ml Syringe) 10 ml FLUSH ASDIRECTED PRN PRN Reason: Keep Vein Open Last Admin: 05/30/21 18:29 Dose: 10 ml Documented by: Discontinued Medications Albuterol (Albuterol 0.083% 2.5 Mg/3 Ml Neb Soln) 2.5 mg NEB ONETIME PRN PRN Reason: Wheezing Bupivacaine HCl (Bupivacaine 0.5% 30 Ml Sdv) Confirm Administered Dose 30 ml .ROUTE .STK-MED ONE Stop: 05/31/21 12:03 Bupivacaine HCl (Bupivacaine 0.5% 30 Ml Sdv) Confirm Administered Dose 120 ml .ROUTE .STK-MED ONE Stop: 05/31/21 14:06 Cefazolin Sodium (Cefazolin 1 Gm Vial) Confirm Administered Dose 1 gm .ROUTE .STK-MED ONE Stop: 05/31/21 13:22 Dexamethasone (Dexamethasone 4 Mg/Ml 5 Ml Mdv) Confirm Administered Dose 20 mg .ROUTE .STK-MED ONE Stop: 05/31/21 12:07 Droperidol (Droperidol 5 Mg/2 Ml Sdv) 0.625 mg IVPUSH ONETIME PRN PRN Reason: Nausea/Vomiting Enoxaparin Sodium (Enoxaparin 40 Mg/0.4 Ml Syringe) 40 mg SUBCUT Q24H [facility] Last Admin: 05/31/21 18:51 Dose: 40 mg Documented by: Fentanyl (Fentanyl 100 Mcg/2 Ml Sdv) 50 mcg IVPUSH Q5M PRN PRN Reason: Pain (mild 1-3) Fentanyl (Fentanyl 100 Mcg/2 Ml Sdv) Confirm Administered Dose 100 mcg .ROUTE .STK-MED ONE Stop: 05/31/21 12:06 Fentanyl (Fentanyl 100 Mcg/2 Ml Sdv) Confirm Administered Dose 100 mcg .ROUTE .STK-MED ONE Stop: 05/31/21 13:26 Hydromorphone HCl (Hydromorphone 2 Mg/Ml Syringe) 0.5 mg IVPUSH ONETIME ONE Stop: 05/30/21 18:36 Last Admin: 05/30/21 18:55 Dose: 0.5 mg Documented by: Hydromorphone HCl (Hydromorphone 2 Mg/Ml Syringe) 0.5 mg IVPUSH Q2H PRN PRN Reason: Pain (severe 7-10) Last Admin: 05/31/21 15:12 Dose: 0.5 mg Documented by: Hydromorphone HCl (Hydromorphone 2 Mg/Ml Syringe) 1 mg IVPUSH Q10M PRN PRN Reason: Pain (moderate 4-6) Last Admin: 05/31/21 15:20 Dose: 0.5 mg Documented by: Sodium Chloride (Normal Saline) 1,000 mls @ 999 mls/hr IV STAT ONE Stop: 05/30/21 19:24 Last Infusion: 05/30/21 19:17 Dose: Infused Documented by: Sodium Chloride (Normal Saline) 1,000 mls @ 999 mls/hr IV STAT ONE Stop: 05/30/21 20:02 Last Admin: 05/30/21 19:18 Dose: 999 mls/hr Documented by: Piperacillin Sod/Tazobactam (Sod 3.375 gm/ Sodium Chloride) 50 mls @ 100 mls/hr IV ONETIME ONE Stop: 05/30/21 22:35 Last Admin: 05/30/21 22:49 Dose: 100 mls/hr Documented by: Sodium Chloride (Normal Saline) 1,000 mls @ 125 mls/hr IV STAT ONE Stop: 05/31/21 06:15 Last Admin: 05/30/21 22:51 Dose: 125 mls/hr Documented by: Piperacillin Sod/Tazobactam (Sod 3.375 gm/ Sodium Chloride) 50 mls @ 100 mls/hr IV Q6H [facility] Last Admin: 05/31/21 19:56 Dose: Not Given Documented by: Sodium Chloride (Normal Saline) 1,000 mls @ 125 mls/hr IV ASDIRECTED [facility] Last Admin: 05/31/21 09:50 Dose: 125 mls/hr Documented by: Piperacillin Sod/Tazobactam (Sod 3.375 gm/ Sodium Chloride) 100 mls @ 200 mls/hr IV Q6H [facility] Last Admin: 06/01/21 09:39 Dose: 200 mls/hr Documented by: Acetaminophen (Ofirmev 1000 Mg/100 Ml) Confirm Administered Dose 100 mls @ as directed .ROUTE .STK-MED ONE Stop: 05/31/21 12:53 Insulin Aspart (Insulin Aspart 100 Units/Ml 3 Ml Pen) 0 unit SUBCUT Q6H [facility]; Protocol Last Admin: 06/01/21 23:50 Dose: Not Given Documented by: Iopamidol (Iopamidol 755 Mg/Ml 100 Ml Bottle) 100 ml IVPUSH ONETIME ONE Stop: 05/30/21 20:52 Last Admin: 05/30/21 20:51 Dose: 100 ml Documented by: Ketorolac Tromethamine (Ketorolac 30 Mg/Ml Sdv) 30 mg IVPUSH ONETIME ONE Stop: 05/30/21 18:36 Last Admin: 05/30/21 18:56 Dose: 30 mg Documented by: Ketorolac Tromethamine (Ketorolac 30 Mg/Ml Sdv) Confirm Administered Dose 30 mg .ROUTE .STK-MED ONE Stop: 05/31/21 14:36 Ketorolac Tromethamine (Ketorolac 15 Mg/Ml Sdv) 15 mg IVPUSH Q6H [facility] Stop: 06/01/21 15:01 Last Admin: 06/01/21 14:58 Dose: 15 mg Documented by: Lidocaine (Lidocaine 2% 5 Ml Sdv) Confirm Administered Dose 5 ml .ROUTE .STK-MED ONE Stop: 05/31/21 12:06 Metoclopramide HCl (Metoclopramide 10 Mg/2 Ml Sdv) 10 mg IVPUSH ONETIME PRN PRN Reason: Nausea/Vomiting Midazolam HCl (Midazolam 1 Mg/Ml 2 Ml Sdv) Confirm Administered Dose 2 mg .ROUTE .STNovogen-MED ONE Stop: 05/31/21 12:06 Morphine Sulfate (Morphine 2 Mg/Ml Syringe) 2 mg IVPUSH Q10M PRN PRN Reason: Pain (severe 7-10) Naloxone HCl (Naloxone 0.4 Mg/Ml Syringe) 0.1 mg IVPUSH ASDIRECTED PRN PRN Reason: Respiratory Depression Octyl Cyanoacrylate (Octyl 2-Cyanoacrylate 1 Tube) Confirm Administered Dose 1 applic .ROUTE .STNovogen-MED ONE Stop: 05/31/21 12:04 Ondansetron HCl (Ondansetron 4 Mg/2 Ml Sdv) 4 mg IVPUSH ONETIME ONE Stop: 05/30/21 18:36 Last Admin: 05/30/21 18:57 Dose: 4 mg Documented by: Ondansetron HCl (Ondansetron 4 Mg/2 Ml Sdv) 4 mg IVPUSH Q4H PRN PRN Reason: Nausea Ondansetron HCl (Ondansetron 4 Mg/2 Ml Sdv) 4 mg IVPUSH ONETIME PRN PRN Reason: Nausea/Vomiting Ondansetron HCl (Ondansetron 4 Mg/2 Ml Sdv) Confirm Administered Dose 4 mg .ROUTE .STNovogen-MED ONE Stop: 05/31/21 12:07 Propofol (Propofol 200 Mg/20 Ml Sdv) Confirm Administered Dose 200 mg .ROUTE .STNovogen-MED ONE Stop: 05/31/21 12:06 Rocuronium [place] (Rocuronium [place] 50 Mg/5 Ml Syringe) Confirm Administered Dose 50 mg .ROUTE .STNovogen-MED ONE Stop: 05/31/21 12:06 Rocuronium [place] (Rocuronium [place] 50 Mg/5 Ml Syringe) Confirm Administered Dose 50 mg .ROUTE .STNovogen-MED ONE Stop: 05/31/21 13:51 Sugammadex Sodium (Sugammadex Sodium 200 Mg/2 Ml Vial) Confirm Administered Dose 200 mg .ROUTE .STK-MED ONE Stop: 05/31/21 14:35 - Exam Urinary Catheter Total Time: 0Days 23Hours General: Alert, Oriented, Cooperative HEENT: EOMI Neck: Supple Lungs: Clear to Auscultation Cardiovascular: Regular Rate, Regular Rhythm, No Murmurs GI/Abdominal Exam: Normal Bowel Sounds, Other (Dressing over umbilicus shows bloody discharge. Incision is clean dry and intact.) Extremities: Normal Inspection, No Pedal Edema. No: Joint Swelling, Del's Sign Peripheral Pulses: 2+: Dorsalis Pedis (L), Dorsalis Pedis (R) Wound/Incisions: Healing Well, Dressing Dry and Intact Neurological: No New Focal Deficit - Patient Data Lab Results Last 24 hrs: Laboratory Results - last 24 hr 06/01/21 06/02/21 06/02/21 Range/Units 17:29 06:20 06:20 WBC 12.07 H (4.0-11.0) K/uL RBC 4.31 L (4.50-5.90) M/uL Hgb 12.3 L (13.0-17.0) g/dL Hct 37.1 L (38.0-50.0) % MCV 86.1 (80.0-98.0) fL MCH 28.5 (27.0-32.0) pg MCHC 33.2 (31.0-37.0) g/dL RDW Std Deviation 48.7 (28.0-62.0) fl RDW Coeff of Ortega 15 (11.0-15.0) % Plt Count 300 (150-400) K/uL MPV 10.30 (7.40-12.00) fL Nucleated RBC % 0.0 /100WBC Nucleated RBCs # 0 K/uL Sodium 141 (136-148) mmol/L Potassium 3.9 (3.5-5.1) mmol/L Chloride 108 H (98-107) mmol/L Carbon Dioxide 25.4 (21.0-32.0) mmol/L BUN 27 H (7.0-18.0) mg/dL Creatinine 1.3 (0.8-1.3) mg/dL Est Cr Clr Drug Dosing 59.53 mL/min Estimated GFR (MDRD) 55.2 ml/min Glucose 118 H (74-106) mg/dL POC Glucose 146 H (70-99) mg/dL Calcium 7.8 L (8.5-10.1) mg/dL Total Bilirubin 0.5 (0.2-1.0) mg/dL AST 27 (15-37) IU/L ALT 43 (14-63) IU/L Alkaline Phosphatase 98 (46-116) U/L Total Protein 6.0 L (6.4-8.2) g/dL Albumin 2.6 L (3.4-5.0) g/dL Globulin 3.4 (2.6-4.0) g/dL Albumin/Globulin Ratio 0.8 L (0.9-1.6) 06/02/21 Range/Units 06:46 WBC (4.0-11.0) K/uL RBC (4.50-5.90) M/uL Hgb (13.0-17.0) g/dL Hct (38.0-50.0) % MCV (80.0-98.0) fL MCH (27.0-32.0) pg MCHC (31.0-37.0) g/dL RDW Std Deviation (28.0-62.0) fl RDW Coeff of Ortega (11.0-15.0) % Plt Count (150-400) K/uL MPV (7.40-12.00) fL Nucleated RBC % /100WBC Nucleated RBCs # K/uL Sodium (136-148) mmol/L Potassium (3.5-5.1) mmol/L Chloride (98-107) mmol/L Carbon Dioxide (21.0-32.0) mmol/L BUN (7.0-18.0) mg/dL Creatinine (0.8-1.3) mg/dL Est Cr Clr Drug Dosing mL/min Estimated GFR (MDRD) ml/min Glucose (74-106) mg/dL POC Glucose 111 H (70-99) mg/dL Calcium (8.5-10.1) mg/dL Total Bilirubin (0.2-1.0) mg/dL AST (15-37) IU/L ALT (14-63) IU/L Alkaline Phosphatase (46-116) U/L Total Protein (6.4-8.2) g/dL Albumin (3.4-5.0) g/dL Globulin (2.6-4.0) g/dL Albumin/Globulin Ratio (0.9-1.6) Result Diagrams: 06/02/21 06:20 06/02/21 06:20 Marvin Results Last 24 hrs: Microbiology 05/30/21 19:03 Aerobic Blood Culture - Preliminary Blood - Venous - Lab Draw NO GROWTH AFTER 2 DAYS Anaerobic Blood Culture - Preliminary NO GROWTH AFTER 2 DAYS 05/30/21 19:03 Aerobic Blood Culture - Preliminary Blood - Venous NO GROWTH AFTER 2 DAYS Anaerobic Blood Culture - Preliminary NO GROWTH AFTER 2 DAYS Sepsis Event Note - Evaluation Sepsis Screening Result: No Definite Risk - Focused Exam Vital Signs: Vital Signs Temp Pulse Resp BP Pulse Ox 06/02/21 11:00 97.0 F 62 18 156/93 H 92 L 06/02/21 07:55 95.7 F L 69 22 H 147/93 H 92 L 06/02/21 04:00 97.7 F 62 18 132/68 94 L - Problem List & Annotations (1) Acute cholecystitis SNOMED Code(s): 19050148 Code(s): K81.0 - ACUTE CHOLECYSTITIS Status: Acute Current Visit: Yes - Problem List Review Problem List Initiated/Reviewed/Updated: Yes - My Orders Last 24 Hours: My Active Orders 06/01/21 12:30 metroNIDAZOLE 500 mg PO Q8H 06/01/21 13:00 Ciprofloxacin [Ciprofloxacin HCl] 500 mg PO BID 06/01/21 18:00 Enoxaparin [Lovenox] 40 mg SUBCUT Q24H 06/02/21 07:30 Pantoprazole [ProTONIX] 40 mg PO ACBREAKFAST - Plan Plan:: 65-year-old male admitted for acute cholecystitis and is postop day 2 for cholecystectomy. Patient is doing well and tolerating diet. Continue Lovenox 40 mg daily. Continue ciprofloxacin and Flagyl. Patient is on a sliding scale for hyperglycemia. Patient likely to be discharged tomorrow.
[2021-06-02] MEDS: Acetaminophen/oxyCODONE 325-5 MG Tab PO PRN (16:00)
[2021-06-02] MEDS: Enoxaparin 40 MG/0.4 ML Syringe SUBCUT SCH (17:23)
[2021-06-02] MEDS: Lisinopril 10 MG Tab PO SCH (20:36)
[2021-06-02] MEDS: atorvaSTATin 40 MG Tab PO SCH (20:37)
[2021-06-03] MEDS: Acetaminophen/oxyCODONE 325-5 MG Tab PO PRN (02:55)
[2021-06-03] MEDS: Cyclobenzaprine 5 MG Tab PO SCH (05:22)
[2021-06-03] MEDS: metroNIDAZOLE 250 MG Tab PO SCH (05:22)
[2021-06-03 06:31] LABS: BLOOD UREA NITROGEN,BUN 19 mg/dL (7.0-18.0); CARBON DIOXIDE,CO2 25.2 mmol/L (21.0-32.0); CHLORIDE,CL 108 mmol/L (98-107); GLUCOSE RANDOM 106 mg/dL (74-106); POTASSIUM,K 3.6 mmol/L (3.5-5.1); SODIUM,NA 142 mmol/L (136-148)
[2021-06-03] MEDS: Insulin Aspart 100 Units/ML 3 ML Pen SUBCUT SCH (06:49)
[2021-06-03] MEDS: Pantoprazole 40 MG Tab.CR PO SCH (08:10)
[2021-06-03] MEDS: Ciprofloxacin 500 MG Tab PO SCH (08:10)
[2021-06-03] MEDS: Escitalopram 10 MG Tab PO SCH (08:10)
[2021-06-03] MEDS: Lisinopril 10 MG Tab PO SCH (08:11)
[2021-06-03] MEDS: Polyethylene Glycol 3350 Powder 17 GM Packet PO SCH (08:11)
[2021-06-03] MEDS ORDERED: Lisinopril 10 MG Tab PO SCH (09:00)
--- NOTE | 2021-06-03 11:35 | PCM.DCSUM1 ---
Discharge Summary - Hospital Course Free Text/Narrative:: 65-year-old male with history of diabetes and hypertension presented complaining of right upper quadrant pain and vomiting for 3 days. Patient was managed for acute cholecystitis and placed on IV Zosyn. Surgery was consulted and patient had an open cholecystectomy which found necrotic cholecystitis. Patient tolerated the procedure well and diet was advanced as tolerated. Pain was controlled with Percocet. DVT prophylaxis with Lovenox. Patient was on a sliding scale. Patient had a MAURICE drain in place which was removed by surgery on postop day 2. Patient was switched from Zosyn to p.o. ciprofloxacin and Flagyl on postop day 1. Patient's WBC count down trended and is stable for discharge. Patient was cleared for discharge by surgery and given instructions for seeking medical attention. He has a follow-up appointment with Dr. Quinteros on 06/08/21. Patient is being discharged with ciprofloxacin and Flagyl to complete a total of 10 days. Pain controlled with Percocet. - Discharge Data Discharge Date: 06/03/21 Discharge Disposition: Home, Self-Care 01 Condition: Stable - Referral to Home Health Primary Care Physician: PCP Not In Area - Discharge Diagnosis/Problem(s) (1) Acute cholecystitis SNOMED Code(s): 16664740 ICD Code: K81.0 - ACUTE CHOLECYSTITIS Status: Acute Current Visit: Yes - Patient Summary/Data Operative Procedure(s) Performed: Laparoscopic converted to open cholecystectomy Consults: Consultations 05/30/21 22:10 Consult to Physician [CONS] Stat - Patient Instructions Diet: Regular Diet as Tolerated Activity: No Lifting Over 20 Pounds (for six weeks after surgery ), No Strenuous Activities, Rest and Relax Today Activity, Other: No work for 2 weeks. Driving: Do Not Drive (While on narcotics or for one week after surgery ) Showering/Bathing: May Shower, No Tub Bathing/Swimming (for 2 weeks ) Wound/Incision Care: Keep Operative Site/Wound Site Clean and Dry Notify Provider of: Fever, Increased Pain, Swelling and Redness, Drainage, Nausea and/or Vomiting Other/Special Instructions: Rosa should come out 7-10 days after surgery. Please schedule with Dr. Quinteros or another provider to have this done. - Discharge Plan *PRESCRIPTION DRUG MONITORING PROGRAM REVIEWED*: Yes *COPY OF PRESCRIPTION DRUG MONITORING REPORT IN PATIENT ALTAGRACIA: Yes Prescriptions/Med Rec: Ciprofloxacin [Ciprofloxacin HCl] 500 mg PO BID 8 Days #16 tablet Cyclobenzaprine [Flexeril] 5 mg PO TID PRN #20 tablet PRN Reason: Pain metroNIDAZOLE 500 mg PO Q8H 8 Days #24 tablet Acetaminophen/oxyCODONE [Percocet 325-5 MG] 1 tab PO Q6HR PRN #20 tab PRN Reason: Pain (Severe 7-10) Home Medications: Home Meds Aspirin [Ecotrin EC] 81 mg PO DAILY 05/31/21 [History] Escitalopram [Lexapro] 20 mg PO DAILY 05/31/21 [History] Meloxicam PO DAILY 05/31/21 [History] Naproxen Sodium [Naproxen Sodium ER] 500 mg PO BID 05/31/21 [History] atorvaSTATin [Lipitor] 40 mg PO DAILY 05/31/21 [History] metFORMIN [Glucophage XR] 500 mg PO DAILY 05/31/21 [History] Acetaminophen/oxyCODONE [Percocet 325-5 MG] 1 tab PO Q6HR PRN #20 tab 06/03/21 [Rx] Ciprofloxacin [Ciprofloxacin HCl] 500 mg PO BID 8 Days #16 tablet 06/03/21 [Rx] Cyclobenzaprine [Flexeril] 5 mg PO TID PRN #20 tablet 06/03/21 [Rx] lisinopriL [Prinivil] 10 mg PO DAILY tablet 06/03/21 [Rx] metroNIDAZOLE 500 mg PO Q8H 8 Days #24 tablet 06/03/21 [Rx] Patient Handouts: Cyclobenzaprine tablets, Open Cholecystectomy, Care After, Acetaminophen; Oxycodone tablets, Sepsis, Diagnosis, Adult, Cholecystitis, [id number], Ciprofloxacin tablets Referrals: Cee Quinteros MD [Physician] - 06/08/21 2:00 pm - Discharge Summary/Plan Comment DC Time >30 min.: Yes - General Info Admission Dx/Problem (Free Text: Admission Diagnosis/Problem Admission Diagnosis/Problem Acute cholecystitis - Review of Systems General: Reports: No Symptoms HEENT: Reports: No Symptoms Pulmonary: Reports: No Symptoms Cardiovascular: Denies: Chest Pain, Palpitations, Dyspnea on Exertion, Edema, Lightheadedness Gastrointestinal: Reports: Other (Surgical incisions are clean dry and intact.). Denies: Constipation, Decreased Appetite, Diarrhea, Difficulty Swallowing, Hematochezia, Melena, Nausea, Vomiting Genitourinary: Reports: No Symptoms Musculoskeletal: Reports: No Symptoms Skin: Reports: No Symptoms Neurological: Reports: No Symptoms - Patient Data Vitals - Most Recent: Last Vital Signs Temp 96.0 F L 06/03/21 07:57 Pulse 53 L 06/03/21 07:57 Resp 22 H 06/03/21 07:57 BP 169/82 H 06/03/21 08:11 Pulse Ox 92 L 06/03/21 07:57 Weight - Most Recent: 226 lb 3.2 oz I&O - Last 24 hours: Intake & Output 06/02/21 06/03/21 06/03/21 22:59 06:59 14:59 Intake Total 710 480 Output Total 750 750 Balance -40 -270 Lab Results - Last 24 hrs: Laboratory Results - last 24 hr 06/02/21 06/02/21 06/03/21 Range/Units 13:20 17:19 05:20 WBC 8.64 (4.0-11.0) K/uL RBC 4.15 L (4.50-5.90) M/uL Hgb 11.8 L (13.0-17.0) g/dL Hct 35.4 L (38.0-50.0) % MCV 85.3 (80.0-98.0) fL MCH 28.4 (27.0-32.0) pg MCHC 33.3 (31.0-37.0) g/dL RDW Std Deviation 47.2 (28.0-62.0) fl RDW Coeff of Ortega 15 (11.0-15.0) % Plt Count 292 (150-400) K/uL MPV 10.10 (7.40-12.00) fL Neut % (Auto) 71.7 (48.0-80.0) % Lymph % (Auto) 13.9 L (16.0-40.0) % [place] % (Auto) 12.5 (0.0-15.0) % Eos % (Auto) 1.7 (0.0-7.0) % Baso % (Auto) 0.2 (0.0-1.5) % Neut # (Auto) 6.2 H (1.4-5.7) K/uL Lymph # (Auto) 1.2 (0.6-2.4) K/uL [place] # (Auto) 1.1 H (0.0-0.8) K/uL Eos # (Auto) 0.2 (0.0-0.7) K/uL Baso # (Auto) 0.0 (0.0-0.1) K/uL Nucleated RBC % 0.0 /100WBC Nucleated RBCs # 0 K/uL Sodium (136-148) mmol/L Potassium (3.5-5.1) mmol/L Chloride (98-107) mmol/L Carbon Dioxide (21.0-32.0) mmol/L BUN (7.0-18.0) mg/dL Creatinine (0.8-1.3) mg/dL Est Cr Clr Drug Dosing mL/min Estimated GFR (MDRD) ml/min Glucose (74-106) mg/dL POC Glucose 126 H 87 (70-99) mg/dL Calcium (8.5-10.1) mg/dL Total Bilirubin (0.2-1.0) mg/dL AST (15-37) IU/L ALT (14-63) IU/L Alkaline Phosphatase (46-116) U/L Total Protein (6.4-8.2) g/dL Albumin (3.4-5.0) g/dL Globulin (2.6-4.0) g/dL Albumin/Globulin Ratio (0.9-1.6) 06/03/21 06/03/21 Range/Units 05:20 06:18 WBC (4.0-11.0) K/uL RBC (4.50-5.90) M/uL Hgb (13.0-17.0) g/dL Hct (38.0-50.0) % MCV (80.0-98.0) fL MCH (27.0-32.0) pg MCHC (31.0-37.0) g/dL RDW Std Deviation (28.0-62.0) fl RDW Coeff of Ortega (11.0-15.0) % Plt Count (150-400) K/uL MPV (7.40-12.00) fL Neut % (Auto) (48.0-80.0) % Lymph % (Auto) (16.0-40.0) % [place] % (Auto) (0.0-15.0) % Eos % (Auto) (0.0-7.0) % Baso % (Auto) (0.0-1.5) % Neut # (Auto) (1.4-5.7) K/uL Lymph # (Auto) (0.6-2.4) K/uL [place] # (Auto) (0.0-0.8) K/uL Eos # (Auto) (0.0-0.7) K/uL Baso # (Auto) (0.0-0.1) K/uL Nucleated RBC % /100WBC Nucleated RBCs # K/uL Sodium 142 (136-148) mmol/L Potassium 3.6 (3.5-5.1) mmol/L Chloride 108 H (98-107) mmol/L Carbon Dioxide 25.2 (21.0-32.0) mmol/L BUN 19 H (7.0-18.0) mg/dL Creatinine 1.1 (0.8-1.3) mg/dL Est Cr Clr Drug Dosing 70.36 mL/min Estimated GFR (MDRD) > 60.0 ml/min Glucose 106 (74-106) mg/dL POC Glucose 103 H (70-99) mg/dL Calcium 7.6 L (8.5-10.1) mg/dL Total Bilirubin 0.8 (0.2-1.0) mg/dL AST 25 (15-37) IU/L ALT 38 (14-63) IU/L Alkaline Phosphatase 99 (46-116) U/L Total Protein 5.8 L (6.4-8.2) g/dL Albumin 2.6 L (3.4-5.0) g/dL Globulin 3.2 (2.6-4.0) g/dL Albumin/Globulin Ratio 0.8 L (0.9-1.6) [facility]MA Results - Last 24 hrs: Microbiology 05/30/21 19:03 Aerobic Blood Culture - Preliminary Blood - Venous - Lab Draw NO GROWTH AFTER 3 DAYS Anaerobic Blood Culture - Preliminary NO GROWTH AFTER 3 DAYS 05/30/21 19:03 Aerobic Blood Culture - Preliminary Blood - Venous NO GROWTH AFTER 3 DAYS Anaerobic Blood Culture - Preliminary NO GROWTH AFTER 3 DAYS Med Orders - Current: Current Medications Atorvastatin Calcium (Atorvastatin 40 Mg Tab) 40 mg PO BEDTIME [facility] Last Admin: 06/02/21 20:37 Dose: 40 mg Documented by: Ciprofloxacin (Ciprofloxacin 500 Mg Tab) 500 mg PO BID [facility] Last Admin: 06/03/21 08:10 Dose: 500 mg Documented by: Cyclobenzaprine HCl (Cyclobenzaprine 5 Mg Tab) 5 mg PO TID [facility] Last Admin: 06/03/21 05:22 Dose: 5 mg Documented by: Dextrose/Water (50% Dextrose In Water 50 Ml Syringe) 50 ml IVPUSH ASDIRECTED PRN PRN Reason: Hypoglycemia Enoxaparin Sodium (Enoxaparin 40 Mg/0.4 Ml Syringe) 40 mg SUBCUT Q24H [facility] Last Admin: 06/02/21 17:23 Dose: 40 mg Documented by: Escitalopram Oxalate (Escitalopram 10 Mg Tab) 20 mg PO DAILY [facility] Last Admin: 06/03/21 08:10 Dose: 20 mg Documented by: Glucagon (Glucagon,Human Recombinant 1 Mg Vial) 1 mg IM ASDIRECTED PRN PRN Reason: Hypoglycemia Insulin Aspart (Insulin Aspart 100 Units/Ml 3 Ml Pen) 0 unit SUBCUT TIDAC [facility]; Protocol Last Admin: 06/03/21 06:49 Dose: Not Given Documented by: Lisinopril (Lisinopril 10 Mg Tab) 10 mg PO DAILY [facility] Last Admin: 06/03/21 08:11 Dose: 10 mg Documented by: Metronidazole (Metronidazole 250 Mg Tab) 500 mg PO Q8H [facility] Last Admin: 06/03/21 05:22 Dose: 500 mg Documented by: Oxycodone/Acetaminophen (Acetaminophen/Oxycodone 325-5 Mg Tab) 2 tab PO Q4H PRN PRN Reason: Pain (severe 7-10) Last Admin: 06/03/21 02:55 Dose: 2 tab Documented by: Pantoprazole Sodium (Pantoprazole 40 Mg Tab.Cr) 40 mg PO ACBREAKFAST [facility] Last Admin: 06/03/21 08:10 Dose: 40 mg Documented by: Polyethylene Glycol (Polyethylene Glycol 3350 Powder 17 Gm Packet) 17 gm PO DAILY [facility] Last Admin: 06/03/21 08:11 Dose: 17 gm Documented by: Sodium Chloride (Sodium Chloride 0.9% 2.5 Ml Syringe) 2.5 ml FLUSH ASDIRECTED PRN PRN Reason: Keep Vein Open Last Admin: 05/30/21 18:29 Dose: 2.5 ml Documented by: Sodium Chloride (Sodium Chloride 0.9% 10 Ml Syringe) 10 ml FLUSH ASDIRECTED PRN PRN Reason: Keep Vein Open Last Admin: 05/30/21 18:29 Dose: 10 ml Documented by: Discontinued Medications Albuterol (Albuterol 0.083% 2.5 Mg/3 Ml Neb Soln) 2.5 mg NEB ONETIME PRN PRN Reason: Wheezing Bupivacaine HCl (Bupivacaine 0.5% 30 Ml Sdv) Confirm Administered Dose 30 ml .ROUTE .STK-MED ONE Stop: 05/31/21 12:03 Bupivacaine HCl (Bupivacaine 0.5% 30 Ml Sdv) Confirm Administered Dose 120 ml .ROUTE .STK-MED ONE Stop: 05/31/21 14:06 Cefazolin Sodium (Cefazolin 1 Gm Vial) Confirm Administered Dose 1 gm .ROUTE .STK-MED ONE Stop: 05/31/21 13:22 Dexamethasone (Dexamethasone 4 Mg/Ml 5 Ml Mdv) Confirm Administered Dose 20 mg .ROUTE .STK-MED ONE Stop: 05/31/21 12:07 Droperidol (Droperidol 5 Mg/2 Ml Sdv) 0.625 mg IVPUSH ONETIME PRN PRN Reason: Nausea/Vomiting Enoxaparin Sodium (Enoxaparin 40 Mg/0.4 Ml Syringe) 40 mg SUBCUT Q24H [facility] Last Admin: 05/31/21 18:51 Dose: 40 mg Documented by: Fentanyl (Fentanyl 100 Mcg/2 Ml Sdv) 50 mcg IVPUSH Q5M PRN PRN Reason: Pain (mild 1-3) Fentanyl (Fentanyl 100 Mcg/2 Ml Sdv) Confirm Administered Dose 100 mcg .ROUTE .STK-MED ONE Stop: 05/31/21 12:06 Fentanyl (Fentanyl 100 Mcg/2 Ml Sdv) Confirm Administered Dose 100 mcg .ROUTE .STK-MED ONE Stop: 05/31/21 13:26 Hydromorphone HCl (Hydromorphone 2 Mg/Ml Syringe) 0.5 mg IVPUSH ONETIME ONE Stop: 05/30/21 18:36 Last Admin: 05/30/21 18:55 Dose: 0.5 mg Documented by: Hydromorphone HCl (Hydromorphone 2 Mg/Ml Syringe) 0.5 mg IVPUSH Q2H PRN PRN Reason: Pain (severe 7-10) Last Admin: 05/31/21 15:12 Dose: 0.5 mg Documented by: Hydromorphone HCl (Hydromorphone 2 Mg/Ml Syringe) 1 mg IVPUSH Q10M PRN PRN Reason: Pain (moderate 4-6) Last Admin: 05/31/21 15:20 Dose: 0.5 mg Documented by: Sodium Chloride (Normal Saline) 1,000 mls @ 999 mls/hr IV STAT ONE Stop: 05/30/21 19:24 Last Infusion: 05/30/21 19:17 Dose: Infused Documented by: Sodium Chloride (Normal Saline) 1,000 mls @ 999 mls/hr IV STAT ONE Stop: 05/30/21 20:02 Last Admin: 05/30/21 19:18 Dose: 999 mls/hr Documented by: Piperacillin Sod/Tazobactam (Sod 3.375 gm/ Sodium Chloride) 50 mls @ 100 mls/hr IV ONETIME ONE Stop: 05/30/21 22:35 Last Admin: 05/30/21 22:49 Dose: 100 mls/hr Documented by: Sodium Chloride (Normal Saline) 1,000 mls @ 125 mls/hr IV STAT ONE Stop: 05/31/21 06:15 Last Admin: 05/30/21 22:51 Dose: 125 mls/hr Documented by: Piperacillin Sod/Tazobactam (Sod 3.375 gm/ Sodium Chloride) 50 mls @ 100 mls/hr IV Q6H [facility] Last Admin: 05/31/21 19:56 Dose: Not Given Documented by: Sodium Chloride (Normal Saline) 1,000 mls @ 125 mls/hr IV ASDIRECTED [facility] Last Admin: 05/31/21 09:50 Dose: 125 mls/hr Documented by: Piperacillin Sod/Tazobactam (Sod 3.375 gm/ Sodium Chloride) 100 mls @ 200 mls/hr IV Q6H [facility] Last Admin: 06/01/21 09:39 Dose: 200 mls/hr Documented by: Acetaminophen (Ofirmev 1000 Mg/100 Ml) Confirm Administered Dose 100 mls @ as directed .ROUTE .STK-MED ONE Stop: 05/31/21 12:53 Insulin Aspart (Insulin Aspart 100 Units/Ml 3 Ml Pen) 0 unit SUBCUT Q6H [facility]; Protocol Last Admin: 06/01/21 23:50 Dose: Not Given Documented by: Iopamidol (Iopamidol 755 Mg/Ml 100 Ml Bottle) 100 ml IVPUSH ONETIME ONE Stop: 05/30/21 20:52 Last Admin: 05/30/21 20:51 Dose: 100 ml Documented by: Ketorolac Tromethamine (Ketorolac 30 Mg/Ml Sdv) 30 mg IVPUSH ONETIME ONE Stop: 05/30/21 18:36 Last Admin: 05/30/21 18:56 Dose: 30 mg Documented by: Ketorolac Tromethamine (Ketorolac 30 Mg/Ml Sdv) Confirm Administered Dose 30 mg .ROUTE .STK-MED ONE Stop: 05/31/21 14:36 Ketorolac Tromethamine (Ketorolac 15 Mg/Ml Sdv) 15 mg IVPUSH Q6H [facility] Stop: 06/01/21 15:01 Last Admin: 06/01/21 14:58 Dose: 15 mg Documented by: Lidocaine (Lidocaine 2% 5 Ml Sdv) Confirm Administered Dose 5 ml .ROUTE .STK-MED ONE Stop: 05/31/21 12:06 Lisinopril (Lisinopril 10 Mg Tab) 10 mg PO DAILY [facility] Metoclopramide HCl (Metoclopramide 10 Mg/2 Ml Sdv) 10 mg IVPUSH ONETIME PRN PRN Reason: Nausea/Vomiting Midazolam HCl (Midazolam 1 Mg/Ml 2 Ml Sdv) Confirm Administered Dose 2 mg .ROUTE .STK-MED ONE Stop: 05/31/21 12:06 Morphine Sulfate (Morphine 2 Mg/Ml Syringe) 2 mg IVPUSH Q10M PRN PRN Reason: Pain (severe 7-10) Naloxone HCl (Naloxone 0.4 Mg/Ml Syringe) 0.1 mg IVPUSH ASDIRECTED PRN PRN Reason: Respiratory Depression Octyl Cyanoacrylate (Octyl 2-Cyanoacrylate 1 Tube) Confirm Administered Dose 1 applic .ROUTE .STK-MED ONE Stop: 05/31/21 12:04 Ondansetron HCl (Ondansetron 4 Mg/2 Ml Sdv) 4 mg IVPUSH ONETIME ONE Stop: 05/30/21 18:36 Last Admin: 05/30/21 18:57 Dose: 4 mg Documented by: Ondansetron HCl (Ondansetron 4 Mg/2 Ml Sdv) 4 mg IVPUSH Q4H PRN PRN Reason: Nausea Ondansetron HCl (Ondansetron 4 Mg/2 Ml Sdv) 4 mg IVPUSH ONETIME PRN PRN Reason: Nausea/Vomiting Ondansetron HCl (Ondansetron 4 Mg/2 Ml Sdv) Confirm Administered Dose 4 mg .ROUTE .STK-MED ONE Stop: 05/31/21 12:07 Propofol (Propofol 200 Mg/20 Ml Sdv) Confirm Administered Dose 200 mg .ROUTE .STK-MED ONE Stop: 05/31/21 12:06 Rocuronium [place] (Rocuronium [place] 50 Mg/5 Ml Syringe) Confirm Administered Dose 50 mg .ROUTE .STK-MED ONE Stop: 05/31/21 12:06 Rocuronium [place] (Rocuronium [place] 50 Mg/5 Ml Syringe) Confirm Administered Dose 50 mg .ROUTE .STK-MED ONE Stop: 05/31/21 13:51 Sugammadex Sodium (Sugammadex Sodium 200 Mg/2 Ml Vial) Confirm Administered Dose 200 mg .ROUTE .STK-MED ONE Stop: 05/31/21 14:35 - Exam General: Reports: Alert, Oriented, Cooperative, No Acute Distress HEENT: Reports: EOMI Neck: Reports: Supple Lungs: Reports: Clear to Auscultation, Normal Respiratory Effort Cardiovascular: Reports: Regular Rate, Regular Rhythm, No Murmurs GI/Abdominal Exam: Normal Bowel Sounds, Soft, No Distention, Tender Extremities: Normal Inspection. No: Pedal Edema, Joint Swelling, Del's Sign, Leg Pain Skin: Reports: Warm, Dry, Intact Wound/Incisions: Reports: Healing Well, No Drainage Neurological: Reports: No New Focal Deficit Psy/Mental Status: Reports: Alert, Normal Affect, Normal Mood
== END 2021-06-03 12:10 | disposition home or self-care (01) | DRG 854 ==
LOC: MW.ED 17:23 → MW.MS 22:24
PROVIDERS: ADMIT Internal Medicine; ATTEND Internal Medicine
PROC: 0FT40ZZ Resection of Gallbladder, Open Approach (ICD-10-PCS; principal; 2021-05-31)
PROC: 0FJ44ZZ Inspection of Gallbladder, Percutaneous Endoscopic Approach (ICD-10-PCS; 2021-05-31)
DX: R11.0 Nausea (principal); A41.9 Sepsis, unspecified organism; H54.7 Unspecified visual loss; E78.00 Pure hypercholesterolemia, unspecified; K81.0 Acute cholecystitis; K76.0 Fatty (change of) liver, not elsewhere classified; I10 Essential (primary) hypertension; Z79.84 Long term (current) use of oral hypoglycemic drugs; E11.9 Type 2 diabetes mellitus without complications; Z79.4 Long term (current) use of insulin; E78.5 Hyperlipidemia, unspecified
CPT/HCPCS: 36415; 51702; 71045; 74177; 76705; 80053; 83036; 83605; 83690; 83735; 84484; 85025; 87040 ×2; 93005; 96374; 96375; 99285; J1170; J1885; J2405; J7030 ×3; Q9967; 80048; 81001; 82947; 84100; 85027; 86850; 86900; 86901; 93010; 99284; A9270-GY; J0131; J0330; J0690; J1100; J1650; J1815-GY; J2250; J2543; J2704; J3010; J3490